=== PATIENT | female | born 1970 ===

== ENCOUNTER 2017-01-25 02:55 | Inpatient (IN) | payer MEDICARE ==
[2017-01-25 02:56] VITALS: BMI 24.2
[2017-01-25 05:19] LABS: BASO # 0.1 K/uL (0.0-0.2); BASO % 0.8 % (0.0-2.0); EOS # 0.2 K/uL (0.0-0.7); EOS % 1.4 % (0.0-4.0); HEMATOCRIT 42.8 % (34.0-47.0); LYMPH # 2.7 K/uL (1.0-4.3); LYMPH % 18.6 % (20.0-40.0); MEAN CELL VOLUME 99.9 fl (81.0-99.0); MEAN CORPUSCULAR HEMOGLOBIN 33.5 pg (27.0-31.0); MEAN CORPUSCULAR HGB CONC 33.5 g/dL (33.0-37.0); MEAN PLATELET VOLUME 7.9 fl (7.2-11.7); MONO # 0.7 K/uL (0.0-0.8); MONO % 4.7 % (0.0-10.0); NEUT # 10.6 K/uL (1.8-7.0); NEUT % 74.5 % (50.0-75.0); RED CELL DISTRIBUTION WIDTH 15.1 % (11.5-14.5); WHITE BLOOD COUNT 14.3 K/uL (4.8-10.8)
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
[2017-01-25 05:35] LABS: ALCOHOL SERUM 134 mg/dl (0-10); BLOOD UREA NITROGEN 10 mg/dl (7-17); CALCIUM 9.4 mg/dL (8.4-10.2); CARBON DIOXIDE 23 mmol/L (22-30); CHLORIDE 108 mmol/L (98-107); GFR AFRICAN-AMERICAN > 60; GLUCOSE,RANDOM 119 mg/dL (65-105); POTASSIUM 4.2 MMOL/L (3.6-5.0); SODIUM 146 mmol/l (132-148)
--- NOTE | 2017-01-25 09:45 | RAD ---
PROCEDURE: Radiographs of the right elbow. HISTORY: right elbow pain COMPARISON: No prior. FINDINGS: BONES: There is a right elbow joint dislocation identified with the humerus noted anterior to the elbow joint region. No displaced fractures are clearly seen. There is a suggestion of a tiny vira of bone along the lateral aspect of the distal supracondylar region. Tiny avulsion in this area is not excluded. Radial head is grossly intact. Olecranon shows no appreciable fracture. JOINTS: See above SOFT TISSUES: Soft tissue swelling and probable elbow joint effusion. JOINT EFFUSION: Probable joint effusion. OTHER FINDINGS: None. IMPRESSION: Elbow joint dislocation.
--- NOTE | 2017-01-25 09:46 | RAD ---
PROCEDURE: Radiographs of the right elbow. HISTORY: elbow pain COMPARISON: Earlier same day FINDINGS: BONES: Previously noted elbow joint dislocation is completely reduced. Small elbow joint effusion is noted. No displaced fractures are identified. Previously identified possible tiny vira of bony density along the distal right lateral humerus is not as well appreciated. Radial head and olecranon appear grossly intact. Soft tissue swelling is seen. JOINTS: See above SOFT TISSUES: See above JOINT EFFUSION: See above OTHER FINDINGS: None. IMPRESSION: Reduction of right elbow joint dislocation. Elbow joint effusion. No displaced fractures.
[2017-01-25] MEDS ORDERED: Oxycodone/Acetaminophen 5/325 mg Tab PO PRN (10:29)
[2017-01-25] MEDS ORDERED: Oxycodone/Acetaminophen 5/325 mg Tab ONE (10:29)
[2017-01-25] MEDS ORDERED: Pneumococcal 23-Valent Vaccine IM ONE (15:31)
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
[2017-01-26 07:29] VITALS: BP 101/65; PULSE 74; RESP 20; TEMP 98.1; O2SAT 96
--- NOTE | 2017-01-26 10:15 | CP.PCM.PN ---
Subjective - Date & Time of Evaluation Date of Evaluation: 01/26/17 Time of Evaluation: 10:14 - Subjective Subjective: patient still with a lot of pain. Objective - Vital Signs/Intake and Output Vital Signs (last 24 hours): Temp Pulse Resp BP Pulse Ox 98.1 F 74 20 101/65 96 01/26/17 07:28 01/26/17 07:28 01/26/17 07:28 01/26/17 07:28 01/26/17 07:28 - Medications Medications: Current Medications Ibuprofen (Motrin Tab) 600 mg PO TID [facility] Last Admin: 01/26/17 08:31 Dose: 600 mg Oxycodone/Acetaminophen (Percocet 5/325 Mg Tab) 1 tab PO Q4 PRN PRN Reason: Pain, severe (8-10) Stop: 01/28/17 10:30 Last Admin: 01/25/17 10:39 Dose: 1 tab Phenytoin Sodium (Dilantin) 100 mg PO Q12 [facility] Last Admin: 01/26/17 08:32 Dose: 100 mg Assessment and Plan (1) Elbow dislocation Status: Acute (2) Alcohol intoxication Status: Acute (3) Seizure disorder Status: Acute
[2017-01-26 10:16] LABS: MEAN CORPUSCULAR HGB CONC 33.9 g/dL (33.0-37.0); RED CELL DISTRIBUTION WIDTH 14.9 % (11.5-14.5)
[2017-01-26 10:21] LABS: MEAN CELL VOLUME 97.3 fl (81.0-99.0)
[2017-01-26 10:26] LABS: BLOOD UREA NITROGEN 15 mg/dl (7-17); CALCIUM 9.1 mg/dL (8.4-10.2); CARBON DIOXIDE 24 mmol/L (22-30); CHLORIDE 104 mmol/L (98-107); GFR AFRICAN-AMERICAN > 60; GLUCOSE,RANDOM 182 mg/dL (65-105); POTASSIUM 3.9 MMOL/L (3.6-5.0); SODIUM 137 mmol/l (132-148)
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
== END 2017-01-26 16:45 | disposition home or self-care (01) | DRG 563 ==
LOC: H.ER 02:55 → H.ERHOLD 06:22 → H.MEDSURG1 09:54
PROVIDERS: ADMIT Family Medicine; ATTEND Family Medicine
PROC: 3E0234Z Introduction of Serum, Toxoid and Vaccine into Muscle, Percutaneous Approach (ICD-10-PCS; principal; 2017-01-25)
PROC: 0RSLXZZ Reposition Right Elbow Joint, External Approach (ICD-10-PCS; 2017-01-25)
DX: S53.104A Unspecified dislocation of right ulnohumeral joint, initial encounter (principal); F10.129 Alcohol abuse with intoxication, unspecified; G40.909 Epilepsy, unspecified, not intractable, without status epilepticus; Z23 Encounter for immunization; Y04.8XXA Assault by other bodily force, initial encounter; Y93.9 Activity, unspecified; Y92.9 Unspecified place or not applicable; Y90.6 Blood alcohol level of 120-199 mg/100 ml; F17.210 Nicotine dependence, cigarettes, uncomplicated; Y07.03 Male partner, perpetrator of maltreatment and neglect

== ENCOUNTER 2017-04-18 20:47 | Emergency (ER) | payer MEDICARE ==
[2017-04-18 20:48] VITALS: BMI 24.2
[2017-04-18 20:58] VITALS: BP 146/76; PULSE 88; RESP 16; TEMP 98.2; O2SAT 98
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
== END 2017-04-18 22:50 | disposition home or self-care (01) ==
LOC: H.ER 20:47
DX: L30.9 Dermatitis, unspecified (principal); K62.89 Other specified diseases of anus and rectum

== ENCOUNTER 2017-05-12 22:20 | Observation (INO) | payer MEDICARE ==
[2017-05-12 22:20] VITALS: BMI 24.2
[2017-05-12 22:25] VITALS: O2SAT 100
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
[2017-05-13 04:41] VITALS: BP 116/63; PULSE 86; RESP 16; TEMP 98
== END 2017-05-13 05:41 | disposition home or self-care (01) ==
LOC: H.ER 22:20 → H.EROBSV 22:35
PROVIDERS: ADMIT Emergency Medicine; ATTEND Emergency Medicine
DX: F10.129 Alcohol abuse with intoxication, unspecified (principal); R56.9 Unspecified convulsions
CPT/HCPCS: 81025; 82948; 99283; G0378; G0480

== ENCOUNTER 2017-05-13 06:47 | Emergency (ER) | payer MEDICARE ==
[2017-05-12 22:20] VITALS: BMI 24.2
[2017-05-13 07:17] VITALS: BP 170/70; PULSE 98; RESP 20; TEMP 98.4; O2SAT 98
[2017-05-13] MEDS ORDERED: Multivitamin (MVI) 10 ML, Folic Acid 1 MG, Thiamine 100 MG in Dextrose 5%/0.45% NS 1,00... IV ONE (07:33)
== END 2017-05-13 07:56 | disposition home or self-care (01) ==
LOC: H.ER 06:47
DX: Z02.89 Encounter for other administrative examinations (principal)

== ENCOUNTER 2018-01-10 15:01 | Emergency (ER) | payer MEDICARE, OTHER ==
[2018-01-10 15:01] VITALS: BMI 24.2
[2018-01-10 15:05] VITALS: BP 114/74; PULSE 64; RESP 20; TEMP 97; O2SAT 100
--- NOTE | 2018-01-10 16:10 | RAD ---
HISTORY: clearance COMPARISON: Chest radiograph dated 10/20/2016 FINDINGS: LUNGS: No active pulmonary disease. PLEURA: No significant pleural effusion identified, no pneumothorax apparent. CARDIOVASCULAR: Normal. OSSEOUS STRUCTURES: No significant abnormalities. VISUALIZED UPPER ABDOMEN: Normal. OTHER FINDINGS: None. IMPRESSION: No active disease.
--- NOTE | 2018-01-10 16:20 | ED PDOC ---
HPI: General Adult Time Seen by Provider: 01/10/18 15:08 Chief Complaint (Nursing): Medical Clearance Chief Complaint (Provider): Medical Clearance History Per: Patient History/Exam Limitations: no limitations Onset/Duration Of Symptoms: Hrs Current Symptoms Are (Timing): Still Present Additional History Per: EMS (Police) Additional Complaint(s): 47 y/o female brought in by [facility] for medical/psychiatric clearance. As per police, while patient was incarcerated she attempted to sit on a toilet and then fell to her left side. LOC is ??? Patient denies this. She does admit to taking her Keppra today and drinking 3 beers. Patient offers no complaints at this time. Denies suicidal ideation, homicidal ideation, hallucinations, headache. PMD: none Past Medical History Reviewed: Historical Data, Nursing Documentation, Vital Signs Vital Signs: Last Vital Signs Temp 97.0 F L 01/10/18 15:03 Pulse 64 01/10/18 15:03 Resp 20 01/10/18 15:03 BP 114/74 01/10/18 15:03 Pulse Ox 100 01/10/18 18:01 - Medical History PMH: Seizures Denies: Chronic Kidney Disease - Family History Family History: States: Unknown Family Hx - Social History Alcohol: Other (drank 3 beers today) - Immunization History Hx Tetanus Toxoid Vaccination: No Hx Influenza Vaccination: No Hx Pneumococcal Vaccination: No - Home Medications Home Medications: Ambulatory Orders Medication Instructions Recorded Ibuprofen [Motrin Tab] 600 mg PO Q6 #30 tab 01/26/17 Phenytoin, Extended [Dilantin] 100 mg PO BID #30 01/26/17 Cephalexin [Keflex] 500 mg PO BID #14 capsule 04/18/17 Nystatin [Mycostatin Cream] 1 appl TP BID #1 tube 04/18/17 Nitrofurantoin Macrocrystals 100 mg PO BID #13 cap 01/10/18 [Macrobid] - Allergies Allergies/Adverse Reactions: Allergies Allergy/AdvReac Type Severity Reaction Status Date / Time No Known Allergies Allergy Verified 04/18/17 20:58 Review of Systems ROS Statement: Except As Marked, All Systems Reviewed And Found Negative Musculoskeletal: Positive for: Other (head injury with questionable LOC) Neurological: Negative for: Headache Psych: Negative for: Suicidal ideation (or homicidal), Other (hallucinations) Physical Exam - Reviewed Nursing Documentation Reviewed: Yes Vital Signs Reviewed: Yes - Physical Exam Appears: Positive for: Well, Non-toxic Head Exam: Positive for: NORMOCEPHALIC (with mild swelling, no ecchymosis or tenderness to the right side of forehead, minimal swelling to the left cheek) Skin: Positive for: Normal Color, Warm, Dry Eye Exam: Positive for: Normal appearance ENT: Positive for: Other (superficial abrasion to left nasal bridge, no tenderness or swelling) Neck: Positive for: Normal, Painless ROM (with no midline tenderness) Cardiovascular/Chest: Positive for: Regular Rate, Rhythm, Chest Non Tender. Negative for: Murmur Respiratory: Positive for: Normal Breath Sounds. Negative for: Accessory Muscle Use, Respiratory Distress Gastrointestinal/Abdominal: Positive for: Soft, Other (no ecchymosis). Negative for: Tenderness Extremity: Positive for: Normal ROM (actively x 4 extremities). Negative for: Deformity, Swelling Neurologic/Psych: Positive for: Alert, Other (alcohol on breath, slurred speech) - Laboratory Results Result Diagrams: 01/10/18 16:15 01/10/18 16:15 Urine POC: Negative Urine dip results: Positive for: Leukocyte Esterase (small). Negative for: Blood, Nitrate, Ketones, Glucose, Bilirubin, Protein - ECG O2 Sat by Pulse Oximetry: 100 (RA) Pulse Ox Interpretation: Normal - Radiology X-Ray: Interpreted by Me, Viewed By [place] X-Ray Interpretation: No Acute Disease Medical Decision Making Medical Decision Making: Initial Impression: ETOH intoxication, Head injury with questionable LOC Time: 15:22 Initial Plan: --EKG --CMP --Urine drug screen --Alcohol serum --Levetiracetam level --CBC --Chest X-Ray --Urinalysis --Urine culture --Head, Maxillofacial, and C-spine CT scans Time: 16:38 CT Head: FINDINGS: HEMORRHAGE: No intracranial hemorrhage. BRAIN: No mass effect or edema. No cerebral atrophy or chronic microvascular ischemic changes. Advanced cerebellar atrophy for age. VENTRICLES: Unremarkable. No hydrocephalus. CALVARIUM: Unremarkable. PARANASAL SINUSES: Unremarkable as visualized. No significant inflammatory changes. MASTOID AIR CELLS: Unremarkable as visualized. No inflammatory changes. OTHER FINDINGS: None. IMPRESSION: No acute intracranial pathology. Time: 16:42 CT Maxillofacial: FINDINGS: NASAL BONES: No acute fracture. ORBITS: Unremarkable. PARANASAL SINUSES/ MASTOIDS: Clear. MAXILLA: Unremarkable. MANDIBLE/ TEMPOROMANDIBULAR JOINTS: Unremarkable. SKULL BASE: Unremarkable. TEMPORAL BONES: Middle ears and mastoid grossly unremarkable. OTHER FINDINGS: None. IMPRESSION: No acute traumatic injury. Time: 16:45 CT Cervical Spine FINDINGS: VERTEBRAE: No fracture. Reversal of normal lordosis centered at C5-6. No destructive bony lesion. DISCS/SPINAL CANAL/NEURAL FORAMINA: C5-6 and C6-7 narrowing. PARASPINAL SOFT TISSUES: Unremarkable. OTHER FINDINGS: Biapical emphysematous change. IMPRESSION: No acute traumatic injury. Focal lower cervical spine degenerative changes. 17:50 warm in worker Vandana evaluated patient and spoke with Dr. Mandujano, patient is psychiatrically cleared for incarceration. Labs reviewed. Patient is medically and psychiatrically cleared for incarceration. Macrobid PO, keppra 750mg PO ordered. Scribe Attestation: Documented by Shaylee Norwood, acting as a scribe for Romie Camargo PA-C. Provider Scribe Attestation: All medical record entries made by the Scribe were at my direction and personally dictated by me. I have reviewed the chart and agree that the record accurately reflects my personal performance of the history, physical exam, medical decision making, and the department course for this patient. I have also personally directed, reviewed, and agree with the discharge instructions and disposition. Disposition - Clinical Impression Clinical Impression: Alcohol use disorder, Head injury - Patient ED Disposition Is Patient to be Admitted: No Counseled Patient/Family Regarding: Studies Performed, Diagnosis - Disposition Disposition: Discharged/Transfer to Law Enforcement Disposition Time: 17:55 Condition: IMPROVED Additional Instructions: Patient is medically and psychiatrically cleared for incarceration. Prescriptions: Nitrofurantoin Macrocrystals [Macrobid] 100 mg PO BID #13 cap Instructions: Minor Head Injury (DC) Forms: [employer] [facility] ([place])
[2018-01-10 16:25] LABS: BASO # 0.1 K/uL (0.0-0.2); BASO % 0.8 % (0.0-2.0); EOS # 0.2 K/uL (0.0-0.7); EOS % 1.7 % (0.0-4.0); HEMOGLOBIN 14.4 g/dL (12.0-16.0); LYMPH # 2.4 K/uL (1.0-4.3); MEAN CELL VOLUME 97.9 fl (81.0-99.0); MEAN CORPUSCULAR HEMOGLOBIN 33.5 pg (27.0-31.0); MEAN CORPUSCULAR HGB CONC 34.3 g/dL (33.0-37.0); MEAN PLATELET VOLUME 8.3 fl (7.2-11.7); MONO # 0.5 K/uL (0.0-0.8); MONO % 5.6 % (0.0-10.0); NEUT # 6.5 K/uL (1.8-7.0); NEUT % 66.9 % (50.0-75.0); RBC 4.29 Mil/uL (3.80-5.20); RED CELL DISTRIBUTION WIDTH 14.9 % (11.5-14.5); WHITE BLOOD COUNT 9.6 K/uL (4.8-10.8)
[2018-01-10 16:37] LABS: ALB/GLOB RATIO 1.3 (1.0-2.1); ALBUMIN 4.4 g/dL (3.5-5.0); ALT/SGPT 51 U/L (9-52); AST/SGOT 32 U/L (14-36); BLOOD UREA NITROGEN 13 mg/dl (7-17); CALCIUM 9.8 mg/dL (8.4-10.2); GFR AFRICAN-AMERICAN > 60; GFR NON-AFRICAN AMERICAN > 60
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
[2018-01-10 16:58] LABS: BARBITURATES, UR NEGATIVE (NEGATIVE); BENZODIAZEPINES, UR NEGATIVE (NEGATIVE); OPIATES, UR NEGATIVE (NEGATIVE); PHENCYCLIDINE, UR NEGATIVE (NEGATIVE)
--- NOTE | 2018-01-11 09:21 | CARD ---
APPROVED REPORT EKG Measurement Heart [id number] <Conclusion> Normal sinus rhythm Normal ECG
== END 2018-01-10 18:51 | disposition home or self-care (01) ==
LOC: H.ER 15:01
DX: S09.90XA Unspecified injury of head, initial encounter (principal); W19.XXXA Unspecified fall, initial encounter; Y92.89 Other specified places as the place of occurrence of the external cause; F10.129 Alcohol abuse with intoxication, unspecified
CPT/HCPCS: 70450; 70486; 71045; 72125; 80053; 80299; 81025; 82948; 85025; 93005; 99285; G0480

== ENCOUNTER 2018-09-10 22:04 | Emergency (ER) | payer MEDICARE, OTHER ==
[2018-09-10 22:04] VITALS: BMI 24.2
[2018-09-10] MEDS ORDERED: Tdap Vaccine 0.5 ml Vial (10-64 yrs) IM ONE (22:23)
[2018-09-10] MEDS ORDERED: Lidocaine 2% w Epi 1:100,000 Inj IJ ONE ×2 (22:23→22:28)
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
--- NOTE | 2018-09-11 05:12 | ED PDOC ---
- ECG O2 Sat by Pulse Oximetry: 100 Pulse Ox Interpretation: Normal Medical Decision Making Medical Decision Making: Zygomatic fx on CT of face. Pt slept comfortable in ER. Disposition - Clinical Impression Clinical Impression: Facial laceration, Head injury, Alcohol intoxication - POA Present On Arrival: None - Disposition Referrals: [facility] [Outside] Disposition: Routine/Home Disposition Time: 05:11 Condition: FAIR Additional Instructions: Please follow-up with with facial surgeon. Instructions: Laceration Repair, Closed Head Injury (DC), Alcohol Abuse and Alcoholism (DC)
[2018-09-11 08:02] VITALS: BP 118/70; PULSE 72; RESP 22; TEMP 97.7; O2SAT 99
--- NOTE | 2018-09-11 13:38 | CT ---
Date of service: 09/10/2018 PROCEDURE: CT HEAD WITHOUT CONTRAST. HISTORY: Head injury COMPARISON: Comparison made with CT scan brain 01/10/2018. Correlation also made with concurrent CT scan maxillofacial skeleton TECHNIQUE: Axial computed tomography images were obtained through the head/brain without intravenous contrast. Radiation dose: Total exam DLP = 1517.88 mGy-cm. This CT exam was performed using one or more of the following dose reduction techniques: Automated exposure control, adjustment of the mA and/or kV according to patient size, and/or use of iterative reconstruction technique. FINDINGS: HEMORRHAGE: No acute parenchymal, subarachnoid or extra-axial the hemorrhage. BRAIN: Redemonstrated is marked atrophy of the posterior fossa structures with ex vacuo dilatation of the 4th ventricle. Marked dilatation of the cerebellar subarachnoid spaces as well. Findings are of uncertain etiology though rule out sequela significant ETOH abuse, Dilantin and other degenerative neurologic etiologies. VENTRICLES: Unremarkable. No hydrocephalus. CALVARIUM: Unremarkable. PARANASAL SINUSES: Unremarkable as visualized. No significant inflammatory changes. MASTOID AIR CELLS: Unremarkable as visualized. No inflammatory changes. OTHER FINDINGS: None. IMPRESSION: No acute intracranial hemorrhage. Redemonstrated is marked atrophy of the posterior fossa structures with ex vacuo dilatation of the 4th ventricle. Marked dilatation of the cerebellar subarachnoid spaces as well. Findings are of uncertain etiology though rule out sequela significant ETOH abuse, Dilantin and other degenerative neurologic etiologies.
--- NOTE | 2018-09-11 13:50 | CT ---
Date of service: 09/10/2018 PROCEDURE: CT Cervical Spine without contrast HISTORY: Neck injury COMPARISON: Correlation made with concurrent CT scans of the brain and orbits. TECHNIQUE: Axial computed tomography images were obtained of the cervical spine without the use of intravenous contrast. Coronal and sagittal reformatted images were created and reviewed. Radiation dose: Total exam DLP = 286.95 mGy-cm. This CT exam was performed using one or more of the following dose reduction techniques: Automated exposure control, adjustment of the mA and/or kV according to patient size, and/or use of iterative reconstruction technique. FINDINGS: VERTEBRAE: There are no acute acute displaced-compression fractures nor retropulsed fragments. Vertebral bodies exhibit relatively normal stature. There is straightening of the normal cervical lordosis which could be secondary to patient positioning gantry however an element of muscle spasm may contribute. DISCS/SPINAL CANAL/NEURAL FORAMINA: Multilevel degenerative spondylosis present. At the C2-C3 level, there is minimal degenerative squaring of the uncovertebral joints. Facets also hypertrophic. Central canal and exit foramina adequate. At the C3-C4 level, there also minimal degenerative squaring of the uncovertebral joints and facet arthropathy left greater than right. Left exit foramen is narrowed. Right exit foramen adequate. At the C4-C5 level, there is adequate disc height. No disc herniation or significant disc bulge. The overall central bony canal appears adequate. Facet joints are slightly overgrown. Exit foramina also adequate At the C5-C6 level, there is disc space narrowing with small broad-based osteophytic ridge disc complex also contiguous with hypertrophic uncovertebral joints. Changes result in mild canal narrowing and cord compression. Exit foramina stenotic bilaterally left greater than right. At the C6-C7 level, there is disc desiccation, disc space narrowing with cortical endplate irregularity/sclerosis and subchondral cystic changes. Small broad-based disc ridge complex contiguous with hypertrophic uncovertebral joints. Changes result in moderate central canal stenosis and cord compression. The exit foramina stenotic bilaterally. PARASPINAL SOFT TISSUES: Unremarkable. OTHER FINDINGS: Significant cerebellar atrophy changes again noted Emphysematous changes seen in the lung apices and upper lobes. IMPRESSION: No evidence of acute fracture. Multilevel degenerative spondylosis most notably affecting the C6-C7, C5-C6 and to a lesser degree C4-C5 levels as detailed above
--- NOTE | 2018-09-11 15:46 | CT ---
Date of service: 09/10/2018 PROCEDURE: CT ORBITS WITHOUT CONTRAST. HISTORY: Facial injury COMPARISON: Comparison made with concurrent CT scan brain TECHNIQUE: Axial CT images of the orbits were obtained. Coronal and sagittal reformats were generated. Radiation dose: Total exam DLP = 1517.89 mGy-cm. This CT exam was performed using one or more of the following dose reduction techniques: Automated exposure control, adjustment of the mA and/or kV according to patient size, and/or use of iterative reconstruction technique. FINDINGS: Right-sided nasal bone fractures with suspected left-sided nasal bone fractures as well. There is minor overlying soft tissue swelling right greater than left... The remaining maxillofacial skeletal structures intact. Orbits and contents unremarkable however there is mild periorbital and right lateral periorbital soft tissue swelling.. Few small bubbles of air present within the subcutaneous tissues lateral aspect of the right orbit possibly secondary to a laceration. Note that this report was placed in PA review folder for follow up. OTHER: None. IMPRESSION: Fractures of the right and possibly left nasal bones. There also appears to be a nondisplaced fracture of the right zygomatic arch. Mild right-sided facial soft tissue swelling. Few small bubbles of air present within the subcutaneous tissues lateral aspect of the right orbit possibly secondary to a laceration. Note that this report was placed in PA review folder for follow up. Note that this report was placed in PA review folder for follow up.
== END 2018-09-11 06:01 | disposition home or self-care (01) ==
LOC: H.ER 22:04
DX: S01.111A Laceration without foreign body of right eyelid and periocular area, initial encounter (principal); S09.90XA Unspecified injury of head, initial encounter; F10.129 Alcohol abuse with intoxication, unspecified; Y04.2XXA Assault by strike against or bumped into by another person, initial encounter
CPT/HCPCS: 12011; 72HRC

== ENCOUNTER 2018-09-12 23:11 | Inpatient (IN) | payer OTHER, MEDICAID ==
[2018-09-12 23:11] VITALS: BMI 24.2
[2018-09-12] MEDS ORDERED: Multivitamin (MVI) 10 ML, Thiamine 100 MG, Folic Acid 1 MG in Sodium Chloride 0.9% 1,00... IV ONE (23:29)
[2018-09-13 00:27] LABS: ALB/GLOB RATIO 1.3 (1.0-2.1); ALBUMIN 4.3 g/dL (3.5-5.0); BLOOD UREA NITROGEN 13 mg/dl (7-17); CALCIUM 9.2 mg/dL (8.4-10.2); GFR NON-AFRICAN AMERICAN > 60
[2018-09-13 00:41] LABS: ALT/SGPT 18 U/L (9-52); AST/SGOT 40 U/L (14-36)
[2018-09-13 00:47] LABS: BASO % 0.3 % (0.0-2.0); EOS # 0.1 K/uL (0.0-0.7); EOS % 0.8 % (0.0-4.0); LYMPH # 0.3 K/uL (1.0-4.3); MEAN CELL VOLUME 97.6 fl (81.0-99.0); MEAN CORPUSCULAR HEMOGLOBIN 31.8 pg (27.0-31.0); MEAN CORPUSCULAR HGB CONC 32.6 g/dL (33.0-37.0); MEAN PLATELET VOLUME 8.3 fl (7.2-11.7); MONO # 0.5 K/uL (0.0-0.8); MONO % 4.5 % (0.0-10.0); NEUT # 10.1 K/uL (1.8-7.0); NEUT % 91.4 % (50.0-75.0); NRBC % 0.1 % (0.0-0.0); PLATELET COUNT 360 K/uL (130-400); RBC 3.77 Mil/uL (3.80-5.20); RED CELL DISTRIBUTION WIDTH 14.8 % (11.5-14.5)
--- NOTE | 2018-09-13 00:59 | ED PDOC ---
HPI: Seizure Time Seen by Provider: 09/12/18 23:24 Chief Complaint (Nursing): Seizure Chief Complaint (Provider): Seizure History Per: Patient, EMS History/Exam Limitations: no limitations Recent Seizure Activity Began: Unknown Additional Complaint(s): 48 y/o female with history of siezures brought in from [facility] for seizure. Patient is known to ED staff for alcoholism and seizures. Questionable compliance with Dilantin. On arrival patient noted to have defecated. PMD: non provided Past Medical History Reviewed: Historical Data, Nursing Documentation, Vital Signs Vital Signs: Last Vital Signs Temp 97.8 F 09/12/18 23:13 Pulse 117 H 09/12/18 23:13 Resp 16 09/12/18 23:13 BP 118/68 09/12/18 23:13 Pulse Ox 95 09/12/18 23:13 - Medical History PMH: Pneumonia, Seizures Denies: Diabetes, Hepatitis, HIV, HTN, Chronic Kidney Disease, Sexually Transmitted Disease - Surgical History Surgical History: No Surg Hx - Family History Family History: States: Unknown Family Hx - Social History Current smoker - smoking cessation education provided: No Alcohol: Other (Daily) Drugs: Denies - Immunization History Hx Tetanus Toxoid Vaccination: No Hx Influenza Vaccination: No Hx Pneumococcal Vaccination: No - Home Medications Home Medications: Ambulatory Orders Medication Instructions Recorded RX: Ibuprofen [Motrin Tab] 600 mg PO Q6 #30 tab 01/26/17 RX: Phenytoin, Extended [Dilantin] 100 mg PO BID #30 01/26/17 Cephalexin [Keflex] 500 mg PO BID #14 capsule 04/18/17 RX: Nystatin [Mycostatin Cream] 1 appl TP BID #1 tube 04/18/17 Nitrofurantoin Macrocrystals 100 mg PO BID #13 cap 01/10/18 [Macrobid] - Allergies Allergies/Adverse Reactions: Allergies Allergy/AdvReac Type Severity Reaction Status Date / Time No Known Allergies Allergy Verified 09/10/18 22:15 Review of Systems ROS Statement: Except As Marked, All Systems Reviewed And Found Negative Neurological: Positive for: Seizures Physical Exam - Reviewed Nursing Documentation Reviewed: Yes Vital Signs Reviewed: Yes - Physical Exam Appears: Positive for: Non-toxic, No Acute Distress Head Exam: Positive for: ATRAUMATIC, NORMOCEPHALIC Skin: Positive for: Normal Color, Warm, Dry Eye Exam: Positive for: Normal appearance, EOMI, PERRL Neck: Positive for: Normal, Painless ROM, Supple Cardiovascular/Chest: Positive for: Regular Rate, Rhythm. Negative for: Murmur Respiratory: Positive for: Normal Breath Sounds. Negative for: Wheezing Gastrointestinal/Abdominal: Positive for: Normal Exam, Soft. Negative for: Tenderness Back: Positive for: Normal Inspection. Negative for: L CVA Tenderness, R CVA Tenderness Extremity: Positive for: Normal ROM. Negative for: Pedal Edema, Deformity Neurologic/Psych: Positive for: Alert, Oriented (x3) - Laboratory Results Result Diagrams: 09/17/18 04:31 09/17/18 04:31 - ECG O2 Sat by Pulse Oximetry: 95 (RA) Pulse Ox Interpretation: Normal Medical Decision Making Medical Decision Making: Time: 2327 Initial Impression: 48 y/o female brought in for seizure of unknown onset Initial Plan: --Labs [address] Arce, pending reevaluation. Scribe Attestation: Documented by Fouzia Garrido, acting as a scribe for Melvin Caruso MD. Provider Scribe Attestation: All medical record entries made by the Scribe were at my direction and personally dictated by me. I have reviewed the chart and agree that the record accurately reflects my personal performance of the history, physical exam, medical decision making, and the department course for this patient. I have also personally directed, reviewed, and agree with the discharge instructions and disposition. Disposition - Clinical Impression Clinical Impression: Witnessed seizure, Fever, Altered mental state - Patient ED Disposition Is Patient to be Admitted: Transfer of Care (to Dr. Arce) - Disposition Disposition: Transfer of Care Disposition Time: 07:00 Condition: GUARDED
[2018-09-13 03:22] LABS: EOSINOPHIL 1 % (0-7); LYMPHOCYTE 6 % (20-50); MONOCYTE 4 % (0-10); NEUTROPHIL 89 % (42-75); PLATELET ESTIMATE NORMAL (NORMAL); TOTAL CELLS COUNTED 100
[2018-09-13 03:23] LABS: ANISOCYTOSIS SLIGHT
--- NOTE | 2018-09-13 07:21 | ED PDOC ---
- Laboratory Results Result Diagrams: 09/13/18 09:30 09/13/18 09:30 - ECG O2 Sat by Pulse Oximetry: 95 (RA) Pulse Ox Interpretation: Normal - Critical Care Total Time (In Min): 60 Documented Critical Care: Time excludes all time spent performint seperately billable procedures Medical Decision Making Medical Decision Making: Time: 07:00 --Patient transferred to this provider by Dr. Caruso pending reevaluation. 07:15 --On evaluation, patient is sleeping but arousable. Notified that patient may have fallen in her room. On exam, there is a swelling on her left parietal s calp. --Head CT ordered. 07:40 --Influenza was negative. --CXR 08:[address] FINDINGS: HEMORRHAGE: No intracranial hemorrhage. BRAIN: Johnson-white matter differentiation is preserved. There is no mass, mass effect or abnormal extra-axial fluid collection. There is no territorial infarction. The midline sagittal structures are normal. VENTRICLES: There is moderate age advanced cerebellar volume loss and proportionate enlargement of the folia. CALVARIUM: There is no calvarial fracture. There is a small parietal soft tissue swelling. PARANASAL SINUSES: Predominantly clear. MASTOID AIR CELLS: Predominantly clear. OTHER FINDINGS: None. IMPRESSION: No acute intracranial abnormality. 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 08:49 --Tylenol 650 mg PO --NS IV 1,000 mls 09:15 --CMP --CBC --UDS --Urine dip --VBG --Urine straight catheterization -Vanc IV Rocephine IV IVF reassess 11:45 --Ativan 2 mg IV 1150 Attempted to perform LP-unsuccessful attempt 12:35 --MRI of the brain ordered due to AMS and fever. 13:09 --Critical care consult placed. --Patient will be admitted to the ICU to the service of Dr. Noble. Admitting di agnoses are AMS, fever and seizures. Scribe Attestation: Documented by Elisabet Coelho acting as a scribe for Sujit Arce MD Provider Scribe Attestation: All medical record entries made by the Scribe were at my direction and personally dictated by me. I have reviewed the chart and agree that the record accurately reflects my personal performance of the history, physical exam, medical decision making, and the department course for this patient. I have also personally directed, reviewed, and agree with the discharge instructions and disposition. Disposition Discussed With : Carolin Noble Doctor Will See Patient In The: Hospital Counseled Patient/Family Regarding: Studies Performed, Diagnosis - Clinical Impression Clinical Impression: Witnessed seizure, Fever, Altered mental state - POA Present On Arrival: None - Disposition Disposition: Admitted as In-Patient Disposition Time: 13:09 Condition: GUARDED - Lumbar Puncture Procedure LP Procedure: Head CT Completed (Emergent consent) Position for Procedure: Left Lateral Injection Location: L 3-4 (unable to obtain CSF) Time Out Process - Time Out Process Patient identification (MR# and name from ID Band): Yes Procedure verified: Yes Correct Site/Side marked and visibe to team after prepping: Yes Correct position: Yes
--- NOTE | 2018-09-13 08:45 | CT ---
Date of service: 09/13/2018 PROCEDURE: CT HEAD WITHOUT CONTRAST. HISTORY: Fall, head injury COMPARISON: 09/10/2018. TECHNIQUE: Axial computed tomography images were obtained through the head/brain without intravenous contrast. Radiation dose: Total exam DLP = 1973.37 mGy-cm. This CT exam was performed using one or more of the following dose reduction techniques: Automated exposure control, adjustment of the mA and/or kV according to patient size, and/or use of iterative reconstruction technique. FINDINGS: HEMORRHAGE: No intracranial hemorrhage. BRAIN: Johnson-white matter differentiation is preserved. There is no mass, mass effect or abnormal extra-axial fluid collection. There is no territorial infarction. The midline sagittal structures are normal. VENTRICLES: There is moderate age advanced cerebellar volume loss and proportionate enlargement of the folia. CALVARIUM: There is no calvarial fracture. There is a small parietal soft tissue swelling. PARANASAL SINUSES: Predominantly clear. MASTOID AIR CELLS: Predominantly clear. OTHER FINDINGS: None. IMPRESSION: No acute intracranial abnormality. 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
[2018-09-13] MEDS ORDERED: Sodium Chloride 0.9% 1,000 ML IV STA ×3 (08:49→13:06)
[2018-09-13 09:36] LABS: VENOUS BLOOD GAS BASE EXCESS 2.7 mmol/L (0.0-2.0); VENOUS BLOOD GAS PCO2 44 mmHg (40-60); VENOUS BLOOD GAS PO2 40 mm/Hg (30-55); VENOUS BLOOD PH 7.41 (7.32-7.43)
--- NOTE | 2018-09-13 09:47 | RAD ---
Date of service: 09/13/2018 HISTORY: fever COMPARISON: 01/10/2018. FINDINGS: LUNGS: The lungs are well inflated and clear. PLEURA: No pleural effusions or pneumothorax. CARDIOVASCULAR: The heart is normal in size. No aortic atherosclerotic calcification present. OSSEOUS STRUCTURES: Within normal limits for the patient's age. VISUALIZED UPPER ABDOMEN: Normal. OTHER FINDINGS: None. IMPRESSION: No active pulmonary disease.
[2018-09-13 09:49] LABS: BASO % 0.6 % (0.0-2.0); EOS # 0.1 K/uL (0.0-0.7); EOS % 1.6 % (0.0-4.0); HEMOGLOBIN 11.1 g/dL (12.0-16.0); LYMPH # 0.5 K/uL (1.0-4.3); LYMPH % 8.2 % (20.0-40.0); MEAN CELL VOLUME 97.9 fl (81.0-99.0); MEAN CORPUSCULAR HEMOGLOBIN 31.8 pg (27.0-31.0); MEAN CORPUSCULAR HGB CONC 32.5 g/dL (33.0-37.0); MEAN PLATELET VOLUME 7.9 fl (7.2-11.7); MONO # 0.5 K/uL (0.0-0.8); MONO % 7.7 % (0.0-10.0); NEUT # 4.9 K/uL (1.8-7.0); NEUT % 81.9 % (50.0-75.0); RBC 3.48 Mil/uL (3.80-5.20); RED CELL DISTRIBUTION WIDTH 14.8 % (11.5-14.5)
[2018-09-13 09:55] LABS: BLOOD UREA NITROGEN 10 mg/dl (7-17); GFR NON-AFRICAN AMERICAN > 60
[2018-09-13] MEDS ORDERED: Piperacillin/Tazobact 3.375 GM in Sodium Chloride 0.9% 100 ML IVPB STA (09:56)
[2018-09-13] MEDS ORDERED: Vancomycin 1 g Inj ONE (10:09)
[2018-09-13] MEDS ORDERED: Piperacillin/Tazobact 3.375 gm Inj IVPB ONE (10:09)
[2018-09-13 10:20] LABS: BARBITURATES, UR NEGATIVE (NEGATIVE)
[2018-09-13 10:22] LABS: BENZODIAZEPINES, UR NEGATIVE (NEGATIVE); OPIATES, UR NEGATIVE (NEGATIVE); PHENCYCLIDINE, UR NEGATIVE (NEGATIVE)
[2018-09-13] MEDS ORDERED: Lidocaine 1% Inj (20ml) ONE (11:28)
[2018-09-13] MEDS ORDERED: cefTRIAXone (Rocephin) 1 gm Inj ONE (13:00)
[2018-09-13] MEDS ORDERED: Multivitamin (MVI) 10 ML, Thiamine 100 MG, Folic Acid 1 MG in Dextrose 5%/0.45% NS 1,00... IV ONE (13:57)
--- NOTE | 2018-09-13 15:24 | CP.PCM.CON ---
History of Present Illness - History of Present Illness History of Present Illness: As per chart: 48 yr old woman who may have fallen in her mcc, with fever, and was unresponsive in the ER. SHE has a history of questionable epilepsy and is on dilantin and ct head shows some edema and profound cerebellar atrophy with no stroke, or hemorrhage. We are not able to obtain a history as the patient is unresponsive. EEG has not been done as of yet. On exam in the ICU, patient is responsive, and waking up, but is nonverbal. She does not follow commands but is moving all extremities. ROS: not obtainable PMh/PSH: not known. FH/SH:HOmeless and alcoholic. Drug use not known. All: nkda. ON exam: awake, not alert, not following commands. PERRL. EOMI. CN 2-12 normal. moving all extremities. sensory: not possible to test. Cerebellar: as above. +2 dtr ul and ll bl. Toes downgoing. NO clonus. Past Patient History - Past Medical History & Family History Past Medical History?: Yes - Past Social History Smoking Status: Current Some Days Smoker - CARDIAC Hx Cardiac Disorders: No Hx Hypertension: No - PULMONARY Hx Respiratory Disorders: Yes Hx Pneumonia: Yes - NEUROLOGICAL Hx Neurological Disorder: Yes Hx Seizures: Yes Hx Syncope: Yes - HEENT Hx HEENT Problems: No - RENAL Hx Chronic Kidney Disease: No - ENDOCRINE/METABOLIC Hx Endocrine Disorders: No - HEMATOLOGICAL/ONCOLOGICAL Hx Blood Disorders: No Hx Human Immunodeficiency Virus (HIV): No - INTEGUMENTARY Hx Dermatological Problems: No - MUSCULOSKELETAL/RHEUMATOLOGICAL Hx Musculoskeletal Disorders: No Hx Falls: Yes - GASTROINTESTINAL Hx Gastrointestinal Disorders: No - GENITOURINARY/GYNECOLOGICAL Hx Sexually Transmitted Disorders: No - PSYCHIATRIC Hx Psychophysiologic Disorder: No Hx Substance Use: Yes (unable to assess) - SURGICAL HISTORY Hx Surgeries: Yes - ANESTHESIA Hx Anesthesia: Yes (unable to assess) Hx Anesthesia Reactions: (unable to assess) Hx Malignant Hyperthermia: (unable to assess) Has any member of the family had a problem w/ anesthesia?: (unable to assess) Meds Allergies/Adverse Reactions: Allergies Allergy/AdvReac Type Severity Reaction Status Date / Time No Known Allergies Allergy Verified 09/10/18 22:15 - Medications Medications: Current Medications Acetaminophen (Tylenol 325mg Tab) 650 mg PO Q6 PRN PRN Reason: Temperature Enoxaparin Sodium (Lovenox) 40 mg SC DAILY COLETTE; Protocol Fosphenytoin Sodium (Cerebyx) 100 mg IV Q8 COLETTE Multivitamins/Vitamin C 10 ml/Thiamine HCl 100 mg/ Folic Acid 1 mg/ Dextro se/Sodium Chloride 1,011.2 mls @ 175 mls/hr IV .Q5H47M ONE Stop: 09/13/18 19:43 Ceftriaxone Sodium 1 gm/ (Sodium Chloride) 100 mls @ 100 mls/hr IVPB DAILY COLETTE; Protocol Vancomycin HCl 1 gm/ Sodium (Chloride) 250 mls @ 166.667 mls/hr IVPB DAILY COLETTE; Protocol Potassium Chloride/Dextrose/Sod Cl (Potassium Chl 20 Meq In D5-1/2ns) 1,000 mls @ 100 mls/hr IV .Q10H COLETTE Stop: 09/14/18 14:06 Results - Vital Signs Recent Vital Signs: Last Vital Signs Temp 98.5 F 09/13/18 14:44 Pulse 83 09/13/18 14:44 Resp 22 09/13/18 14:44 BP 101/64 09/13/18 14:44 Pulse Ox 95 09/13/18 14:47 - Labs Result Diagrams: 09/14/18 05:13 09/14/18 05:13 Labs: Laboratory Results - last 24 hr 09/13/18 09/13/18 09/13/18 00:04 00:04 00:04 WBC 11.0 H RBC 3.77 L Hgb 12.0 D Hct 36.8 MCV 97.6 MCH 31.8 H MCHC 32.6 L RDW 14.8 H Plt Count 360 MPV 8.3 Neut % (Auto) 91.4 H Lymph % (Auto) 3.0 L Mcminn % (Auto) 4.5 Eos % (Auto) 0.8 Baso % (Auto) 0.3 Neut # (Auto) 10.1 H Lymph # (Auto) 0.3 L Mcminn # (Auto) 0.5 Eos # (Auto) 0.1 Baso # (Auto) 0.0 Neutrophils % (Manual) 89 H Lymphocytes % (Manual) 6 L Monocytes % (Manual) 4 Eosinophils % (Manual) 1 Platelet Estimate Normal Anisocytosis (manual) Slight pO2 VBG pH VBG pCO2 VBG HCO3 VBG Total CO2 VBG O2 Sat (Calc) VBG Base Excess VBG Potassium Glucose Lactate FiO2 Sodium 132 Potassium 4.5 Chloride 97 L Carbon Dioxide 26 Anion Gap 14 BUN 13 Creatinine 0.8 Est GFR ( Amer) > 60 Est GFR (Non-Af Amer) > 60 Random Glucose 96 Calcium 9.2 Phosphorus 3.4 Magnesium 1.7 Total Bilirubin 0.7 AST 40 H D ALT 18 Alkaline Phosphatase 66 Total Protein 7.8 Albumin 4.3 Globulin 3.5 Albumin/Globulin Ratio 1.3 Venous Blood Potassium Urine Opiates Screen Urine Methadone Screen Ur Barbiturates Screen Phenytoin < 3.0 L Ur Phencyclidine Scrn Ur Amphetamines Screen U Benzodiazepines Scrn U Oth Cocaine Metabols U Cannabinoids Screen Alcohol, Quantitative < 10 Influenza Typ A,B (EIA) 09/13/18 09/13/18 09/13/18 07:59 09:30 09:30 WBC 6.0 RBC 3.48 L Hgb 11.1 L Hct 34.1 MCV 97.9 MCH 31.8 H MCHC 32.5 L RDW 14.8 H Plt Count 301 MPV 7.9 Neut % (Auto) 81.9 H Lymph % (Auto) 8.2 L Mcminn % (Auto) 7.7 Eos % (Auto) 1.6 Baso % (Auto) 0.6 Neut # (Auto) 4.9 Lymph # (Auto) 0.5 L Mcminn # (Auto) 0.5 Eos # (Auto) 0.1 Baso # (Auto) 0.0 Neutrophils % (Manual) Lymphocytes % (Manual) Monocytes % (Manual) Eosinophils % (Manual) Platelet Estimate Anisocytosis (manual) pO2 VBG pH VBG pCO2 VBG HCO3 VBG Total CO2 VBG O2 Sat (Calc) VBG Base Excess VBG Potassium Glucose Lactate FiO2 Sodium 135 Potassium 3.7 Chloride 105 Carbon Dioxide 25 Anion Gap 9 L BUN 10 Creatinine 0.7 Est GFR ( Amer) > 60 Est GFR (Non-Af Amer) > 60 Random Glucose 94 Calcium 8.0 L Phosphorus Magnesium Total Bilirubin AST ALT Alkaline Phosphatase Total Protein Albumin Globulin Albumin/Globulin Ratio Venous Blood Potassium Urine Opiates Screen Urine Methadone Screen Ur Barbiturates Screen Phenytoin Ur Phencyclidine Scrn Ur Amphetamines Screen U Benzodiazepines Scrn U Oth Cocaine Metabols U Cannabinoids Screen Alcohol, Quantitative Influenza Typ A,B (EIA) Negative for flu a/b 09/13/18 09/13/18 09:30 09:54 WBC RBC Hgb Hct MCV MCH MCHC RDW Plt Count MPV Neut % (Auto) Lymph % (Auto) Mcminn % (Auto) Eos % (Auto) Baso % (Auto) Neut # (Auto) Lymph # (Auto) Mcminn # (Auto) Eos # (Auto) Baso # (Auto) Neutrophils % (Manual) Lymphocytes % (Manual) Monocytes % (Manual) Eosinophils % (Manual) Platelet Estimate Anisocytosis (manual) pO2 40 VBG pH 7.41 VBG pCO2 44 VBG HCO3 26.4 VBG Total CO2 29.3 H VBG O2 Sat (Calc) 78.8 H VBG Base Excess 2.7 H VBG Potassium 3.7 Glucose 90 Lactate 0.8 FiO2 21.0 Sodium 135.0 Potassium Chloride 106.0 Carbon Dioxide Anion Gap BUN Creatinine Est GFR ( Amer) Est GFR (Non-Af Amer) Random Glucose Calcium Phosphorus Magnesium Total Bilirubin AST ALT Alkaline Phosphatase Total Protein Albumin Globulin Albumin/Globulin Ratio Venous Blood Potassium 3.7 Urine Opiates Screen Negative Urine Methadone Screen Negative Ur Barbiturates Screen Negative Phenytoin Ur Phencyclidine Scrn Negative Ur Amphetamines Screen Negative U Benzodiazepines Scrn Negative U Oth Cocaine Metabols Negative U Cannabinoids Screen Negative Alcohol, Quantitative Influenza Typ A,B (EIA) Assessment & Plan - Assessment and Plan (Free Text) Assessment: 48 yr old woman who has epilepsy and is on dilantin, subtherapeutic level. I suspect that this low level, in combination with alcohol withdrawal, led to seizure. PLan: 1. Continue dilantin at 300 mg qhs 2. Video EEg 3. MRI Brain needed. 4. ID consult. THank you Dr. figueroa
--- NOTE | 2018-09-13 15:30 | CP.CCUPN ---
CCU Subjective - Physician Review Subjective (Free Text): Events discussed with Dr. Santana: Alert when aroused, speech pattern improved, words now intelligible, no overall distressed but is tachypneic at rest with SPO2 93% on 4 LPM NC. He now admits that a seizure occurred earlier. Temp 99.0F now, SBP 110s, HR 97, RR 28 Other vitals and I/O's reviewed. ROS: No other pertinent negs or positives on 10+ system review. PMSFH: All other Nursing and physician documentation reviewed to date; no new pertinent info noted relevant to current medical problems. EXAM- HEENT: no icterus, no gaze preference, upper airway rhonchi NECK: no JVD visible, supple, carotids equal upstroke bilat/no bruit CHEST: prominent crackles R lung, decreased BS at the bases, no wheezes audible HEART: regular tachy, distant, S1S2, no rubs ABD: soft, no distension, no tympany, no guarding, no organomegaly, BS hypoactive. EXT: no mottling; no calf tenderness or palpable cords, distal pulses intact and symmetrical, no cyanosis. NEURO: no focal motor deficits SKIN: no rashes, warm and dry LABS: WBC= 7.0 HGB= 12.8 PLTs= 235K INR = 1.3 7.35/40/62 ABG Lactate= 3.0, repeated at 0624 = 2.8 Na= 140 K= 4.8 KG=130 HCO3= 23 BUN/Cr= 28/0.8 BS= 102 Trop = 1.49 BNP= 3270 UDS + opiates CXR: bilateral infiltrates: multilobar on R, retro -ardiac on left base (my interp). IMPRESSION / MAJOR PROBLEMS: 1. AMS 2. Uncontrolled / breakthrough Seizure Disorder 3. Acute resp insuff 2 Aspiration pneumonia 4. Azotemia / MI 2 Dehydration, r/o Rhabdomyolysis 5. HIV disease PLAN: 1. Check Keppra levels, resume Keppra, Trileptal. Consider LP if seizure activity recurs. 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 Trizivir can cause seizures, too. Await formal Neurology eval. 2. Empiric abx coverage for Aspiration PNA. 3. Monitor for need for assisted breathing, especially if he becomes more hypoxemic. HFNC/ BiPAP support for now if needed. Continue Duonebs, resume Singulair. Hold steroids for now unless severe bronchospasm present or as directed by Pulm. 4. Follow serial Lactates, fluid challenge, no suspicion for any severe sepsis physiology. Hypoxemia and seizure activity are etiologic factors. Follow serial CK levels, may see an increase with initial IVF hydration. EKGs non- diagnostic of any acute ischemic event. ECHO pending, trend Trop levels. Interim therapeutic LMWH started. 5. See orders.
[2018-09-13] MEDS: Enoxaparin 40 mg Syringe SC SCH (15:58)
[2018-09-13] MEDS: Fosphenytoin 100 mg/2 ml Inj IV SCH (17:25)
[2018-09-14] MEDS: Fosphenytoin 100 mg/2 ml Inj IV SCH ×3 (01:11→16:15)
[2018-09-14] MEDS: Potassium Ch 20mEq in D5-1/2NS 1,000 ML IV SCH ×2 (01:11→01:12)
[2018-09-14 05:33] LABS: BASO # 0.1 K/uL (0.0-0.2); BASO % 1.3 % (0.0-2.0); EOS # 0.1 K/uL (0.0-0.7); EOS % 3.1 % (0.0-4.0); HEMOGLOBIN 11.3 g/dL (12.0-16.0); LYMPH # 1.1 K/uL (1.0-4.3); LYMPH % 22.6 % (20.0-40.0); MEAN CELL VOLUME 97.1 fl (81.0-99.0); MEAN CORPUSCULAR HEMOGLOBIN 32.3 pg (27.0-31.0); MEAN CORPUSCULAR HGB CONC 33.2 g/dL (33.0-37.0); MEAN PLATELET VOLUME 8.1 fl (7.2-11.7); MONO # 0.4 K/uL (0.0-0.8); MONO % 7.8 % (0.0-10.0); NEUT # 3.1 K/uL (1.8-7.0); NEUT % 65.2 % (50.0-75.0); NRBC % 0.1 % (0.0-0.0); RBC 3.5 Mil/uL (3.80-5.20); RED CELL DISTRIBUTION WIDTH 15.2 % (11.5-14.5); WHITE BLOOD COUNT 4.8 K/uL (4.8-10.8)
[2018-09-14 06:13] LABS: ALT/SGPT 24 U/L (9-52); AST/SGOT 42 U/L (14-36); BLOOD UREA NITROGEN 6 mg/dl (7-17); CALCIUM 7.9 mg/dL (8.4-10.2); GFR NON-AFRICAN AMERICAN > 60
[2018-09-14] MEDS: Enoxaparin 40 mg Syringe SC SCH (09:04)
[2018-09-14] MEDS ORDERED: Multivitamin (MVI) 10 ML, Folic Acid 1 MG, Thiamine 100 MG in Dextrose 5%/0.45% NS 1,00... IV ONE (09:47)
--- NOTE | 2018-09-14 11:46 | CP.PCM.CON ---
History of Present Illness - History of Present Illness History of Present Illness: Infectious Disease Consultation Note- ASked to see this torey at the request of for fever HPI- History obtainbed from medical chart as torey does not answer most questions and seems to be lethargic and somewhat confused ( not sure if this is her baseline). per med records pt. is a 48 year old female with h/o seisure disorder and ETOH who was brought to ED from halfway for seisure Patient is known to ED staff for alcoholism and seizures. Questionable compliance with Dilantin. pt. was found to have fever on admission and hence i'm asked to evaluate. pt. is in ICU unit for seizure activity monitoring. She only had one fever on admission and has been afebrile since. Review of Systems - Review of Systems Review of Systems: ROS- unable to obtain as pt. is poor historian and lethargic and only says no to my questions Past Patient History - Past Medical History & Family History Past Medical History?: Yes - Past Social History Smoking Status: Current Some Days Smoker Home Situation {Lives}: Homeless - CARDIAC Hx Cardiac Disorders: No Hx Hypertension: No - PULMONARY Hx Respiratory Disorders: Yes Hx Pneumonia: Yes - NEUROLOGICAL Hx Neurological Disorder: Yes Hx Seizures: Yes Hx Syncope: Yes - HEENT Hx HEENT Problems: No - RENAL Hx Chronic Kidney Disease: No - ENDOCRINE/METABOLIC Hx Endocrine Disorders: No - HEMATOLOGICAL/ONCOLOGICAL Hx Blood Disorders: No - INTEGUMENTARY Hx Dermatological Problems: No - MUSCULOSKELETAL/RHEUMATOLOGICAL Hx Musculoskeletal Disorders: No Hx Falls: Yes - GASTROINTESTINAL Hx Gastrointestinal Disorders: No - GENITOURINARY/GYNECOLOGICAL Hx Sexually Transmitted Disorders: No - PSYCHIATRIC Hx Psychophysiologic Disorder: No Hx Substance Use: Yes (unable to assess) - SURGICAL HISTORY Hx Surgeries: Yes - ANESTHESIA Hx Anesthesia: Yes (unable to assess) Hx Anesthesia Reactions: (unable to assess) Hx Malignant Hyperthermia: (unable to assess) Has any member of the family had a problem w/ anesthesia?: (unable to assess) Meds Allergies/Adverse Reactions: Allergies Allergy/AdvReac Type Severity Reaction Status Date / Time No Known Allergies Allergy Verified 09/10/18 22:15 - Medications Medications: Current Medications Acetaminophen (Tylenol 325mg Tab) 650 mg PO Q6 PRN PRN Reason: Temperature Enoxaparin Sodium (Lovenox) 40 mg SC DAILY COLETTE; Protocol Last Admin: 09/14/18 09:04 Dose: 40 mg Fosphenytoin Sodium (Cerebyx) 100 mg IV Q8 COLETTE Last Admin: 09/14/18 10:01 Dose: 100 mg Multivitamins/Vitamin C 10 ml/Folic Acid 1 mg/ Thiamine HCl 100 mg/ Dextrose/Sodium Chloride 1,011.2 mls @ 75 mls/hr IV .[id number] ONE Stop: 09/14/18 23:15 Lorazepam (Ativan) 1 mg IVP Q4H PRN PRN Reason: Symptoms of alcohol withdrawl Physical Exam - Constitutional Appears: No Acute Distress, Unkempt, Agitated, Confused - Eye Exam Additional comments: right eye with swelling and some dry crusting on her right lids - Neck Exam Neck exam: Positive for: Full Rom - Respiratory Exam Respiratory Exam: NORMAL BREATHING PATTERN Additional comments: decreased breath sounds at right base - Cardiovascular Exam Cardiovascular Exam: RRR, +S1, +S2 - GI/Abdominal Exam GI & Abdominal Exam: Normal Bowel Sounds, Soft Additional comments: NT, ND - Extremities Exam Additional comments: no edema - Neurological Exam Neurological exam: Altered Results - Vital Signs Recent Vital Signs: Last Vital Signs Temp 98.7 F 09/14/18 08:00 Pulse 86 09/14/18 10:00 Resp 15 09/14/18 08:00 BP 108/67 09/14/18 10:00 Pulse Ox 98 09/14/18 10:00 - Labs Result Diagrams: 09/14/18 05:13 09/14/18 05:13 Labs: Laboratory Results - last 24 hr 09/14/18 09/14/18 09/14/18 00:46 05:13 05:13 WBC 4.8 RBC 3.50 L Hgb 11.3 L Hct 34.0 MCV 97.1 MCH 32.3 H MCHC 33.2 RDW 15.2 H Plt Count 264 MPV 8.1 Neut % (Auto) 65.2 Lymph % (Auto) 22.6 [place] % (Auto) 7.8 Eos % (Auto) 3.1 Baso % (Auto) 1.3 Neut # (Auto) 3.1 Lymph # (Auto) 1.1 [place] # (Auto) 0.4 Eos # (Auto) 0.1 Baso # (Auto) 0.1 Sodium 136 Potassium 4.8 Chloride 111 H Carbon Dioxide 19 L Anion Gap 11 BUN 6 L Creatinine 0.6 L Est GFR ( Amer) > 60 Est GFR (Non-Af Amer) > 60 POC Glucose (mg/dL) 107 Random Glucose 79 Lactic Acid Calcium 7.9 L Phosphorus 3.7 Magnesium 2.0 Total Bilirubin 0.6 AST 42 H ALT 24 Alkaline Phosphatase 37 L D Total Creatine Kinase 213 H Total Protein 6.1 L Albumin 3.0 L D Globulin 3.1 Albumin/Globulin Ratio 1.0 09/14/18 05:13 WBC RBC Hgb Hct MCV MCH MCHC RDW Plt Count MPV Neut % (Auto) Lymph % (Auto) [place] % (Auto) Eos % (Auto) Baso % (Auto) Neut # (Auto) Lymph # (Auto) [place] # (Auto) Eos # (Auto) Baso # (Auto) Sodium Potassium Chloride Carbon Dioxide Anion Gap BUN Creatinine Est GFR ( Amer) Est GFR (Non-Af Amer) POC Glucose (mg/dL) Random Glucose Lactic Acid 1.4 Calcium Phosphorus Magnesium Total Bilirubin AST ALT Alkaline Phosphatase Total Creatine Kinase Total Protein Albumin Globulin Albumin/Globulin Ratio Laboratory Results - last 72 hr 09/13/18 09/13/18 09/13/18 00:04 00:04 00:04 WBC 11.0 H RBC 3.77 L Hgb 12.0 D Hct 36.8 MCV 97.6 MCH 31.8 H MCHC 32.6 L RDW 14.8 H Plt Count 360 MPV 8.3 Neut % (Auto) 91.4 H Lymph % (Auto) 3.0 L [place] % (Auto) 4.5 Eos % (Auto) 0.8 Baso % (Auto) 0.3 Neut # (Auto) 10.1 H Lymph # (Auto) 0.3 L [place] # (Auto) 0.5 Eos # (Auto) 0.1 Baso # (Auto) 0.0 Neutrophils % (Manual) 89 H Lymphocytes % (Manual) 6 L Monocytes % (Manual) 4 Eosinophils % (Manual) 1 Platelet Estimate Normal Anisocytosis (manual) Slight pO2 VBG pH VBG pCO2 VBG HCO3 VBG Total CO2 VBG O2 Sat (Calc) VBG Base Excess VBG Potassium Glucose Lactate FiO2 Sodium 132 Potassium 4.5 Chloride 97 L Carbon Dioxide 26 Anion Gap 14 BUN 13 Creatinine 0.8 Est GFR ( Amer) > 60 Est GFR (Non-Af Amer) > 60 POC Glucose (mg/dL) Random Glucose 96 Lactic Acid Calcium 9.2 Phosphorus 3.4 Magnesium 1.7 Total Bilirubin 0.7 AST 40 H D ALT 18 Alkaline Phosphatase 66 Total Creatine Kinase Total Protein 7.8 Albumin 4.3 Globulin 3.5 Albumin/Globulin Ratio 1.3 Venous Blood Potassium Urine Opiates Screen Urine Methadone Screen Ur Barbiturates Screen Phenytoin < 3.0 L Ur Phencyclidine Scrn Ur Amphetamines Screen U Benzodiazepines Scrn U Oth Cocaine Metabols U Cannabinoids Screen Alcohol, Quantitative < 10 Influenza Typ A,B (EIA) 09/13/18 09/13/18 09/13/18 07:59 09:30 09:30 WBC 6.0 RBC 3.48 L Hgb 11.1 L Hct 34.1 MCV 97.9 MCH 31.8 H MCHC 32.5 L RDW 14.8 H Plt Count 301 MPV 7.9 Neut % (Auto) 81.9 H Lymph % (Auto) 8.2 L [place] % (Auto) 7.7 Eos % (Auto) 1.6 Baso % (Auto) 0.6 Neut # (Auto) 4.9 Lymph # (Auto) 0.5 L [place] # (Auto) 0.5 Eos # (Auto) 0.1 Baso # (Auto) 0.0 Neutrophils % (Manual) Lymphocytes % (Manual) Monocytes % (Manual) Eosinophils % (Manual) Platelet Estimate Anisocytosis (manual) pO2 VBG pH VBG pCO2 VBG HCO3 VBG Total CO2 VBG O2 Sat (Calc) VBG Base Excess VBG Potassium Glucose Lactate FiO2 Sodium 135 Potassium 3.7 Chloride 105 Carbon Dioxide 25 Anion Gap 9 L BUN 10 Creatinine 0.7 Est GFR ( Amer) > 60 Est GFR (Non-Af Amer) > 60 POC Glucose (mg/dL) Random Glucose 94 Lactic Acid Calcium 8.0 L Phosphorus Magnesium Total Bilirubin AST ALT Alkaline Phosphatase Total Creatine Kinase Total Protein Albumin Globulin Albumin/Globulin Ratio Venous Blood Potassium Urine Opiates Screen Urine Methadone Screen Ur Barbiturates Screen Phenytoin Ur Phencyclidine Scrn Ur Amphetamines Screen U Benzodiazepines Scrn U Oth Cocaine Metabols U Cannabinoids Screen Alcohol, Quantitative Influenza Typ A,B (EIA) Negative for flu a/b 09/13/18 09/13/18 09/14/18 09:30 09:54 00:46 WBC RBC Hgb Hct MCV MCH MCHC RDW Plt Count MPV Neut % (Auto) Lymph % (Auto) [place] % (Auto) Eos % (Auto) Baso % (Auto) Neut # (Auto) Lymph # (Auto) [place] # (Auto) Eos # (Auto) Baso # (Auto) Neutrophils % (Manual) Lymphocytes % (Manual) Monocytes % (Manual) Eosinophils % (Manual) Platelet Estimate Anisocytosis (manual) pO2 40 VBG pH 7.41 VBG pCO2 44 VBG HCO3 26.4 VBG Total CO2 29.3 H VBG O2 Sat (Calc) 78.8 H VBG Base Excess 2.7 H VBG Potassium 3.7 Glucose 90 Lactate 0.8 FiO2 21.0 Sodium 135.0 Potassium Chloride 106.0 Carbon Dioxide Anion Gap BUN Creatinine Est GFR ( Amer) Est GFR (Non-Af Amer) POC Glucose (mg/dL) 107 Random Glucose Lactic Acid Calcium Phosphorus Magnesium Total Bilirubin AST ALT Alkaline Phosphatase Total Creatine Kinase Total Protein Albumin Globulin Albumin/Globulin Ratio Venous Blood Potassium 3.7 Urine Opiates Screen Negative Urine Methadone Screen Negative Ur Barbiturates Screen Negative Phenytoin Ur Phencyclidine Scrn Negative Ur Amphetamines Screen Negative U Benzodiazepines Scrn Negative U Oth Cocaine Metabols Negative U Cannabinoids Screen Negative Alcohol, Quantitative Influenza Typ A,B (EIA) 09/14/18 09/14/18 09/14/18 05:13 05:13 05:13 WBC 4.8 RBC 3.50 L Hgb 11.3 L Hct 34.0 MCV 97.1 MCH 32.3 H MCHC 33.2 RDW 15.2 H Plt Count 264 MPV 8.1 Neut % (Auto) 65.2 Lymph % (Auto) 22.6 [place] % (Auto) 7.8 Eos % (Auto) 3.1 Baso % (Auto) 1.3 Neut # (Auto) 3.1 Lymph # (Auto) 1.1 [place] # (Auto) 0.4 Eos # (Auto) 0.1 Baso # (Auto) 0.1 Neutrophils % (Manual) Lymphocytes % (Manual) Monocytes % (Manual) Eosinophils % (Manual) Platelet Estimate Anisocytosis (manual) pO2 VBG pH VBG pCO2 VBG HCO3 VBG Total CO2 VBG O2 Sat (Calc) VBG Base Excess VBG Potassium Glucose Lactate FiO2 Sodium 136 Potassium 4.8 Chloride 111 H Carbon Dioxide 19 L Anion Gap 11 BUN 6 L Creatinine 0.6 L Est GFR ( Amer) > 60 Est GFR (Non-Af Amer) > 60 POC Glucose (mg/dL) Random Glucose 79 Lactic Acid 1.4 Calcium 7.9 L Phosphorus 3.7 Magnesium 2.0 Total Bilirubin 0.6 AST 42 H ALT 24 Alkaline Phosphatase 37 L D Total Creatine Kinase 213 H Total Protein 6.1 L Albumin 3.0 L D Globulin 3.1 Albumin/Globulin Ratio 1.0 Venous Blood Potassium Urine Opiates Screen Urine Methadone Screen Ur Barbiturates Screen Phenytoin Ur Phencyclidine Scrn Ur Amphetamines Screen U Benzodiazepines Scrn U Oth Cocaine Metabols U Cannabinoids Screen Alcohol, Quantitative Influenza Typ A,B (EIA) Microbiology 09/13/18 09:20 Blood-Venous Blood Culture - Preliminary NO GROWTH AFTER 24 HOURS 09/13/18 09:30 Blood-Venous Blood Culture - Preliminary NO GROWTH AFTER 24 HOURS Accession No. : [id number] Patient Name / ID : MARK GARCIA / [id number] Exam Date : 09/13/2018 09:21:51 ( Approved ) Study Comment : Sex / Age : F / 48Y Creator : Katy Parra MD Dictator : Katy Parra MD Hammer Fitter : Plant Assigner : Katy Parra MD Approver2 : Report Date : 09/13/2018 09:44:10 My Comment : Date of service: 09/13/2018 HISTORY: fever COMPARISON: 01/10/2018. FINDINGS: LUNGS: The lungs are well inflated and clear. PLEURA: No pleural effusions or pneumothorax. CARDIOVASCULAR: The heart is normal in size. No aortic atherosclerotic calcification present. OSSEOUS STRUCTURES: Within normal limits for the patient's age. VISUALIZED UPPER ABDOMEN: Normal. OTHER FINDINGS: None. IMPRESSION: No active pulmonary disease. Accession No. : [id number] Patient Name / ID : MARK GARCIA / [id number] Exam Date : 09/13/2018 08:03:55 ( Approved ) Study Comment : Sex / Age : F / 48Y Creator : Katy Parra MD Dictator : Katy Parra MD Hammer Fitter : Plant Assigner : Katy Parra MD Approver2 : Report Date : 09/13/2018 08:41:35 My Comment : Date of service: 09/13/2018 PROCEDURE: CT HEAD WITHOUT CONTRAST. HISTORY: Fall, head injury COMPARISON: 09/10/2018. TECHNIQUE: Axial computed tomography images were obtained through the head/brain without intravenous contrast. Radiation dose: Total exam DLP = 1973.37 mGy-cm. This CT exam was performed using one or more of the following dose reduction techniques: Automated exposure control, adjustment of the mA and/or kV according to patient size, and/or use of iterative reconstruction technique. FINDINGS: HEMORRHAGE: No intracranial hemorrhage. BRAIN: Johnson-white matter differentiation is preserved. There is no mass, mass effect o r abnormal extra-axial fluid collection. There is no territorial infarction. The midline sagittal structures are normal. VENTRICLES: There is moderate age advanced cerebellar volume loss and proportionate enlargement of the folia. CALVARIUM: There is no calvarial fracture. There is a small parietal soft tissue swelling. PARANASAL SINUSES: Predominantly clear. MASTOID AIR CELLS: Predominantly clear. OTHER FINDINGS: None. IMPRESSION: No acute intracranial abnormality. 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 Accession No. : [id number] Patient Name / ID : MARK GARCIA / [id number] Exam Date : 09/10/2018 23:24:21 ( Approved ) Study Comment : Sex / Age : F / 48Y Creator : Wiliam Smith MD Dictator : Wiliam Smith MD Hammer Fitter : Plant Assigner : Wiliam Smith MD Approver2 : Report Date : 09/11/2018 15:42:23 My Comment : Date of service: 09/10/2018 PROCEDURE: CT ORBITS WITHOUT CONTRAST. HISTORY: Facial injury COMPARISON: Comparison made with concurrent CT scan brain TECHNIQUE: Axial CT images of the orbits were obtained. Coronal and sagittal reformats were generated. Radiation dose: Total exam DLP = 1517.89 mGy-cm. This CT exam was performed using one or more of the following dose reduction techniques: Automated exposure control, adjustment of the mA and/or kV according to patient size, and/or use of iterative reconstruction technique. FINDINGS: Right-sided nasal bone fractures with suspected left-sided nasal bone fractures as well. There is minor overlying soft tissue swelling right greater than left... The remaining maxillofacial skeletal structures intact. Orbits and contents unremarkable however there is mild periorbital and right lateral periorbital soft tissue swelling.. Few small bubbles of air present within the subcutaneous tissues lateral aspect of the right orbit possibly secondary to a laceration. Note that this report was placed in PA review folder for follow up. OTHER: None. IMPRESSION: Fractures of the right and possibly left nasal bones. There also appears to be a nondisplaced fracture of the right zygomatic arch. Mild right-sided facial soft tissue swelling. Few small bubbles of air present within the subcutaneous tissues lateral aspect of the right orbit possibly secondary to a laceration. Note that this report was placed in PA review folder for follow up. Note that this report was placed in PA review folder for follow up. Assessment & Plan - Assessment and Plan (Free Text) Assessment: A/P- 48 ovi old female with h/o epilepsuy and alcoholism and frequent ED visit with etoh intoxication who was sent from halfway for seizure. one episode on admission was most likely secondary to seizure itself however, asp pneumonitis is a possibility as well. pt. also seesm to have right eye conjunctivitis and apparenly had recent fall and on 09/10/[address] which showed Fractures of the right and possibly left nasal bones. There also appears to be a nondisplaced fracture of the right zygomatic arch. Mild right-sided facial soft tissue swelling. plan- check blood cx. advise to place on empiric levaquin for ? asp pneumonitis. monitor aspiration precautions. ALso advise to start vanco for Right facial preorbital ?cellulits. keep vanco trough <15. advise to start antibacterial eye drops for right eye conjunctivitis. Neuro f/u for seizure management. all labs and imaging and chart notes reviewed. Thank you for allowing me to take part in the care of this patient. Critical care time spent 60 minutes.
--- NOTE | 2018-09-14 15:38 | CP.CCUPN ---
CCU Subjective - Physician Review Events Since Last Encounter (Free Text): 09/14/18 15:33 agitated with delirium when she wakes up. CCU Objective - Vital Signs / Intake & Output Vital Signs (Last 4 hours): Vital Signs Temp Pulse Resp BP Pulse Ox 09/14/18 14:00 83 20 114/70 100 09/14/18 12:00 99.8 F H 88 21 112/70 93 L Intake and Output (Last 8hrs): Intake & Output 09/14/18 09/14/18 09/14/18 06:59 14:59 22:59 Output Total 500 Balance -500 Weight 142 lb Output: Urine 500 Urine, Voided 500 - Physical Exam Physical Exam Limitations: Positive for: Altered Mental Status Head: Positive for: Atraumatic, Normocephalic Pupils: Positive for: PERRL Conjunctiva: Positive for: Injected Ears: Positive for: Normal Mouth: Positive for: Moist Mucous Membranes Pharnyx: Positive for: Normal Nose (External): Positive for: Atraumatic Respiratory/Chest: Positive for: Clear to Auscultation Cardiovascular: Positive for: Regular Rate and Rhythm Abdomen: Negative for: Tenderness, Distention Upper Extremity: Positive for: Normal Inspection Lower Extremity: Positive for: Normal Inspection Psychiatric: Positive for: Alert - Medications Active Medications: Active Medications Generic Name Dose Route Start Last Admin Trade Name Freq PRN Reason Stop Dose Admin Acetaminophen 650 mg 09/13/18 14:04 Tylenol 325mg Tab PO Q6 PRN Temperature Enoxaparin Sodium 40 mg 09/13/18 14:00 09/14/18 09:04 Lovenox SC 40 mg DAILY COLETTE Administration Protocol Fosphenytoin Sodium 100 mg 09/13/18 17:00 09/14/18 10:01 Cerebyx IV 100 mg Q8 COLETTE Administration Multivitamins/Vitamin C 10 ml/ 1,011.2 mls @ 75 mls/hr 09/14/18 09:47 09/14/18 12:23 Folic Acid 1 mg/ Thiamine HCl IV 09/14/18 23:15 75 mls/hr 100 mg/ Dextrose/Sodium .[id number] ONE Administration Chloride Lorazepam 1 mg 09/14/18 09:47 Ativan IVP Q4H PRN Symptoms of alcohol withdrawl - Patient Studies Lab Studies: Microbiology Studies 09/13/18 09:20 Blood Culture - Preliminary Blood-Venous NO GROWTH AFTER 24 HOURS 09/13/18 09:30 Blood Culture - Preliminary Blood-Venous NO GROWTH AFTER 24 HOURS Lab Studies 09/14/18 09/14/18 09/14/18 Range/Units 05:13 05:13 05:13 WBC 4.8 (4.8-10.8) K/uL RBC 3.50 L (3.80-5.20) Mil/uL Hgb 11.3 L (12.0-16.0) g/dL Hct 34.0 (34.0-47.0) % MCV 97.1 (81.0-99.0) fl MCH 32.3 H (27.0-31.0) pg MCHC 33.2 (33.0-37.0) g/dL RDW 15.2 H (11.5-14.5) % Plt Count 264 (130-400) K/uL MPV 8.1 (7.2-11.7) fl Neut % (Auto) 65.2 (50.0-75.0) % Lymph % (Auto) 22.6 (20.0-40.0) % [place] % (Auto) 7.8 (0.0-10.0) % Eos % (Auto) 3.1 (0.0-4.0) % Baso % (Auto) 1.3 (0.0-2.0) % Neut # (Auto) 3.1 (1.8-7.0) K/uL Lymph # (Auto) 1.1 (1.0-4.3) K/uL [place] # (Auto) 0.4 (0.0-0.8) K/uL Eos # (Auto) 0.1 (0.0-0.7) K/uL Baso # (Auto) 0.1 (0.0-0.2) K/uL Sodium 136 (132-148) mmol/l Potassium 4.8 (3.6-5.0) MMOL/L Chloride 111 H (98-107) mmol/L Carbon Dioxide 19 L (22-30) mmol/L Anion Gap 11 (10-20) BUN 6 L (7-17) mg/dl Creatinine 0.6 L (0.7-1.2) mg/dl Est GFR ( Amer) > 60 Est GFR (Non-Af Amer) > 60 POC Glucose (mg/dL) (65-110) mg/dL Random Glucose 79 (65-105) mg/dL Lactic Acid 1.4 (0.7-2.1) MMOL/L Calcium 7.9 L (8.4-10.2) mg/dL Phosphorus 3.7 (2.5-4.5) mg/dl Magnesium 2.0 (1.6-2.3) MG/DL Total Bilirubin 0.6 (0.2-1.3) mg/dl AST 42 H (14-36) U/L ALT 24 (9-52) U/L Alkaline Phosphatase 37 L D (38-126) U/L Total Creatine Kinase 213 H (30-135) U/L Total Protein 6.1 L (6.3-8.2) G/DL Albumin 3.0 L D (3.5-5.0) g/dL Globulin 3.1 (2.2-3.9) gm/dL Albumin/Globulin Ratio 1.0 (1.0-2.1) 09/14/18 Range/Units 00:46 WBC (4.8-10.8) K/uL RBC (3.80-5.20) Mil/uL Hgb (12.0-16.0) g/dL Hct (34.0-47.0) % MCV (81.0-99.0) fl MCH (27.0-31.0) pg MCHC (33.0-37.0) g/dL RDW (11.5-14.5) % Plt Count (130-400) K/uL MPV (7.2-11.7) fl Neut % (Auto) (50.0-75.0) % Lymph % (Auto) (20.0-40.0) % [place] % (Auto) (0.0-10.0) % Eos % (Auto) (0.0-4.0) % Baso % (Auto) (0.0-2.0) % Neut # (Auto) (1.8-7.0) K/uL Lymph # (Auto) (1.0-4.3) K/uL [place] # (Auto) (0.0-0.8) K/uL Eos # (Auto) (0.0-0.7) K/uL Baso # (Auto) (0.0-0.2) K/uL Sodium (132-148) mmol/l Potassium (3.6-5.0) MMOL/L Chloride (98-107) mmol/L Carbon Dioxide (22-30) mmol/L Anion Gap (10-20) BUN (7-17) mg/dl Creatinine (0.7-1.2) mg/dl Est GFR ( Amer) Est GFR (Non-Af Amer) POC Glucose (mg/dL) 107 (65-110) mg/dL Random Glucose (65-105) mg/dL Lactic Acid (0.7-2.1) MMOL/L Calcium (8.4-10.2) mg/dL Phosphorus (2.5-4.5) mg/dl Magnesium (1.6-2.3) MG/DL Total Bilirubin (0.2-1.3) mg/dl AST (14-36) U/L ALT (9-52) U/L Alkaline Phosphatase (38-126) U/L Total Creatine Kinase (30-135) U/L Total Protein (6.3-8.2) G/DL Albumin (3.5-5.0) g/dL Globulin (2.2-3.9) gm/dL Albumin/Globulin Ratio (1.0-2.1) Laboratory Results - last 24 hr 09/14/18 09/14/18 09/14/18 00:46 05:13 05:13 WBC 4.8 RBC 3.50 L Hgb 11.3 L Hct 34.0 MCV 97.1 MCH 32.3 H MCHC 33.2 RDW 15.2 H Plt Count 264 MPV 8.1 Neut % (Auto) 65.2 Lymph % (Auto) 22.6 [place] % (Auto) 7.8 Eos % (Auto) 3.1 Baso % (Auto) 1.3 Neut # (Auto) 3.1 Lymph # (Auto) 1.1 Mayes # (Auto) 0.4 Eos # (Auto) 0.1 Baso # (Auto) 0.1 Sodium 136 Potassium 4.8 Chloride 111 H Carbon Dioxide 19 L Anion Gap 11 BUN 6 L Creatinine 0.6 L Est GFR ( Amer) > 60 Est GFR (Non-Af Amer) > 60 POC Glucose (mg/dL) 107 Random Glucose 79 Lactic Acid Calcium 7.9 L Phosphorus 3.7 Magnesium 2.0 Total Bilirubin 0.6 AST 42 H ALT 24 Alkaline Phosphatase 37 L D Total Creatine Kinase 213 H Total Protein 6.1 L Albumin 3.0 L D Globulin 3.1 Albumin/Globulin Ratio 1.0 09/14/18 05:13 WBC RBC Hgb Hct MCV MCH MCHC RDW Plt Count MPV Neut % (Auto) Lymph % (Auto) Mayes % (Auto) Eos % (Auto) Baso % (Auto) Neut # (Auto) Lymph # (Auto) Mayes # (Auto) Eos # (Auto) Baso # (Auto) Sodium Potassium Chloride Carbon Dioxide Anion Gap BUN Creatinine Est GFR ( Amer) Est GFR (Non-Af Amer) POC Glucose (mg/dL) Random Glucose Lactic Acid 1.4 Calcium Phosphorus Magnesium Total Bilirubin AST ALT Alkaline Phosphatase Total Creatine Kinase Total Protein Albumin Globulin Albumin/Globulin Ratio Fingerstick Blood Sugar Results: 107 Review of Systems - Review of Systems Systems not reviewed;Unavailable: Altered Mental Status Assessment/Plan (1) Altered mental state Assessment and plan: 48yo F. PMHx alcohol abuse, seizures. Brought in from [facility] for seizure. Neuro: Patient is on a banana bag and CIWA protocol with prn IV ativan for seizure control. She is still combative and delirious when she wakes up. Fosphenytoin 100mg IV q8h for seizure prophylaxis. MRI Brain pending. Pulm: no acute issues, breathing spontaneously on room air CV: hemodynamically stable Hem: anemia of chronic disease Renal: no acute issues, monitoring urine output Endo: no acute issues GI: NPO ID: no acute issues DVT proph - lovenox GI proph - not currently indicated Code status - full code Critical Care Time spent 35 minutes Multi-disciplinary rounds were performed with house staff, nursing, speech therapy, respiratory therapy, pharmacy and nutrition with integrated input from the primary team/attending and other consulting services. The documented time is cumulative and includes review of patient data/exams/labs/chart review and examination of the patient on rounds and throughout the day; time is exclusive of any procedures or teaching time. Current Visit: Yes Status: Acute
--- NOTE | 2018-09-14 17:39 | CP.PCM.PN ---
Subjective - Date & Time of Evaluation Date of Evaluation: 09/14/18 Time of Evaluation: 14:30 - Subjective Subjective: Miss bobby is arouseable and a little less lethargic than yesterday. NO seizures noted. ROS; not obtainable. neuro exam: unchanged. Objective - Vital Signs/Intake and Output Vital Signs (last 24 hours): Temp Pulse Resp BP Pulse Ox 99.1 F 87 25 H 109/69 95 09/14/18 16:00 09/14/18 16:00 09/14/18 16:00 09/14/18 16:00 09/14/18 16:00 Intake and Output: 09/14/18 09/14/18 06:59 18:59 Intake Total 175 Output Total 500 Balance 175 -500 - Medications Medications: Current Medications Acetaminophen (Tylenol 325mg Tab) 650 mg PO Q6 PRN PRN Reason: Temperature Enoxaparin Sodium (Lovenox) 40 mg SC DAILY COLETTE; Protocol Last Admin: 09/14/18 09:04 Dose: 40 mg Fosphenytoin Sodium (Cerebyx) 100 mg IV Q8 COLETTE Last Admin: 09/14/18 16:15 Dose: 100 mg Multivitamins/Vitamin C 10 ml/Folic Acid 1 mg/ Thiamine HCl 100 mg/ Dextrose/Sodium Chloride 1,011.2 mls @ 75 mls/hr IV .[id number] ONE Stop: 09/14/18 23:15 Last Admin: 09/14/18 12:23 Dose: 75 mls/hr Lorazepam (Ativan) 1 mg IVP Q4H PRN PRN Reason: Symptoms of alcohol withdrawl - Labs Labs: 09/14/18 05:13 09/14/18 05:13 Assessment and Plan - Assessment and Plan (Free Text) Assessment: 48 yr old woman with seizure secondary to low dilantin level and alcohol withdrawal, now improving. PLan; 1. load with dilantin 600 mg now and continue on 300 mg qhs 2. recheck dilantin level in am. our team will follow thank you DR. [email or web address]
--- NOTE | 2018-09-14 19:07 | CP.PCM.PN ---
Subjective - Date & Time of Evaluation Date of Evaluation: 09/14/18 Time of Evaluation: 17:00 - Subjective Subjective: Seen and examined at the bed side. Continued AMS, and opens eyes with verbal stimuli. No seizure episodes. Objective - Vital Signs/Intake and Output Vital Signs (last 24 hours): Temp Pulse Resp BP Pulse Ox 99.1 F 92 H 27 H 102/63 92 L 09/14/18 16:00 09/14/18 18:00 09/14/18 18:00 09/14/18 18:00 09/14/18 18:00 Intake and Output: 09/14/18 09/15/18 18:59 06:59 Intake Total 900 Output Total 2500 Balance -1600 - Medications Medications: Current Medications Acetaminophen (Tylenol 325mg Tab) 650 mg PO Q6 PRN PRN Reason: Temperature Enoxaparin Sodium (Lovenox) 40 mg SC DAILY [facility]; Protocol Last Admin: 09/14/18 09:04 Dose: 40 mg Fosphenytoin Sodium (Cerebyx) 100 mg IV Q8 [facility] Last Admin: 09/14/18 16:15 Dose: 100 mg Multivitamins/Vitamin C 10 ml/Folic Acid 1 mg/ Thiamine HCl 100 mg/ Dextrose/Sodium Chloride 1,011.2 mls @ 75 mls/hr IV .[id number] ONE Stop: 09/14/18 23:15 Last Admin: 09/14/18 12:23 Dose: 75 mls/hr Levofloxacin/Dextrose (Levaquin 500mg) 500 mg in 100 mls @ 100 mls/hr IVPB DAILY [facility]; Protocol Vancomycin HCl 1 gm/ Sodium (Chloride) 250 mls @ 166.667 mls/hr IVPB DAILY [facility]; Protocol Lorazepam (Ativan) 1 mg IVP Q4H PRN PRN Reason: Symptoms of alcohol withdrawl Neomycin/Polymyxin/Gramicidin (Neosporin Opht Susan) 1 drop OD Q6 [facility] - Labs Labs: 09/14/18 05:13 09/14/18 05:13 Assessment and Plan (1) Altered mental state Status: Acute (2) Fever Status: Acute (3) Witnessed seizure Status: Acute - Assessment and Plan (Free Text) Plan: Continue to Work IVF Phenytoin IV Continue to Monitor
--- NOTE | 2018-09-14 19:07 | CP.PCM.HP ---
History of Present Illness - History of Present Illness History of Present Illness: CC: AMS History of Present Illness: Unable to get History from patient, and History from Medical Record: A 48 F with H/O chronic alcoholic, Seizure, pneumonia, & Homeless arrived in disheveled and unkempt appearance with dried urine and feces on clothes. Admitted for recurrent witnessed seizure activity, associated with Hypotension, low grade fever to 100.7F and AMS. She did receive multiple doses of Ativan for sedation LP attempted but unable despite ativan use. Fluid challenge administered up to 3 liter volume for Hypotension. Currently poorly arousable and nonverbal, becoming agitated and uncooperative when stimulated and repositioned in bed. CT Head w/O Contrast showed no acute finding. Present on Admission - Present on Admission Any Indicators Present on Admission: No Past Patient History - Past Medical History & Family History Past Medical History?: Yes - Past Social History Smoking Status: Current Some Days Smoker Alcohol: > 2 Drinks/Day Home Situation {Lives}: Homeless - CARDIAC Hx Cardiac Disorders: No Hx Hypertension: No - PULMONARY Hx Respiratory Disorders: Yes Hx Pneumonia: Yes - NEUROLOGICAL Hx Neurological Disorder: Yes Hx Seizures: Yes Hx Syncope: Yes - HEENT Hx HEENT Problems: No - RENAL Hx Chronic Kidney Disease: No - ENDOCRINE/METABOLIC Hx Endocrine Disorders: No - HEMATOLOGICAL/ONCOLOGICAL Hx Blood Disorders: No - INTEGUMENTARY Hx Dermatological Problems: No - MUSCULOSKELETAL/RHEUMATOLOGICAL Hx Musculoskeletal Disorders: No Hx Falls: Yes - GASTROINTESTINAL Hx Gastrointestinal Disorders: No - GENITOURINARY/GYNECOLOGICAL Hx Sexually Transmitted Disorders: No - PSYCHIATRIC Hx Psychophysiologic Disorder: No Hx Substance Use: Yes (unable to assess) - SURGICAL HISTORY Hx Surgeries: Yes - ANESTHESIA Hx Anesthesia: Yes (unable to assess) Hx Anesthesia Reactions: (unable to assess) Hx Malignant Hyperthermia: (unable to assess) Has any member of the family had a problem w/ anesthesia?: (unable to assess) Meds Allergies/Adverse Reactions: Allergies Allergy/AdvReac Type Severity Reaction Status Date / Time No Known Allergies Allergy Verified 09/10/18 22:15 Physical Exam - Constitutional Appears: No Acute Distress, Chronically Ill - Head Exam Head Exam: ATRAUMATIC, NORMAL INSPECTION, NORMOCEPHALIC - Eye Exam Eye Exam: EOMI, Normal appearance, PERRL Pupil Exam: NORMAL ACCOMODATION, PERRL - ENT Exam ENT Exam: Mucous Membranes Moist, Normal Exam - Neck Exam Neck exam: Positive for: Normal Inspection - Respiratory Exam Respiratory Exam: Clear to Auscultation Bilateral, NORMAL BREATHING PATTERN - Cardiovascular Exam Cardiovascular Exam: REGULAR RHYTHM, +S1, +S2 - GI/Abdominal Exam GI & Abdominal Exam: Normal Bowel Sounds, Soft. absent: Tenderness - Exam Bimanual exam: NORMAL BIMANUAL EXAM - Extremities Exam Extremities exam: Positive for: normal inspection - Back Exam Back exam: NORMAL INSPECTION - Neurological Exam Neurological exam: Altered Additional comments: Arousable - Psychiatric Exam Psychiatric exam: Normal Affect, Normal Mood - Skin Skin Exam: Dry, Intact, Normal Color, Warm Results - Vital Signs Recent Vital Signs: Last Vital Signs Temp 99.1 F 09/14/18 16:00 Pulse 92 H 09/14/18 18:00 Resp 27 H 09/14/18 18:00 BP 102/63 09/14/18 18:00 Pulse Ox 92 L 09/14/18 18:00 - Labs Result Diagrams: 09/15/18 06:28 09/15/18 06:28 Labs: Laboratory Results - last 24 hr 09/14/18 09/14/18 09/14/18 00:46 05:13 05:13 WBC 4.8 RBC 3.50 L Hgb 11.3 L Hct 34.0 MCV 97.1 MCH 32.3 H MCHC 33.2 RDW 15.2 H Plt Count 264 MPV 8.1 Neut % (Auto) 65.2 Lymph % (Auto) 22.6 Cherry % (Auto) 7.8 Eos % (Auto) 3.1 Baso % (Auto) 1.3 Neut # (Auto) 3.1 Lymph # (Auto) 1.1 Cherry # (Auto) 0.4 Eos # (Auto) 0.1 Baso # (Auto) 0.1 Sodium 136 Potassium 4.8 Chloride 111 H Carbon Dioxide 19 L Anion Gap 11 BUN 6 L Creatinine 0.6 L Est GFR ( Amer) > 60 Est GFR (Non-Af Amer) > 60 POC Glucose (mg/dL) 107 Random Glucose 79 Lactic Acid Calcium 7.9 L Phosphorus 3.7 Magnesium 2.0 Total Bilirubin 0.6 AST 42 H ALT 24 Alkaline Phosphatase 37 L D Total Creatine Kinase 213 H Total Protein 6.1 L Albumin 3.0 L D Globulin 3.1 Albumin/Globulin Ratio 1.0 09/14/18 05:13 WBC RBC Hgb Hct MCV MCH MCHC RDW Plt Count MPV Neut % (Auto) Lymph % (Auto) Cherry % (Auto) Eos % (Auto) Baso % (Auto) Neut # (Auto) Lymph # (Auto) Cherry # (Auto) Eos # (Auto) Baso # (Auto) Sodium Potassium Chloride Carbon Dioxide Anion Gap BUN Creatinine Est GFR ( Amer) Est GFR (Non-Af Amer) POC Glucose (mg/dL) Random Glucose Lactic Acid 1.4 Calcium Phosphorus Magnesium Total Bilirubin AST ALT Alkaline Phosphatase Total Creatine Kinase Total Protein Albumin Globulin Albumin/Globulin Ratio - Imaging and Cardiology CT scan - head Status: Report reviewed by me Additional comment: Date of service: 09/13/2018 PROCEDURE: CT HEAD WITHOUT CONTRAST. HISTORY: Fall, head injury COMPARISON: 09/10/2018. TECHNIQUE: Axial computed tomography images were obtained through the head/brain without intravenous contrast. Radiation dose: Total exam DLP = 1973.37 mGy-cm. This CT exam was performed using one or more of the following dose reduction techniques: Automated exposure control, adjustment of the mA and/or kV according to patient size, and/or use of iterative reconstruction technique. FINDINGS: HEMORRHAGE: No intracranial hemorrhage. BRAIN: Johnson-white matter differentiation is preserved. There is no mass, mass effect or abnormal extra-axial fluid collection. There is no territorial infarction. The midline sagittal structures are normal. VENTRICLES: There is moderate age advanced cerebellar volume loss and proportionate enlargement of the folia. CALVARIUM: There is no calvarial fracture. There is a small parietal soft tissue swelling. PARANASAL SINUSES: Predominantly clear. MASTOID AIR CELLS: Predominantly clear. OTHER FINDINGS: None. IMPRESSION: No acute intracranial abnormality. 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 Assessment & Plan (1) Altered mental state Status: Acute Priority: High (2) Witnessed seizure Assessment and Plan: R/o Meningitis VS CVA Status: Acute Priority: High (3) Fever Status: Acute Priority: High - Assessment and Plan (Free Text) Plan: IVF IV Phosphenytoin IV Levaquin and Vancomycin Monitor Electrolytes Blood Culture MRI Brain or Repeat CT Head Monitor in ICU
[2018-09-14] MEDS: NEOSPORIN OD SCH (22:01)
[2018-09-15] MEDS: Fosphenytoin 100 mg/2 ml Inj IV SCH ×3 (01:35→16:37)
[2018-09-15] MEDS: NEOSPORIN OD SCH ×4 (03:34→22:35)
[2018-09-15] MEDS ORDERED: Dextrose 50% SYRINGE Inj (50 ml) IVP ONE ×2 (04:10→04:19)
[2018-09-15 06:58] LABS: BASO # 0.1 K/uL (0.0-0.2); BASO % 0.7 % (0.0-2.0); EOS # 0.2 K/uL (0.0-0.7); EOS % 2.4 % (0.0-4.0); HEMOGLOBIN 11.6 g/dL (12.0-16.0); LYMPH # 0.9 K/uL (1.0-4.3); LYMPH % 12.6 % (20.0-40.0); MEAN CELL VOLUME 96.6 fl (81.0-99.0); MEAN CORPUSCULAR HEMOGLOBIN 31.7 pg (27.0-31.0); MEAN CORPUSCULAR HGB CONC 32.8 g/dL (33.0-37.0); MEAN PLATELET VOLUME 7.8 fl (7.2-11.7); MONO # 0.5 K/uL (0.0-0.8); MONO % 6.8 % (0.0-10.0); NEUT # 5.6 K/uL (1.8-7.0); NEUT % 77.5 % (50.0-75.0); RBC 3.65 Mil/uL (3.80-5.20); RED CELL DISTRIBUTION WIDTH 15.2 % (11.5-14.5); WHITE BLOOD COUNT 7.2 K/uL (4.8-10.8)
--- NOTE | 2018-09-15 07:12 | CP.CCUPN ---
<Cheryl Kemp - Last Filed: 09/15/18 12:03> CCU Subjective - Physician Review Events Since Last Encounter (Free Text): 48 YO female with ETOH abuse was admitted after seizure episode in retirement. No acute overnight events, since admission to the ICU, pt had not had any seizure-like episode. Neurology on board, low Dilantin level, was started on med per Neuro Pt is seen and examined by bedside this AM, no acute overnight events Pt is noted to be sleeping, looks comfortable. Awake and alert. Following some commands, but remains sleepy. CCU Objective - Vital Signs / Intake & Output Vital Signs (Last 4 hours): Vital Signs Temp Pulse Resp BP Pulse Ox 09/15/18 06:00 88 25 H 104/64 95 09/15/18 04:00 98.8 F 75 21 101/60 98 Intake and Output (Last 8hrs): Intake & Output 09/14/18 09/15/18 09/15/18 22:59 06:59 14:59 Intake Total 900 900 Output Total 2000 800 Balance -1100 100 Weight 61.965 kg Intake: IV 850 900 Intake, Piggyback 50 Output: Urine 2000 800 Urine, Voided 2000 800 Other: # Bowel Movements 0 - Physical Exam Head: Positive for: Atraumatic, Normocephalic, Other (swelling noted in the R eye, small lac noted in the R eyebrow) Pupils: Positive for: PERRL Conjunctiva: Positive for: Other (crusting noted on eye b/l, no conjunctiva ) Mouth: Positive for: Moist Mucous Membranes Pharnyx: Positive for: Normal Nose (External): Positive for: Atraumatic Respiratory/Chest: Positive for: Clear to Auscultation Cardiovascular: Positive for: Regular Rate and Rhythm Abdomen: Negative for: Tenderness, Distention Upper Extremity: Positive for: Normal Inspection Lower Extremity: Positive for: Normal Inspection Neurological: Positive for: GCS=15 Psychiatric: Positive for: Alert - Medications Active Medications: Active Medications Generic Name Dose Route Start Last Admin Trade Name Freq PRN Reason Stop Dose Admin Acetaminophen 650 mg 09/13/18 14:04 Tylenol 325mg Tab PO Q6 PRN Temperature Enoxaparin Sodium 40 mg 09/13/18 14:00 09/14/18 09:04 Lovenox SC 40 mg DAILY [facility] Administration Protocol Fosphenytoin Sodium 100 mg 09/13/18 17:00 09/15/18 01:35 Cerebyx IV 100 mg Q8 [facility] Administration Levofloxacin/Dextrose 500 mg in 100 mls @ 100 mls/hr 09/15/18 09:00 Levaquin 500mg IVPB DAILY [facility] Protocol Vancomycin HCl 1 gm/ Sodium 250 mls @ 166.667 mls/hr 09/15/18 09:00 Chloride IVPB DAILY [facility] Protocol Lorazepam 1 mg 09/14/18 09:47 09/15/18 00:10 Ativan IVP 1 mg Q4H PRN Administration Symptoms of alcohol withdrawl Neomycin/Polymyxin/Gramicidin 1 drop 09/14/18 22:00 09/15/18 03:34 Neosporin Opht Susan OD 1 drop Q6 [facility] Administration - Patient Studies Lab Studies: Microbiology Studies 09/13/18 09:20 Blood Culture - Preliminary Blood-Venous NO GROWTH AFTER 24 HOURS 09/13/18 09:30 Blood Culture - Preliminary Blood-Venous NO GROWTH AFTER 24 HOURS Fingerstick Blood Sugar Results: 111 Critical Care Progress Note - Nutrition Nutrition: Nutrition Category Date Time Status NPO Diet [DIET] Diets 09/15/18 Breakfast Active Assessment/Plan - Assessment and Plan (Free Text) Assessment: A/P: 48 YO Female with Hx of ETOH abuse is admitted for seizures, fever and ETOH abuse. AMS/Seizure -likely 2/2 to medicine non-compliance and ETOH abuse -Dilantin level <3, ETOH 165 (09/10) -CT head no acute findings -Neurology on board; c/w with meds as per neuro -will consider advancing diet if pt is more awake -cont NPO for now Fever of unknown origin -likely 2/2 to seizures -Infectious etiology less likely given WBC and resolution of the fever -CXR neg on admission -Bcx neg thus far -ID on board -c/w with abx as per recs, consider switching levofloxacin given fluoroquinolones lower seizure threshold -will repeat CXR today -consider d/c abx Rhabdomyolysis -likely 2/2 to seizure -TCK 213 -c/w IVFs ETOH abuse -chronic -cont to monitor for withdrawal symptoms -CIWA protocol -Ativan PRN DVT -Lovenox SC <Nima Dockery - Last Filed: 09/15/18 12:23> CCU Subjective - Physician Review Subjective (Free Text): Attestation: Patient seen and examined at the bedside with Resident Dr. Irene Kemp, and I agree with her outline of plans and management documented above, reflecting my review of all applicable clinical data and participation in the care of the patient throughout the day in ICU; today, September 15, 2018.
[2018-09-15 07:53] LABS: ALBUMIN 3.2 g/dL (3.5-5.0); ALT/SGPT 32 U/L (9-52); AST/SGOT 23 U/L (14-36); BLOOD UREA NITROGEN 4 mg/dl (7-17); CALCIUM 8.3 mg/dL (8.4-10.2); GFR NON-AFRICAN AMERICAN > 60
[2018-09-15] MEDS: Enoxaparin 40 mg Syringe SC SCH (08:28)
[2018-09-15] MEDS: levoFLOXacin 500 mg in D5W 500 MG/100 ML BAG IVPB SCH (09:15)
[2018-09-15] MEDS: Potassium Ch 20mEq in D5-1/2NS 1,000 ML IV SCH ×2 (10:22→23:28)
--- NOTE | 2018-09-15 11:38 | CP.PCM.PN ---
<Rose Clarke - Last Filed: 09/15/18 13:27> Subjective - Date & Time of Evaluation Date of Evaluation: 09/15/18 Time of Evaluation: 11:38 - Subjective Subjective: Neurology Follow-Up Note: Mrs. Riggins was evaluated this morning in the ICU. No acute overnight events. ROS limited as pt is lethargic. Does not follow all commands. Objective - Vital Signs/Intake and Output Vital Signs (last 24 hours): Temp Pulse Resp BP Pulse Ox 97.4 F L 82 17 100/64 94 L 09/15/18 08:00 09/15/18 10:00 09/15/18 10:00 09/15/18 10:00 09/15/18 10:00 Intake and Output: 09/15/18 09/15/18 06:59 18:59 Intake Total 900 100 Output Total 800 Balance 100 100 - Medications Medications: Current Medications Acetaminophen (Tylenol 325mg Tab) 650 mg PO Q6 PRN PRN Reason: Temperature Enoxaparin Sodium (Lovenox) 40 mg SC DAILY [facility]; Protocol Last Admin: 09/15/18 08:28 Dose: 40 mg Fosphenytoin Sodium (Cerebyx) 100 mg IV Q8 [facility] Last Admin: 09/15/18 08:28 Dose: 100 mg Levofloxacin/Dextrose (Levaquin 500mg) 500 mg in 100 mls @ 100 mls/hr IVPB DAILY [facility]; Protocol Last Admin: 09/15/18 09:15 Dose: 100 mls/hr Vancomycin HCl 1 gm/ Sodium (Chloride) 250 mls @ 166.667 mls/hr IVPB DAILY [facility]; Protocol Last Admin: 09/15/18 10:19 Dose: 166.667 mls/hr Potassium Chloride/Dextrose/Sod Cl (Potassium Chl 20 Meq In D5-1/2ns) 1,000 mls @ 110 mls/hr IV .Q9H6M [facility] Stop: 09/16/18 09:37 Last Admin: 09/15/18 10:22 Dose: 110 mls/hr Lorazepam (Ativan) 1 mg IVP Q4H PRN PRN Reason: Symptoms of alcohol withdrawl Last Admin: 09/15/18 00:10 Dose: 1 mg Neomycin/Polymyxin/Gramicidin (Neosporin Opht Susan) 1 drop OD Q6 [facility] Last Admin: 09/15/18 10:20 Dose: 1 drop - Labs Labs: 09/15/18 06:28 09/15/18 06:28 - Constitutional Appears: No Acute Distress, Other (unkempt) - Head Exam Head Exam: NORMOCEPHALIC - Eye Exam Eye Exam: PERRL Pupil Exam: PERRL Additional comments: follows commands to open eyes - ENT Exam ENT Exam: Mucous Membranes Moist - Neck Exam Neck Exam: Normal Inspection - Respiratory Exam Respiratory Exam: NORMAL BREATHING PATTERN - Cardiovascular Exam Cardiovascular Exam: REGULAR RHYTHM - Extremities Exam Extremities Exam: absent: Calf Tenderness, Full ROM, Pedal Edema Additional comments: cannot follow commands to test strength to BLE - Neurological Exam Neurological Exam: Altered, Reflexes Normal. absent: Alert, Awake, Oriented x3 Additional comments: strength, fine motor, sensation could not be assessed 2/2 pt unable to follows commands no tremors noted, no clonus; toes downgoing reflexes brisk - Psychiatric Exam Additional comments: lethargic - Skin Skin Exam: Normal Color Assessment and Plan (1) Seizure disorder Assessment & Plan: Imaging reviewed: -CT Head (09/13/18): No acute intracranial abnormality. 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 Mrs. Riggins is admitted for a witnessed seizure that is likely 2/2 a subtherapeutic Phenytoin level and ETOH withdrawal. She remains lethargic today. -VEEG x24 hours re-ordered; was originally ordered on 09/13 however it was cancelled in [facility]. -MRI Brain as soon as pt can tolerate the exam. -Continue seizure precautions. -Pending Phenytoin level that was ordered/drawn 09/14. -Currently on Fosphenytoin 100mg IV Q8 hours--continue for now. -Notify neuro team of acute changes in pt's condition. Case discussed with Dr. Figueroa. Status: Acute <Flora Figueroa - Last Filed: 09/19/18 13:46> Objective - Vital Signs/Intake and Output Vital Signs (last 24 hours): Temp Pulse Resp BP Pulse Ox 97.6 F 74 18 96/57 L 97 09/19/18 09:34 09/19/18 09:34 09/19/18 09:34 09/19/18 09:34 09/19/18 09:34 - Medications Medications: Current Medications Acetaminophen (Tylenol 325mg Tab) 650 mg PO Q6 PRN PRN Reason: Temperature Enoxaparin Sodium (Lovenox) 40 mg SC DAILY [facility]; Protocol Last Admin: 09/19/18 08:40 Dose: 40 mg Folic Acid (Folic Acid) 1 mg PO DAILY [facility] Last Admin: 09/19/18 08:40 Dose: 1 mg Haloperidol Lactate (Haldol) 2 mg IM Q6 PRN PRN Reason: Agitation Last Admin: 09/18/18 17:57 Dose: 2 mg Lorazepam (Ativan) 1 mg IVP Q4H PRN PRN Reason: Symptoms of alcohol withdrawl Last Admin: 09/18/18 15:53 Dose: 1 mg Phenytoin Sodium (Dilantin) 400 mg PO HS [facility] Last Admin: 09/18/18 21:43 Dose: 400 mg Thiamine HCl (Vitamin B1 Tab) 100 mg PO DAILY [facility] Last Admin: 09/19/18 08:40 Dose: 100 mg - Labs Labs: 09/17/18 04:31 09/17/18 04:31 Assessment and Plan - Assessment and Plan (Free Text) Assessment: I examined the patient independently and agree with the assessment and plan. Dr. figueroa
--- NOTE | 2018-09-15 13:48 | CP.PCM.PN ---
Subjective - Date & Time of Evaluation Date of Evaluation: 09/15/18 Time of Evaluation: 13:47 - Subjective Subjective: ID note- Pt. seen and examined today in ICU. pt. is less agitated today. he right preorbital redness and swelling is much less today. Objective - Vital Signs/Intake and Output Vital Signs (last 24 hours): Temp Pulse Resp BP Pulse Ox 98.5 F 80 26 H 101/59 L 94 L 09/15/18 12:00 09/15/18 12:00 09/15/18 12:00 09/15/18 12:00 09/15/18 12:00 Intake and Output: 09/15/18 09/15/18 06:59 18:59 Intake Total 900 100 Output Total 800 Balance 100 100 - Medications Medications: Current Medications Acetaminophen (Tylenol 325mg Tab) 650 mg PO Q6 PRN PRN Reason: Temperature Enoxaparin Sodium (Lovenox) 40 mg SC DAILY COLETTE; Protocol Last Admin: 09/15/18 08:28 Dose: 40 mg Fosphenytoin Sodium (Cerebyx) 100 mg IV Q8 COLETTE Last Admin: 09/15/18 08:28 Dose: 100 mg Levofloxacin/Dextrose (Levaquin 500mg) 500 mg in 100 mls @ 100 mls/hr IVPB DAILY COLETTE; Protocol Last Admin: 09/15/18 09:15 Dose: 100 mls/hr Vancomycin HCl 1 gm/ Sodium (Chloride) 250 mls @ 166.667 mls/hr IVPB DAILY COLETTE; Protocol Last Admin: 09/15/18 10:19 Dose: 166.667 mls/hr Potassium Chloride/Dextrose/Sod Cl (Potassium Chl 20 Meq In D5-1/2ns) 1,000 mls @ 110 mls/hr IV .Q9H6M COLETTE Stop: 09/16/18 09:37 Last Admin: 09/15/18 10:22 Dose: 110 mls/hr Lorazepam (Ativan) 1 mg IVP Q4H PRN PRN Reason: Symptoms of alcohol withdrawl Last Admin: 09/15/18 00:10 Dose: 1 mg Neomycin/Polymyxin/Gramicidin (Neosporin Opht Susan) 1 drop OD Q6 COLETTE Last Admin: 09/15/18 10:20 Dose: 1 drop - Labs Labs: - Additional Findings Additional findings: - Constitutional Appears: No Acute Distress, Unkempt, less agitated - Eye Exam Additional comments: right perirobital swelling and erythema is much reduced today - Neck Exam Neck exam: Positive for: Full Rom - Respiratory Exam Respiratory Exam: NORMAL BREATHING PATTERN Additional comments: - Cardiovascular Exam Cardiovascular Exam: RRR, +S1, +S2 - GI/Abdominal Exam GI & Abdominal Exam: Normal Bowel Sounds, Soft Additional comments: NT, ND - Extremities Exam Additional comments: no edema - Neurological Exam Neurological exam: less agitated Laboratory Results - last 72 hr 09/13/18 09/13/18 09/13/18 00:04 00:04 00:04 WBC 11.0 H RBC 3.77 L Hgb 12.0 D Hct 36.8 MCV 97.6 MCH 31.8 H MCHC 32.6 L RDW 14.8 H Plt Count 360 MPV 8.3 Neut % (Auto) 91.4 H Lymph % (Auto) 3.0 L [place] % (Auto) 4.5 Eos % (Auto) 0.8 Baso % (Auto) 0.3 Neut # (Auto) 10.1 H Lymph # (Auto) 0.3 L [place] # (Auto) 0.5 Eos # (Auto) 0.1 Baso # (Auto) 0.0 Neutrophils % (Manual) 89 H Lymphocytes % (Manual) 6 L Monocytes % (Manual) 4 Eosinophils % (Manual) 1 Platelet Estimate Normal Anisocytosis (manual) Slight pO2 VBG pH VBG pCO2 VBG HCO3 VBG Total CO2 VBG O2 Sat (Calc) VBG Base Excess VBG Potassium Glucose Lactate FiO2 Sodium 132 Potassium 4.5 Chloride 97 L Carbon Dioxide 26 Anion Gap 14 BUN 13 Creatinine 0.8 Est GFR ( Amer) > 60 Est GFR (Non-Af Amer) > 60 POC Glucose (mg/dL) Random Glucose 96 Lactic Acid Calcium 9.2 Phosphorus 3.4 Magnesium 1.7 Total Bilirubin 0.7 AST 40 H D ALT 18 Alkaline Phosphatase 66 Total Creatine Kinase Total Protein 7.8 Albumin 4.3 Globulin 3.5 Albumin/Globulin Ratio 1.3 Venous Blood Potassium Urine Opiates Screen Urine Methadone Screen Ur Barbiturates Screen Phenytoin < 3.0 L Ur Phencyclidine Scrn Ur Amphetamines Screen U Benzodiazepines Scrn U Oth Cocaine Metabols U Cannabinoids Screen Alcohol, Quantitative < 10 Influenza Typ A,B (EIA) 09/13/18 09/13/18 09/13/18 07:59 09:30 09:30 WBC 6.0 RBC 3.48 L Hgb 11.1 L Hct 34.1 MCV 97.9 MCH 31.8 H MCHC 32.5 L RDW 14.8 H Plt Count 301 MPV 7.9 Neut % (Auto) 81.9 H Lymph % (Auto) 8.2 L [place] % (Auto) 7.7 Eos % (Auto) 1.6 Baso % (Auto) 0.6 Neut # (Auto) 4.9 Lymph # (Auto) 0.5 L [place] # (Auto) 0.5 Eos # (Auto) 0.1 Baso # (Auto) 0.0 Neutrophils % (Manual) Lymphocytes % (Manual) Monocytes % (Manual) Eosinophils % (Manual) Platelet Estimate Anisocytosis (manual) pO2 VBG pH VBG pCO2 VBG HCO3 VBG Total CO2 VBG O2 Sat (Calc) VBG Base Excess VBG Potassium Glucose Lactate FiO2 Sodium 135 Potassium 3.7 Chloride 105 Carbon Dioxide 25 Anion Gap 9 L BUN 10 Creatinine 0.7 Est GFR ( Amer) > 60 Est GFR (Non-Af Amer) > 60 POC Glucose (mg/dL) Random Glucose 94 Lactic Acid Calcium 8.0 L Phosphorus Magnesium Total Bilirubin AST ALT Alkaline Phosphatase Total Creatine Kinase Total Protein Albumin Globulin Albumin/Globulin Ratio Venous Blood Potassium Urine Opiates Screen Urine Methadone Screen Ur Barbiturates Screen Phenytoin Ur Phencyclidine Scrn Ur Amphetamines Screen U Benzodiazepines Scrn U Oth Cocaine Metabols U Cannabinoids Screen Alcohol, Quantitative Influenza Typ A,B (EIA) Negative for flu a/b 09/13/18 09/13/18 09/14/18 09:30 09:54 00:46 WBC RBC Hgb Hct MCV MCH MCHC RDW Plt Count MPV Neut % (Auto) Lymph % (Auto) [place] % (Auto) Eos % (Auto) Baso % (Auto) Neut # (Auto) Lymph # (Auto) [place] # (Auto) Eos # (Auto) Baso # (Auto) Neutrophils % (Manual) Lymphocytes % (Manual) Monocytes % (Manual) Eosinophils % (Manual) Platelet Estimate Anisocytosis (manual) pO2 40 VBG pH 7.41 VBG pCO2 44 VBG HCO3 26.4 VBG Total CO2 29.3 H VBG O2 Sat (Calc) 78.8 H VBG Base Excess 2.7 H VBG Potassium 3.7 Glucose 90 Lactate 0.8 FiO2 21.0 Sodium 135.0 Potassium Chloride 106.0 Carbon Dioxide Anion Gap BUN Creatinine Est GFR ( Amer) Est GFR (Non-Af Amer) POC Glucose (mg/dL) 107 Random Glucose Lactic Acid Calcium Phosphorus Magnesium Total Bilirubin AST ALT Alkaline Phosphatase Total Creatine Kinase Total Protein Albumin Globulin Albumin/Globulin Ratio Venous Blood Potassium 3.7 Urine Opiates Screen Negative Urine Methadone Screen Negative Ur Barbiturates Screen Negative Phenytoin Ur Phencyclidine Scrn Negative Ur Amphetamines Screen Negative U Benzodiazepines Scrn Negative U Oth Cocaine Metabols Negative U Cannabinoids Screen Negative Alcohol, Quantitative Influenza Typ A,B (EIA) 09/14/18 09/14/18 09/14/18 05:13 05:13 05:13 WBC 4.8 RBC 3.50 L Hgb 11.3 L Hct 34.0 MCV 97.1 MCH 32.3 H MCHC 33.2 RDW 15.2 H Plt Count 264 MPV 8.1 Neut % (Auto) 65.2 Lymph % (Auto) 22.6 [place] % (Auto) 7.8 Eos % (Auto) 3.1 Baso % (Auto) 1.3 Neut # (Auto) 3.1 Lymph # (Auto) 1.1 [place] # (Auto) 0.4 Eos # (Auto) 0.1 Baso # (Auto) 0.1 Neutrophils % (Manual) Lymphocytes % (Manual) Monocytes % (Manual) Eosinophils % (Manual) Platelet Estimate Anisocytosis (manual) pO2 VBG pH VBG pCO2 VBG HCO3 VBG Total CO2 VBG O2 Sat (Calc) VBG Base Excess VBG Potassium Glucose Lactate FiO2 Sodium 136 Potassium 4.8 Chloride 111 H Carbon Dioxide 19 L Anion Gap 11 BUN 6 L Creatinine 0.6 L Est GFR ( Amer) > 60 Est GFR (Non-Af Amer) > 60 POC Glucose (mg/dL) Random Glucose 79 Lactic Acid 1.4 Calcium 7.9 L Phosphorus 3.7 Magnesium 2.0 Total Bilirubin 0.6 AST 42 H ALT 24 Alkaline Phosphatase 37 L D Total Creatine Kinase 213 H Total Protein 6.1 L Albumin 3.0 L D Globulin 3.1 Albumin/Globulin Ratio 1.0 Venous Blood Potassium Urine Opiates Screen Urine Methadone Screen Ur Barbiturates Screen Phenytoin Ur Phencyclidine Scrn Ur Amphetamines Screen U Benzodiazepines Scrn U Oth Cocaine Metabols U Cannabinoids Screen Alcohol, Quantitative Influenza Typ A,B (EIA) 09/15/18 09/15/18 09/15/18 04:07 06:28 06:28 WBC 7.2 RBC 3.65 L Hgb 11.6 L Hct 35.3 MCV 96.6 MCH 31.7 H MCHC 32.8 L RDW 15.2 H Plt Count 278 MPV 7.8 Neut % (Auto) 77.5 H Lymph % (Auto) 12.6 L [place] % (Auto) 6.8 Eos % (Auto) 2.4 Baso % (Auto) 0.7 Neut # (Auto) 5.6 Lymph # (Auto) 0.9 L [place] # (Auto) 0.5 Eos # (Auto) 0.2 Baso # (Auto) 0.1 Neutrophils % (Manual) Lymphocytes % (Manual) Monocytes % (Manual) Eosinophils % (Manual) Platelet Estimate Anisocytosis (manual) pO2 VBG pH VBG pCO2 VBG HCO3 VBG Total CO2 VBG O2 Sat (Calc) VBG Base Excess VBG Potassium Glucose Lactate FiO2 Sodium 139 Potassium 3.6 Chloride 106 Carbon Dioxide 25 Anion Gap 12 BUN 4 L Creatinine 0.6 L Est GFR ( Amer) > 60 Est GFR (Non-Af Amer) > 60 POC Glucose (mg/dL) 78 Random Glucose 110 H Lactic Acid Calcium 8.3 L Phosphorus Magnesium Total Bilirubin 0.3 AST 23 ALT 32 Alkaline Phosphatase 49 Total Creatine Kinase Total Protein 6.2 L Albumin 3.2 L Globulin 3.0 Albumin/Globulin Ratio 1.0 Venous Blood Potassium Urine Opiates Screen Urine Methadone Screen Ur Barbiturates Screen Phenytoin Ur Phencyclidine Scrn Ur Amphetamines Screen U Benzodiazepines Scrn U Oth Cocaine Metabols U Cannabinoids Screen Alcohol, Quantitative Influenza Typ A,B (EIA) Microbiology 09/13/18 08:04 Nose MRSA Culture (Admit) - Final MRSA NOT DETECTED 09/13/18 09:20 Blood-Venous Blood Culture - Preliminary NO GROWTH AFTER 48 HOURS 09/13/18 09:30 Blood-Venous Blood Culture - Preliminary NO GROWTH AFTER 48 HOURS Assessment and Plan (1) Altered mental state Status: Acute (2) Witnessed seizure Status: Acute (3) Alcohol use disorder Status: Acute - Assessment and Plan (Free Text) Assessment: A/P- 48 ovi old female with h/o epilepsuy and alcoholism and frequent ED visit with etoh intoxication who was sent from detention for seizure. has remained afebrile normal wbc count blood cx- neg x 2 plan- advise to continue with empiric levaquin for ? asp pneumonitis. day #2 f/u repeat cxr. monitor aspiration precautions. advise to ontinue with vanco for Right facial preorbital ?cellulits. day #2 keep vanco trough <15. Neuro f/u for seizure management. All above d/w ICU team. Critical care time spent 40 minutes.
--- NOTE | 2018-09-15 15:47 | RAD ---
Date of service: 09/15/2018 HISTORY: fevers COMPARISON: 09/15/2018 FINDINGS: LUNGS: The lungs are well inflated. There is airspace disease in the right lower lobe PLEURA: No pleural effusions or pneumothorax. CARDIOVASCULAR: The heart is normal in size. There are aortic atherosclerotic calcifications present. OSSEOUS STRUCTURES: Within normal limits for the patient's age. VISUALIZED UPPER ABDOMEN: Normal. OTHER FINDINGS: None. IMPRESSION: Suspect developing right lower lobe pneumonia. Follow-up after medical management is recommended to ensure complete resolution.
[2018-09-16] MEDS: Fosphenytoin 100 mg/2 ml Inj IV SCH (01:03)
--- NOTE | 2018-09-16 01:42 | CP.PCM.PN ---
Subjective - Date & Time of Evaluation Date of Evaluation: 09/15/18 Time of Evaluation: 15:00 - Subjective Subjective: Seen and examined at the bed side. Continue to be Altered butopens eyes when spoken to. Does not give history. Objective - Vital Signs/Intake and Output Vital Signs (last 24 hours): Temp Pulse Resp BP Pulse Ox 98.4 F 78 29 H 108/68 99 09/16/18 00:00 09/16/18 00:00 09/16/18 00:00 09/16/18 00:00 09/16/18 00:00 Intake and Output: 09/15/18 09/16/18 18:59 06:59 Intake Total 100 Balance 100 - Medications Medications: Current Medications Acetaminophen (Tylenol 325mg Tab) 650 mg PO Q6 PRN PRN Reason: Temperature Enoxaparin Sodium (Lovenox) 40 mg SC DAILY COLETTE; Protocol Last Admin: 09/15/18 08:28 Dose: 40 mg Folic Acid (Folic Acid) 1 mg PO DAILY COLETTE Fosphenytoin Sodium (Cerebyx) 100 mg IV Q8 COLETTE Last Admin: 09/15/18 16:37 Dose: 100 mg Levofloxacin/Dextrose (Levaquin 500mg) 500 mg in 100 mls @ 100 mls/hr IVPB DAILY COLETTE; Protocol Last Admin: 09/15/18 09:15 Dose: 100 mls/hr Vancomycin HCl 1 gm/ Sodium (Chloride) 250 mls @ 166.667 mls/hr IVPB DAILY COLETTE; Protocol Last Admin: 09/15/18 10:19 Dose: 166.667 mls/hr Potassium Chloride/Dextrose/Sod Cl (Potassium Chl 20 Meq In D5-1/2ns) 1,000 mls @ 110 mls/hr IV .Q9H6M COLETTE Stop: 09/16/18 09:37 Last Admin: 09/15/18 23:28 Dose: 110 mls/hr Lorazepam (Ativan) 1 mg IVP Q4H PRN PRN Reason: Symptoms of alcohol withdrawl Last Admin: 09/15/18 21:35 Dose: 1 mg Neomycin/Polymyxin/Gramicidin (Neosporin Opht Susan) 1 drop OD Q6 COLETTE Last Admin: 09/15/18 22:35 Dose: 1 drop Thiamine HCl (Vitamin B1 Tab) 100 mg PO DAILY COLETTE - Labs Labs: 09/15/18 06:28 09/15/18 06:28 Assessment and Plan (1) Altered mental state Status: Acute (2) Fever Status: Acute (3) Witnessed seizure Status: Acute (4) Alcohol abuse Status: Acute (5) Recurrent seizures Status: Acute - Assessment and Plan (Free Text) Plan: Continue Current Care
[2018-09-16] MEDS: NEOSPORIN OD SCH ×4 (04:52→21:30)
[2018-09-16 05:39] LABS: BASO % 0.6 % (0.0-2.0); EOS # 0.2 K/uL (0.0-0.7); EOS % 5.1 % (0.0-4.0); HEMOGLOBIN 10.9 g/dL (12.0-16.0); LYMPH # 0.9 K/uL (1.0-4.3); MEAN CORPUSCULAR HEMOGLOBIN 31.3 pg (27.0-31.0); MEAN CORPUSCULAR HGB CONC 32.3 g/dL (33.0-37.0); MONO # 0.5 K/uL (0.0-0.8); NEUT # 2.6 K/uL (1.8-7.0); NEUT % 61.3 % (50.0-75.0); RBC 3.47 Mil/uL (3.80-5.20); RED CELL DISTRIBUTION WIDTH 15.1 % (11.5-14.5); WHITE BLOOD COUNT 4.2 K/uL (4.8-10.8)
[2018-09-16 05:55] LABS: BLOOD UREA NITROGEN 4 mg/dl (7-17); CALCIUM 8.3 mg/dL (8.4-10.2); GFR NON-AFRICAN AMERICAN > 60
--- NOTE | 2018-09-16 07:26 | CP.CCUPN ---
<Cheryl Kemp - Last Filed: 09/16/18 12:20> CCU Subjective - Physician Review Events Since Last Encounter (Free Text): 48 YO female with ETOH abuse was admitted after witnessed seizure episode in long term. No acute overnight events, pt had not had any seizure-like episode since admis jenn. Pt was noted to have low dilantin levels on admission, and was subsequently started on med per Neuro. Pt is seen and examined by bedside this AM, no acute overnight events Pt is awake, alert, oriented to name and place. Pt states that she is hungry and would like to eat this morning. No longer agitated, smiling. CCU Objective - Vital Signs / Intake & Output Vital Signs (Last 4 hours): Vital Signs Temp Pulse Resp BP Pulse Ox 09/16/18 06:00 77 21 112/67 93 L 09/16/18 04:00 98.4 F 73 26 H 97/63 L 92 L Intake and Output (Last 8hrs): Intake & Output 09/15/18 09/16/18 09/16/18 22:59 06:59 14:59 Intake Total 1320 Output Total 750 Balance 570 Weight 62.278 kg Intake: IV 1320 Output: Urine 750 Urine, Voided 750 - Physical Exam Head: Positive for: Atraumatic, Normocephalic, Other (swelling improved in the R eye, small lac noted in the R eyebrow healing ) Pupils: Positive for: PERRL Conjunctiva: Positive for: Other (crusting noted on eye b/l, no conjunctiva ) Ears: Positive for: Normal Mouth: Positive for: Moist Mucous Membranes Pharnyx: Positive for: Normal Nose (External): Positive for: Atraumatic Respiratory/Chest: Positive for: Clear to Auscultation Cardiovascular: Positive for: Regular Rate and Rhythm Abdomen: Negative for: Tenderness, Distention Upper Extremity: Positive for: Normal Inspection Lower Extremity: Positive for: Normal Inspection Psychiatric: Positive for: Alert - Medications Active Medications: Active Medications Generic Name Dose Route Start Last Admin Trade Name Freq PRN Reason Stop Dose Admin Acetaminophen 650 mg 09/13/18 14:04 Tylenol 325mg Tab PO Q6 PRN Temperature Enoxaparin Sodium 40 mg 09/13/18 14:00 09/15/18 08:28 Lovenox SC 40 mg DAILY COLE[facility]E Administration Protocol Folic Acid 1 mg 09/16/18 09:00 Folic Acid PO DAILY [facility] Fosphenytoin Sodium 100 mg 09/13/18 17:00 09/16/18 01:03 Cerebyx IV 100 mg Q8 COLETTE Administration Levofloxacin/Dextrose 500 mg in 100 mls @ 100 mls/hr 09/15/18 09:00 09/15/18 09:15 Levaquin 500mg IVPB 100 mls/hr DAILY COLETTE Administration Protocol Vancomycin HCl 1 gm/ Sodium 250 mls @ 166.667 mls/hr 09/15/18 09:00 09/15/18 10:19 Chloride IVPB 166.667 mls/hr DAILY COLETTE Administration Protocol Potassium Chloride/Dextrose/Sod Cl 1,000 mls @ 110 mls/hr 09/15/18 09:45 09/15/18 23:28 Potassium Chl 20 Meq In D5-1/2ns IV 09/16/18 09:37 110 mls/hr .[id number] COLETTE Administration Lorazepam 1 mg 09/14/18 09:47 09/15/18 21:35 Ativan IVP 1 mg Q4H PRN Administration Symptoms of alcohol withdrawl Neomycin/Polymyxin/Gramicidin 1 drop 09/14/18 22:00 09/16/18 04:52 Neosporin Opht Susan OD 1 drop Q6 COLETTE Administration Thiamine HCl 100 mg 09/16/18 09:00 Vitamin B1 Tab PO DAILY [facility] - Patient Studies Lab Studies: Microbiology Studies 09/13/18 08:04 MRSA Culture (Admit) - Final Nose MRSA NOT DETECTED 09/13/18 09:20 Blood Culture - Preliminary Blood-Venous NO GROWTH AFTER 48 HOURS 09/13/18 09:30 Blood Culture - Preliminary Blood-Venous NO GROWTH AFTER 48 HOURS Lab Studies 09/16/18 09/16/18 09/16/18 Range/Units 05:47 05:35 04:18 WBC 4.2 L (4.8-10.8) K/uL RBC 3.47 L (3.80-5.20) Mil/uL Hgb 10.9 L (12.0-16.0) g/dL Hct 33.6 L (34.0-47.0) % MCV 97.0 (81.0-99.0) fl MCH 31.3 H (27.0-31.0) pg MCHC 32.3 L (33.0-37.0) g/dL RDW 15.1 H (11.5-14.5) % Plt Count 275 (130-400) K/uL MPV 8.0 (7.2-11.7) fl Neut % (Auto) 61.3 (50.0-75.0) % Lymph % (Auto) 22.0 (20.0-40.0) % Ashley % (Auto) 11.0 H (0.0-10.0) % Eos % (Auto) 5.1 H (0.0-4.0) % Baso % (Auto) 0.6 (0.0-2.0) % Neut # (Auto) 2.6 (1.8-7.0) K/uL Lymph # (Auto) 0.9 L (1.0-4.3) K/uL Ashley # (Auto) 0.5 (0.0-0.8) K/uL Eos # (Auto) 0.2 (0.0-0.7) K/uL Baso # (Auto) 0.0 (0.0-0.2) K/uL Sodium 140 (132-148) mmol/l Potassium 3.7 (3.6-5.0) MMOL/L Chloride 109 H (98-107) mmol/L Carbon Dioxide 27 (22-30) mmol/L Anion Gap 8 L (10-20) BUN 4 L (7-17) mg/dl Creatinine 0.6 L (0.7-1.2) mg/dl Est GFR ( Amer) > 60 Est GFR (Non-Af Amer) > 60 POC Glucose (mg/dL) 96 (65-110) mg/dL Random Glucose 88 (65-105) mg/dL Calcium 8.3 L (8.4-10.2) mg/dL Total Bilirubin (0.2-1.3) mg/dl AST (14-36) U/L ALT (9-52) U/L Alkaline Phosphatase (38-126) U/L Total Creatine Kinase 58 (30-135) U/L Total Protein (6.3-8.2) G/DL Albumin (3.5-5.0) g/dL Globulin (2.2-3.9) gm/dL Albumin/Globulin Ratio (1.0-2.1) 09/15/18 09/15/18 09/15/18 Range/Units 21:33 06:28 06:28 WBC 7.2 (4.8-10.8) K/uL RBC 3.65 L (3.80-5.20) Mil/uL Hgb 11.6 L (12.0-16.0) g/dL Hct 35.3 (34.0-47.0) % MCV 96.6 (81.0-99.0) fl MCH 31.7 H (27.0-31.0) pg MCHC 32.8 L (33.0-37.0) g/dL RDW 15.2 H (11.5-14.5) % Plt Count 278 (130-400) K/uL MPV 7.8 (7.2-11.7) fl Neut % (Auto) 77.5 H (50.0-75.0) % Lymph % (Auto) 12.6 L (20.0-40.0) % Ashley % (Auto) 6.8 (0.0-10.0) % Eos % (Auto) 2.4 (0.0-4.0) % Baso % (Auto) 0.7 (0.0-2.0) % Neut # (Auto) 5.6 (1.8-7.0) K/uL Lymph # (Auto) 0.9 L (1.0-4.3) K/uL Ashley # (Auto) 0.5 (0.0-0.8) K/uL Eos # (Auto) 0.2 (0.0-0.7) K/uL Baso # (Auto) 0.1 (0.0-0.2) K/uL Sodium 139 (132-148) mmol/l Potassium 3.6 (3.6-5.0) MMOL/L Chloride 106 (98-107) mmol/L Carbon Dioxide 25 (22-30) mmol/L Anion Gap 12 (10-20) BUN 4 L (7-17) mg/dl Creatinine 0.6 L (0.7-1.2) mg/dl Est GFR ( Amer) > 60 Est GFR (Non-Af Amer) > 60 POC Glucose (mg/dL) 86 (65-110) mg/dL Random Glucose 110 H (65-105) mg/dL Calcium 8.3 L (8.4-10.2) mg/dL Total Bilirubin 0.3 (0.2-1.3) mg/dl AST 23 (14-36) U/L ALT 32 (9-52) U/L Alkaline Phosphatase 49 (38-126) U/L Total Creatine Kinase (30-135) U/L Total Protein 6.2 L (6.3-8.2) G/DL Albumin 3.2 L (3.5-5.0) g/dL Globulin 3.0 (2.2-3.9) gm/dL Albumin/Globulin Ratio 1.0 (1.0-2.1) 09/15/18 Range/Units 04:07 WBC (4.8-10.8) K/uL RBC (3.80-5.20) Mil/uL Hgb (12.0-16.0) g/dL Hct (34.0-47.0) % MCV (81.0-99.0) fl MCH (27.0-31.0) pg MCHC (33.0-37.0) g/dL RDW (11.5-14.5) % Plt Count (130-400) K/uL MPV (7.2-11.7) fl Neut % (Auto) (50.0-75.0) % Lymph % (Auto) (20.0-40.0) % Ashley % (Auto) (0.0-10.0) % Eos % (Auto) (0.0-4.0) % Baso % (Auto) (0.0-2.0) % Neut # (Auto) (1.8-7.0) K/uL Lymph # (Auto) (1.0-4.3) K/uL Ashley # (Auto) (0.0-0.8) K/uL Eos # (Auto) (0.0-0.7) K/uL Baso # (Auto) (0.0-0.2) K/uL Sodium (132-148) mmol/l Potassium (3.6-5.0) MMOL/L Chloride (98-107) mmol/L Carbon Dioxide (22-30) mmol/L Anion Gap (10-20) BUN (7-17) mg/dl Creatinine (0.7-1.2) mg/dl Est GFR ( Amer) Est GFR (Non-Af Amer) POC Glucose (mg/dL) 78 (65-110) mg/dL Random Glucose (65-105) mg/dL Calcium (8.4-10.2) mg/dL Total Bilirubin (0.2-1.3) mg/dl AST (14-36) U/L ALT (9-52) U/L Alkaline Phosphatase (38-126) U/L Total Creatine Kinase (30-135) U/L Total Protein (6.3-8.2) G/DL Albumin (3.5-5.0) g/dL Globulin (2.2-3.9) gm/dL Albumin/Globulin Ratio (1.0-2.1) Laboratory Results - last 24 hr 09/15/18 09/15/18 09/15/18 04:07 06:28 06:28 WBC 7.2 RBC 3.65 L Hgb 11.6 L Hct 35.3 MCV 96.6 MCH 31.7 H MCHC 32.8 L RDW 15.2 H Plt Count 278 MPV 7.8 Neut % (Auto) 77.5 H Lymph % (Auto) 12.6 L Ashley % (Auto) 6.8 Eos % (Auto) 2.4 Baso % (Auto) 0.7 Neut # (Auto) 5.6 Lymph # (Auto) 0.9 L Ashley # (Auto) 0.5 Eos # (Auto) 0.2 Baso # (Auto) 0.1 Sodium 139 Potassium 3.6 Chloride 106 Carbon Dioxide 25 Anion Gap 12 BUN 4 L Creatinine 0.6 L Est GFR ( Amer) > 60 Est GFR (Non-Af Amer) > 60 POC Glucose (mg/dL) 78 Random Glucose 110 H Calcium 8.3 L Total Bilirubin 0.3 AST 23 ALT 32 Alkaline Phosphatase 49 Total Creatine Kinase Total Protein 6.2 L Albumin 3.2 L Globulin 3.0 Albumin/Globulin Ratio 1.0 09/15/18 09/16/18 09/16/18 21:33 04:18 05:35 WBC 4.2 L RBC 3.47 L Hgb 10.9 L Hct 33.6 L MCV 97.0 MCH 31.3 H MCHC 32.3 L RDW 15.1 H Plt Count 275 MPV 8.0 Neut % (Auto) 61.3 Lymph % (Auto) 22.0 Ashley % (Auto) 11.0 H Eos % (Auto) 5.1 H Baso % (Auto) 0.6 Neut # (Auto) 2.6 Lymph # (Auto) 0.9 L Ashley # (Auto) 0.5 Eos # (Auto) 0.2 Baso # (Auto) 0.0 Sodium Potassium Chloride Carbon Dioxide Anion Gap BUN Creatinine Est GFR ( Amer) Est GFR (Non-Af Amer) POC Glucose (mg/dL) 86 96 Random Glucose Calcium Total Bilirubin AST ALT Alkaline Phosphatase Total Creatine Kinase Total Protein Albumin Globulin Albumin/Globulin Ratio 09/16/18 05:47 WBC RBC Hgb Hct MCV MCH MCHC RDW Plt Count MPV Neut % (Auto) Lymph % (Auto) Ashley % (Auto) Eos % (Auto) Baso % (Auto) Neut # (Auto) Lymph # (Auto) Ashley # (Auto) Eos # (Auto) Baso # (Auto) Sodium 140 Potassium 3.7 Chloride 109 H Carbon Dioxide 27 Anion Gap 8 L BUN 4 L Creatinine 0.6 L Est GFR ( Amer) > 60 Est GFR (Non-Af Amer) > 60 POC Glucose (mg/dL) Random Glucose 88 Calcium 8.3 L Total Bilirubin AST ALT Alkaline Phosphatase Total Creatine Kinase 58 Total Protein Albumin Globulin Albumin/Globulin Ratio Radiology Impressions: Radiology Impressions Chest X-Ray 09/15/18 09:44 IMPRESSION: Suspect developing right lower lobe pneumonia. Follow-up after medical management is recommended to ensure complete resolution. Fingerstick Blood Sugar Results: 100 Critical Care Progress Note - Nutrition Nutrition: Nutrition Category Date Time Status NPO Diet [DIET] Diets 09/15/18 Breakfast Active Assessment/Plan - Assessment and Plan (Free Text) Assessment: A/P: 48 YO Female with Hx of ETOH abuse is admitted for seizures, fever and ETOH abuse. AMS/Seizure -improving -acute on chronic -likely 2/2 to medicine non-compliance and ETOH abuse -Dilantin level <3 (09/14), repeat pending -CT head no acute findings -Neurology on board; c/w with meds as per neuro -Ct head per neuro pending today -per neuro, fosphenotonin IV switched to ER 400mg PO -psych consulted -PT consulted Fever of unknown origin -resolved -likely 2/2 to seizures -Infectious etiology less likely given WBC and resolution of the fever -will d/c abx at this time Rhabdomyolysis -resolved -likely 2/2 to seizure ETOH abuse -chronic -cont to monitor for withdrawal symptoms -[facility] protocol -Ativan PRN DVT -Lovenox SC <Brian Solorzano - Last Filed: 09/16/18 15:21> CCU Objective - Vital Signs / Intake & Output Vital Signs (Last 4 hours): Vital Signs Temp Pulse Resp BP Pulse Ox 09/16/18 12:00 99 F 92 H 23 96/62 L 94 L Intake and Output (Last 8hrs): Intake & Output 09/16/18 09/16/18 09/16/18 06:59 14:59 22:59 Intake Total 320 Balance 320 Weight 137 lb 4.8 oz Intake: IV 220 Intake, Piggyback 100 - Medications Active Medications: Active Medications Generic Name Dose Route Start Last Admin Trade Name Freq PRN Reason Stop Dose Admin Acetaminophen 650 mg 09/13/18 14:04 Tylenol 325mg Tab PO Q6 PRN Temperature Enoxaparin Sodium 40 mg 09/13/18 14:00 09/16/18 09:45 Lovenox SC 40 mg DAILY COLETTE Administration Protocol Folic Acid 1 mg 09/16/18 09:00 09/16/18 12:35 Folic Acid PO 1 mg DAILY COLETTE Administration Lorazepam 1 mg 09/14/18 09:47 09/16/18 09:41 Ativan IVP 1 mg Q4H PRN Administration Symptoms of alcohol withdrawl Neomycin/Polymyxin/Gramicidin 1 drop 09/14/18 22:00 09/16/18 09:49 Neosporin Opht Susan OD 1 drop Q6 COLETTE Administration Phenytoin Sodium 400 mg 09/16/18 22:00 Dilantin PO HS COLETTE Thiamine HCl 100 mg 09/16/18 09:00 09/16/18 12:35 Vitamin B1 Tab PO 100 mg DAILY COLETTE Administration - Patient Studies Lab Studies: Microbiology Studies 09/13/18 09:20 Blood Culture - Preliminary Blood-Venous NO GROWTH AFTER 3 DAYS 09/13/18 09:30 Blood Culture - Preliminary Blood-Venous NO GROWTH AFTER 3 DAYS 09/13/18 08:04 MRSA Culture (Admit) - Final Nose MRSA NOT DETECTED Lab Studies 09/16/18 09/16/18 09/16/18 Range/Units 05:47 05:35 04:18 WBC 4.2 L (4.8-10.8) K/uL RBC 3.47 L (3.80-5.20) Mil/uL Hgb 10.9 L (12.0-16.0) g/dL Hct 33.6 L (34.0-47.0) % MCV 97.0 (81.0-99.0) fl MCH 31.3 H (27.0-31.0) pg MCHC 32.3 L (33.0-37.0) g/dL RDW 15.1 H (11.5-14.5) % Plt Count 275 (130-400) K/uL MPV 8.0 (7.2-11.7) fl Neut % (Auto) 61.3 (50.0-75.0) % Lymph % (Auto) 22.0 (20.0-40.0) % Ashley % (Auto) 11.0 H (0.0-10.0) % Eos % (Auto) 5.1 H (0.0-4.0) % Baso % (Auto) 0.6 (0.0-2.0) % Neut # (Auto) 2.6 (1.8-7.0) K/uL Lymph # (Auto) 0.9 L (1.0-4.3) K/uL Ashley # (Auto) 0.5 (0.0-0.8) K/uL Eos # (Auto) 0.2 (0.0-0.7) K/uL Baso # (Auto) 0.0 (0.0-0.2) K/uL Sodium 140 (132-148) mmol/l Potassium 3.7 (3.6-5.0) MMOL/L Chloride 109 H (98-107) mmol/L Carbon Dioxide 27 (22-30) mmol/L Anion Gap 8 L (10-20) BUN 4 L (7-17) mg/dl Creatinine 0.6 L (0.7-1.2) mg/dl Est GFR ( Amer) > 60 Est GFR (Non-Af Amer) > 60 POC Glucose (mg/dL) 96 (65-110) mg/dL Random Glucose 88 (65-105) mg/dL Calcium 8.3 L (8.4-10.2) mg/dL Total Creatine Kinase 58 (30-135) U/L Free Phenytoin (1.0-2.0) mg/L 09/15/18 09/14/18 Range/Units 21:33 05:13 WBC (4.8-10.8) K/uL RBC (3.80-5.20) Mil/uL Hgb (12.0-16.0) g/dL Hct (34.0-47.0) % MCV (81.0-99.0) fl MCH (27.0-31.0) pg MCHC (33.0-37.0) g/dL RDW (11.5-14.5) % Plt Count (130-400) K/uL MPV (7.2-11.7) fl Neut % (Auto) (50.0-75.0) % Lymph % (Auto) (20.0-40.0) % Ashley % (Auto) (0.0-10.0) % Eos % (Auto) (0.0-4.0) % Baso % (Auto) (0.0-2.0) % Neut # (Auto) (1.8-7.0) K/uL Lymph # (Auto) (1.0-4.3) K/uL Ashley # (Auto) (0.0-0.8) K/uL Eos # (Auto) (0.0-0.7) K/uL Baso # (Auto) (0.0-0.2) K/uL Sodium (132-148) mmol/l Potassium (3.6-5.0) MMOL/L Chloride (98-107) mmol/L Carbon Dioxide (22-30) mmol/L Anion Gap (10-20) BUN (7-17) mg/dl Creatinine (0.7-1.2) mg/dl Est GFR ( Amer) Est GFR (Non-Af Amer) POC Glucose (mg/dL) 86 (65-110) mg/dL Random Glucose (65-105) mg/dL Calcium (8.4-10.2) mg/dL Total Creatine Kinase (30-135) U/L Free Phenytoin 1.8 (1.0-2.0) mg/L Laboratory Results - last 24 hr 09/14/18 09/15/18 09/16/18 05:13 21:33 04:18 WBC 4.2 L RBC 3.47 L Hgb 10.9 L Hct 33.6 L MCV 97.0 MCH 31.3 H MCHC 32.3 L RDW 15.1 H Plt Count 275 MPV 8.0 Neut % (Auto) 61.3 Lymph % (Auto) 22.0 Ashley % (Auto) 11.0 H Eos % (Auto) 5.1 H Baso % (Auto) 0.6 Neut # (Auto) 2.6 Lymph # (Auto) 0.9 L Ashley # (Auto) 0.5 Eos # (Auto) 0.2 Baso # (Auto) 0.0 Sodium Potassium Chloride Carbon Dioxide Anion Gap BUN Creatinine Est GFR ( Amer) Est GFR (Non-Af Amer) POC Glucose (mg/dL) 86 Random Glucose Calcium Total Creatine Kinase Free Phenytoin 1.8 09/16/18 09/16/18 05:35 05:47 WBC RBC Hgb Hct MCV MCH MCHC RDW Plt Count MPV Neut % (Auto) Lymph % (Auto) Ashley % (Auto) Eos % (Auto) Baso % (Auto) Neut # (Auto) Lymph # (Auto) Ashley # (Auto) Eos # (Auto) Baso # (Auto) Sodium 140 Potassium 3.7 Chloride 109 H Carbon Dioxide 27 Anion Gap 8 L BUN 4 L Creatinine 0.6 L Est GFR ( Amer) > 60 Est GFR (Non-Af Amer) > 60 POC Glucose (mg/dL) 96 Random Glucose 88 Calcium 8.3 L Total Creatine Kinase 58 Free Phenytoin Radiology Impressions: Radiology Impressions Chest X-Ray 09/15/18 09:44 IMPRESSION: Suspect developing right lower lobe pneumonia. Follow-up after medical management is recommended to ensure complete resolution. Head CT 09/16/18 07:49 IMPRESSION: No acute intracranial abnormality. 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 Critical Care Progress Note - Nutrition Nutrition: Nutrition Category Date Time Status Regular Diet [DIET] Diets 09/16/18 Breakfast Active Assessment/Plan (1) Altered mental state Current Visit: Yes Status: Acute Priority: High Attending/Attestation - Attestation I have personally seen and examined this patient.: Yes I have fully participated in the care of the patient.: Yes I have reviewed all pertinent clinical information: Yes Notes (Text): 09/16/18 15:17 I have seen and examined the patient. Medical records, lab studies, and imaging were reviewed by me and a management plan was formulated on multidisciplinary rounds with resident Dr. Kemp. I agree with their above documented assessment and plan. Patient was going through alcohol withdrawal with violent reactions. Today she is much calmer with a low CIWA score. We have put her on extended release Dilantin, for hopeful terminologist compliance. Critical Care Time 35 minutes. Multi-disciplinary rounds were performed with house staff, nursing, speech therapy, respiratory therapy, pharmacy and nutrition with integrated input from the primary team/attending and other consulting services. The documented time is cumulative and includes review of patient data/exams/labs/chart review and examination of the patient on rounds and throughout the day; time is exclusive of any procedures or teaching time. 09/16/18 15:18
[2018-09-16] MEDS: levoFLOXacin 500 mg in D5W 500 MG/100 ML BAG IVPB SCH (09:43)
[2018-09-16] MEDS: Potassium Ch 20mEq in D5-1/2NS 1,000 ML IV SCH (09:44)
[2018-09-16] MEDS: Enoxaparin 40 mg Syringe SC SCH (09:45)
--- NOTE | 2018-09-16 11:12 | CP.PCM.PN ---
<Rose Clarke - Last Filed: 09/16/18 12:18> Subjective - Date & Time of Evaluation Date of Evaluation: 09/16/18 Time of Evaluation: 11:12 - Subjective Subjective: Neurology Follow-Up Note: Mrs. Riggins was evaluated this morning in the ICU. Per chart review, pt has periods of agitation and tries to pull of tubing/lines. Today pt is awake, alert and follows commands. She states that she feels "fine" and is eager to be d/c home. She currently denies h/a, dizziness, visual changes, chest pain, sob, n/v/d. Objective - Vital Signs/Intake and Output Vital Signs (last 24 hours): Temp Pulse Resp BP Pulse Ox 98.1 F 79 26 H 113/68 95 09/16/18 08:00 09/16/18 08:00 09/16/18 08:00 09/16/18 08:00 09/16/18 08:00 Intake and Output: 09/16/18 09/16/18 06:59 18:59 Intake Total 1320 Output Total 750 Balance 570 - Medications Medications: Current Medications Acetaminophen (Tylenol 325mg Tab) 650 mg PO Q6 PRN PRN Reason: Temperature Enoxaparin Sodium (Lovenox) 40 mg SC DAILY [facility]; Protocol Last Admin: 09/16/18 09:45 Dose: 40 mg Folic Acid (Folic Acid) 1 mg PO DAILY [facility]E Last Admin: 09/16/18 09:53 Dose: Not Given Levofloxacin/Dextrose (Levaquin 500mg) 500 mg in 100 mls @ 100 mls/hr IVPB DAILY [facility]; Protocol Last Admin: 09/16/18 09:43 Dose: 100 mls/hr Vancomycin HCl 1 gm/ Sodium (Chloride) 250 mls @ 166.667 mls/hr IVPB DAILY [facility]; Protocol Last Admin: 09/16/18 09:52 Dose: 166.667 mls/hr Lorazepam (Ativan) 1 mg IVP Q4H PRN PRN Reason: Symptoms of alcohol withdrawl Last Admin: 09/16/18 09:41 Dose: 1 mg Neomycin/Polymyxin/Gramicidin (Neosporin Opht Susan) 1 drop OD Q6 [facility]LETTE Last Admin: 09/16/18 09:49 Dose: 1 drop Phenytoin Sodium (Dilantin) 400 mg PO ONCE [facility] Thiamine HCl (Vitamin B1 Tab) 100 mg PO DAILY [facility] Last Admin: 09/16/18 09:53 Dose: Not Given - Labs Labs: 09/16/18 04:18 09/16/18 05:47 - Constitutional Appears: No Acute Distress, Other (unkempt) - Head Exam Head Exam: NORMOCEPHALIC - Eye Exam Eye Exam: EOMI Pupil Exam: NORMAL ACCOMODATION, PERRL - ENT Exam ENT Exam: Mucous Membranes Moist - Neck Exam Neck Exam: Full ROM - Respiratory Exam Respiratory Exam: NORMAL BREATHING PATTERN - Cardiovascular Exam Cardiovascular Exam: REGULAR RHYTHM - Extremities Exam Extremities Exam: Full ROM. absent: Calf Tenderness, Pedal Edema - Back Exam Back Exam: Full ROM - Neurological Exam Neurological Exam: Alert, Awake. absent: Oriented x3 Neuro motor strength exam: Left Upper Extremity: 4, Right Upper Extremity: 4, Left Lower Extremity: 4, Right Lower Extremity: 4 Additional comments: Awake, alert; disoriented x3 Speech clear FROM to BUE and BLE Strength BUE and BLE equal Sensation intact Reflexes brisk No tremors noted; no clonus - Psychiatric Exam Additional comments: cooperative; follows commands; calm - Skin Skin Exam: Normal Color Assessment and Plan (1) Seizure disorder Assessment & Plan: Imaging reviewed: -CT Head (09/16/18): pending results. -CT Head (09/13/18): No acute intracranial abnormality. 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 Mrs. Riggins is admitted for a witnessed seizure that is likely 2/2 a subtherapeutic Phenytoin level and ETOH withdrawal. She remains lethargic t shon. -F/U with CT Head done this morning. -VEEG x24 hours unable to be done 2/2 pt refusal--no need to complete VEEG at this time per Dr. Madsen. We will reconsider need for it prn. -MRI Brain unable to be done. -Continue seizure precautions. -Pending Phenytoin level that was ordered/drawn 09/14 and 09/16. -Pt was loaded this morning with Phenytoin 400mg PO x1 dose by ICU team. -We recommend to continue Phenytoin at 300mg PO QHS in hospital and upon discharge. We will sign off at this time. Reconsult prn. Notify us for acute changes or abnormal repeat head ct. Case discussed with Dr. Madsen. Status: Acute <CaleFlora - Last Filed: 09/16/18 12:41> Objective - Vital Signs/Intake and Output Vital Signs (last 24 hours): Temp Pulse Resp BP Pulse Ox 99 F 92 H 23 96/62 L 94 L 09/16/18 12:00 09/16/18 12:00 09/16/18 12:00 09/16/18 12:00 09/16/18 12:00 Intake and Output: 09/16/18 09/16/18 06:59 18:59 Intake Total 1320 Output Total 750 Balance 570 - Medications Medications: Current Medications Acetaminophen (Tylenol 325mg Tab) 650 mg PO Q6 PRN PRN Reason: Temperature Enoxaparin Sodium (Lovenox) 40 mg SC DAILY [facility]; Protocol Last Admin: 09/16/18 09:45 Dose: 40 mg Folic Acid (Folic Acid) 1 mg PO DAILY [facility] Last Admin: 09/16/18 12:35 Dose: 1 mg Lorazepam (Ativan) 1 mg IVP Q4H PRN PRN Reason: Symptoms of alcohol withdrawl Last Admin: 09/16/18 09:41 Dose: 1 mg Neomycin/Polymyxin/Gramicidin (Neosporin Opht Susan) 1 drop OD Q6 [facility] Last Admin: 09/16/18 09:49 Dose: 1 drop Phenytoin Sodium (Dilantin) 400 mg PO HS [facility] Thiamine HCl (Vitamin B1 Tab) 100 mg PO DAILY [facility] Last Admin: 09/16/18 12:35 Dose: 100 mg - Labs Labs: 09/16/18 04:18 09/16/18 05:47 Assessment and Plan - Assessment and Plan (Free Text) Assessment: All medical record entries made by the Nurse practitioner were at my direction and personally dictated by me. I have reviewed the chart and agree that the record accurately reflects my personal performance of the history, physical ex am, medical decision making, and the department course for this patient. I have also personally directed, reviewed, and agree with the discharge instructions and disposition. Thank you Dr Madsen
--- NOTE | 2018-09-16 12:40 | CT ---
Date of service: 09/16/2018 PROCEDURE: CT HEAD WITHOUT CONTRAST. HISTORY: Follow up for AMS, and unable to do MRI Brain COMPARISON: 09/13/2018. TECHNIQUE: Axial computed tomography images were obtained through the head/brain without intravenous contrast. Radiation dose: Total exam DLP = 871.07 mGy-cm. This CT exam was performed using one or more of the following dose reduction techniques: Automated exposure control, adjustment of the mA and/or kV according to patient size, and/or use of iterative reconstruction technique. FINDINGS: HEMORRHAGE: No intracranial hemorrhage. BRAIN: Johnson-white matter differentiation is preserved. There is no mass, mass effect or abnormal extra-axial fluid collection. There is no territorial infarction. The midline sagittal structures are normal. VENTRICLES: The ventricles are normal in size, shape and configuration. There is moderate age advanced cerebellar volume loss with proportionate enlargement of the 4th ventricle and cerebellar folia. CALVARIUM: There is no calvarial fracture or extracranial soft tissue swelling. PARANASAL SINUSES: Predominantly clear. MASTOID AIR CELLS: Predominantly clear. OTHER FINDINGS: None. IMPRESSION: No acute intracranial abnormality. 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
--- NOTE | 2018-09-16 13:27 | CP.PCM.CON ---
History of Present Illness - History of Present Illness History of Present Illness: consult requested for altered mental status A 48 F with H/O chronic alcoholic, Seizure, pneumonia, & Homeless arrived in dis heveled and unkempt appearance with dried urine and feces on clothes. Admitted for recurrent witnessed seizure activity, pt on evaluation, irritable and uncooperative with the interview, poor eye con tact, denied any previous psychiatric hospitalization or treatment , reported mood is tired , affect irritable and edgy , speech under productive and not goal directed, thought process tangential, denied any perceptual disturbances, denied suicidal or homicidal ideations, a;ert awake, oriented to person only stating she is in the cris and that the is july poor insight and judgment Past Patient History - Past Medical History & Family History Past Medical History?: Yes - Past Social History Smoking Status: Current Some Days Smoker Alcohol: > 2 Drinks/Day Home Situation {Lives}: Homeless - CARDIAC Hx Cardiac Disorders: No Hx Hypertension: No - PULMONARY Hx Respiratory Disorders: Yes Hx Pneumonia: Yes - NEUROLOGICAL Hx Neurological Disorder: Yes Hx Seizures: Yes Hx Syncope: Yes - HEENT Hx HEENT Problems: No - RENAL Hx Chronic Kidney Disease: No - ENDOCRINE/METABOLIC Hx Endocrine Disorders: No - HEMATOLOGICAL/ONCOLOGICAL Hx Blood Disorders: No - INTEGUMENTARY Hx Dermatological Problems: No - MUSCULOSKELETAL/RHEUMATOLOGICAL Hx Musculoskeletal Disorders: No Hx Falls: Yes - GASTROINTESTINAL Hx Gastrointestinal Disorders: No - GENITOURINARY/GYNECOLOGICAL Hx Sexually Transmitted Disorders: No - PSYCHIATRIC Hx Psychophysiologic Disorder: No Hx Substance Use: Yes (unable to assess) - SURGICAL HISTORY Hx Surgeries: Yes - ANESTHESIA Hx Anesthesia: Yes (unable to assess) Hx Anesthesia Reactions: (unable to assess) Hx Malignant Hyperthermia: (unable to assess) Has any member of the family had a problem w/ anesthesia?: (unable to assess) Meds Allergies/Adverse Reactions: Allergies Allergy/AdvReac Type Severity Reaction Status Date / Time No Known Allergies Allergy Verified 09/10/18 22:15 - Medications Medications: Current Medications Acetaminophen (Tylenol 325mg Tab) 650 mg PO Q6 PRN PRN Reason: Temperature Enoxaparin Sodium (Lovenox) 40 mg SC DAILY [facility]; Protocol Last Admin: 09/16/18 09:45 Dose: 40 mg Folic Acid (Folic Acid) 1 mg PO DAILY [facility] Last Admin: 09/16/18 09:53 Dose: Not Given Lorazepam (Ativan) 1 mg IVP Q4H PRN PRN Reason: Symptoms of alcohol withdrawl Last Admin: 09/16/18 09:41 Dose: 1 mg Neomycin/Polymyxin/Gramicidin (Neosporin Opht Susan) 1 drop OD Q6 [facility] Last Admin: 09/16/18 09:49 Dose: 1 drop Phenytoin Sodium (Dilantin) 400 mg PO ONCE [facility] Thiamine HCl (Vitamin B1 Tab) 100 mg PO DAILY [facility] Last Admin: 09/16/18 09:53 Dose: Not Given Results - Vital Signs Recent Vital Signs: Last Vital Signs Temp 98.1 F 09/16/18 08:00 Pulse 79 09/16/18 08:00 Resp 26 H 09/16/18 08:00 BP 113/68 09/16/18 08:00 Pulse Ox 95 09/16/18 08:00 - Labs Result Diagrams: 09/16/18 04:18 09/16/18 05:47 Labs: Laboratory Results - last 24 hr 09/15/18 09/15/18 09/16/18 04:07 21:33 04:18 WBC 4.2 L RBC 3.47 L Hgb 10.9 L Hct 33.6 L MCV 97.0 MCH 31.3 H MCHC 32.3 L RDW 15.1 H Plt Count 275 MPV 8.0 Neut % (Auto) 61.3 Lymph % (Auto) 22.0 [place] % (Auto) 11.0 H Eos % (Auto) 5.1 H Baso % (Auto) 0.6 Neut # (Auto) 2.6 Lymph # (Auto) 0.9 L [place] # (Auto) 0.5 Eos # (Auto) 0.2 Baso # (Auto) 0.0 Sodium Potassium Chloride Carbon Dioxide Anion Gap BUN Creatinine Est GFR ( Amer) Est GFR (Non-Af Amer) POC Glucose (mg/dL) 78 86 Random Glucose Calcium Total Creatine Kinase 09/16/18 09/16/18 05:35 05:47 WBC RBC Hgb Hct MCV MCH MCHC RDW Plt Count MPV Neut % (Auto) Lymph % (Auto) [place] % (Auto) Eos % (Auto) Baso % (Auto) Neut # (Auto) Lymph # (Auto) [place] # (Auto) Eos # (Auto) Baso # (Auto) Sodium 140 Potassium 3.7 Chloride 109 H Carbon Dioxide 27 Anion Gap 8 L BUN 4 L Creatinine 0.6 L Est GFR ( Amer) > 60 Est GFR (Non-Af Amer) > 60 POC Glucose (mg/dL) 96 Random Glucose 88 Calcium 8.3 L Total Creatine Kinase 58 Assessment & Plan - Assessment and Plan (Free Text) Assessment: delirium hyperactive rule out major neurocognitive disorder Plan: recommend starting ativan 1mg po tid start neurontin 100mg tid for anxiety and irritability
[2018-09-16 14:15] LABS: PHENYTOIN,FREE 1.8 mg/L (1.0-2.0)
[2018-09-16] MEDS ORDERED: Potassium Ch 20mEq in D5-1/2NS 1,000 ML IV SCH (21:30)
[2018-09-17 05:11] LABS: BASO % 0.7 % (0.0-2.0); EOS # 0.2 K/uL (0.0-0.7); EOS % 4.1 % (0.0-4.0); LYMPH # 1.4 K/uL (1.0-4.3); LYMPH % 30.6 % (20.0-40.0); MEAN CELL VOLUME 96.2 fl (81.0-99.0); MEAN CORPUSCULAR HEMOGLOBIN 30.8 pg (27.0-31.0); MEAN CORPUSCULAR HGB CONC 32.1 g/dL (33.0-37.0); MEAN PLATELET VOLUME 7.5 fl (7.2-11.7); MONO # 0.5 K/uL (0.0-0.8); MONO % 10.7 % (0.0-10.0); NEUT # 2.5 K/uL (1.8-7.0); NEUT % 53.9 % (50.0-75.0); NRBC % 0.1 % (0.0-0.0); RBC 3.56 Mil/uL (3.80-5.20); RED CELL DISTRIBUTION WIDTH 15.2 % (11.5-14.5); WHITE BLOOD COUNT 4.7 K/uL (4.8-10.8)
[2018-09-17 05:32] LABS: ALB/GLOB RATIO 1.1 (1.0-2.1); ALBUMIN 3.3 g/dL (3.5-5.0); ALT/SGPT 49 U/L (9-52); AST/SGOT 39 U/L (14-36); BLOOD UREA NITROGEN 8 mg/dl (7-17); CALCIUM 8.6 mg/dL (8.4-10.2); GFR NON-AFRICAN AMERICAN > 60
[2018-09-17] MEDS: Enoxaparin 40 mg Syringe SC SCH (09:49)
[2018-09-17] MEDS: NEOSPORIN OD SCH (09:51)
[2018-09-17] MEDS ORDERED: Influenza Vaccine (5 YR UP)/PF 60 MCG/0.5 ML SYR IM ONE (10:08)
--- NOTE | 2018-09-17 10:10 | CP.PCM.PN ---
Subjective - Date & Time of Evaluation Date of Evaluation: 09/17/18 Time of Evaluation: 10:09 - Subjective Subjective: ID Note- pt. seen and examined today in ICU. patient awake and alert and much better clinically. she denies any HORTON, denies any fever or chills. her facial and pre-orbital cellulitis has resolved. Objective - Vital Signs/Intake and Output Vital Signs (last 24 hours): Temp Pulse Resp BP Pulse Ox 98.5 F 80 21 113/63 100 09/17/18 04:00 09/17/18 06:00 09/17/18 06:00 09/17/18 04:00 09/17/18 06:00 Intake and Output: 09/17/18 09/17/18 06:59 18:59 Intake Total 1110 Balance 1110 - Medications Medications: Current Medications Acetaminophen (Tylenol 325mg Tab) 650 mg PO Q6 PRN PRN Reason: Temperature Enoxaparin Sodium (Lovenox) 40 mg SC DAILY [facility]; Protocol Last Admin: 09/17/18 09:49 Dose: 40 mg Folic Acid (Folic Acid) 1 mg PO DAILY [facility] Last Admin: 09/17/18 09:50 Dose: 1 mg Lorazepam (Ativan) 1 mg IVP Q4H PRN PRN Reason: Symptoms of alcohol withdrawl Last Admin: 09/16/18 16:43 Dose: 1 mg Neomycin/Polymyxin/Gramicidin (Neosporin Opht Susan) 1 drop OD Q6 [facility] Last Admin: 09/17/18 09:51 Dose: 1 drop Phenytoin Sodium (Dilantin) 400 mg PO HS [facility] Last Admin: 09/16/18 21:29 Dose: 400 mg Thiamine HCl (Vitamin B1 Tab) 100 mg PO DAILY [facility] Last Admin: 09/17/18 09:51 Dose: 100 mg - Labs Labs: - Additional Findings Additional findings: - Constitutional Appears: No Acute Distress, Unkempt, less agitated - Eye Exam Additional comments: right periorbital erythema and facial erythema completely resolved right conjunctivitis is also resolved - Neck Exam Neck exam: Positive for: Full Rom - Respiratory Exam Respiratory Exam: NORMAL BREATHING PATTERN Additional comments: - Cardiovascular Exam Cardiovascular Exam: RRR, +S1, +S2 - GI/Abdominal Exam GI & Abdominal Exam: Normal Bowel Sounds, Soft Additional comments: NT, ND - Extremities Exam Additional comments: no edema - Neurological Exam Neurological exam: awake , alert and in good spirits Laboratory Results - last 72 hr 09/14/18 09/15/18 09/15/18 05:13 04:07 06:28 WBC 7.2 RBC 3.65 L Hgb 11.6 L Hct 35.3 MCV 96.6 MCH 31.7 H MCHC 32.8 L RDW 15.2 H Plt Count 278 MPV 7.8 Neut % (Auto) 77.5 H Lymph % (Auto) 12.6 L [place] % (Auto) 6.8 Eos % (Auto) 2.4 Baso % (Auto) 0.7 Neut # (Auto) 5.6 Lymph # (Auto) 0.9 L [place] # (Auto) 0.5 Eos # (Auto) 0.2 Baso # (Auto) 0.1 Sodium Potassium Chloride Carbon Dioxide Anion Gap BUN Creatinine Est GFR ( Amer) Est GFR (Non-Af Amer) POC Glucose (mg/dL) 78 Random Glucose Calcium Phosphorus Magnesium Total Bilirubin AST ALT Alkaline Phosphatase Total Creatine Kinase Total Protein Albumin Globulin Albumin/Globulin Ratio Free Phenytoin 1.8 09/15/18 09/15/18 09/16/18 06:28 21:33 04:18 WBC 4.2 L RBC 3.47 L Hgb 10.9 L Hct 33.6 L MCV 97.0 MCH 31.3 H MCHC 32.3 L RDW 15.1 H Plt Count 275 MPV 8.0 Neut % (Auto) 61.3 Lymph % (Auto) 22.0 [place] % (Auto) 11.0 H Eos % (Auto) 5.1 H Baso % (Auto) 0.6 Neut # (Auto) 2.6 Lymph # (Auto) 0.9 L [place] # (Auto) 0.5 Eos # (Auto) 0.2 Baso # (Auto) 0.0 Sodium 139 Potassium 3.6 Chloride 106 Carbon Dioxide 25 Anion Gap 12 BUN 4 L Creatinine 0.6 L Est GFR ( Amer) > 60 Est GFR (Non-Af Amer) > 60 POC Glucose (mg/dL) 86 Random Glucose 110 H Calcium 8.3 L Phosphorus Magnesium Total Bilirubin 0.3 AST 23 ALT 32 Alkaline Phosphatase 49 Total Creatine Kinase Total Protein 6.2 L Albumin 3.2 L Globulin 3.0 Albumin/Globulin Ratio 1.0 Free Phenytoin 09/16/18 09/16/18 09/17/18 05:35 05:47 04:27 WBC RBC Hgb Hct MCV MCH MCHC RDW Plt Count MPV Neut % (Auto) Lymph % (Auto) [place] % (Auto) Eos % (Auto) Baso % (Auto) Neut # (Auto) Lymph # (Auto) [place] # (Auto) Eos # (Auto) Baso # (Auto) Sodium 140 Potassium 3.7 Chloride 109 H Carbon Dioxide 27 Anion Gap 8 L BUN 4 L Creatinine 0.6 L Est GFR ( Amer) > 60 Est GFR (Non-Af Amer) > 60 POC Glucose (mg/dL) 96 93 Random Glucose 88 Calcium 8.3 L Phosphorus Magnesium Total Bilirubin AST ALT Alkaline Phosphatase Total Creatine Kinase 58 Total Protein Albumin Globulin Albumin/Globulin Ratio Free Phenytoin 09/17/18 09/17/18 04:31 04:31 WBC 4.7 L RBC 3.56 L Hgb 11.0 L Hct 34.2 MCV 96.2 MCH 30.8 MCHC 32.1 L RDW 15.2 H Plt Count 321 MPV 7.5 Neut % (Auto) 53.9 Lymph % (Auto) 30.6 [place] % (Auto) 10.7 H Eos % (Auto) 4.1 H Baso % (Auto) 0.7 Neut # (Auto) 2.5 Lymph # (Auto) 1.4 [place] # (Auto) 0.5 Eos # (Auto) 0.2 Baso # (Auto) 0.0 Sodium 141 Potassium 4.1 Chloride 109 H Carbon Dioxide 26 Anion Gap 10 BUN 8 Creatinine 0.6 L Est GFR ( Amer) > 60 Est GFR (Non-Af Amer) > 60 POC Glucose (mg/dL) Random Glucose 95 Calcium 8.6 Phosphorus 4.3 Magnesium 1.7 Total Bilirubin 0.1 L AST 39 H D ALT 49 Alkaline Phosphatase 71 Total Creatine Kinase Total Protein 6.3 Albumin 3.3 L Globulin 3.0 Albumin/Globulin Ratio 1.1 Free Phenytoin Microbiology 09/13/18 09:20 Blood-Venous Blood Culture - Preliminary NO GROWTH AFTER 4 DAYS 09/13/18 09:30 Blood-Venous Blood Culture - Preliminary NO GROWTH AFTER 4 DAYS 09/13/18 08:04 Nose MRSA Culture (Admit) - Final MRSA NOT DETECTED Assessment and Plan (1) Altered mental state Status: Acute (2) Witnessed seizure Status: Acute (3) Alcohol use disorder Status: Acute - Assessment and Plan (Free Text) Assessment: A/P- 48 ovi old female with h/o epilepsuy and alcoholism and frequent ED visit with etoh intoxication who was sent from senior living for seizure. clinically much improved. has remained afebrile normal wbc count blood cx- neg x 2 plan- has completed 4 days of IV levaquin. advise to d/c it tomm. monitor aspiration precautions. has completed 4 days of IV vancomycin for facial /preorbital cellulit swhich has resoolved. d/c vanco now. Neuro f/u for seizure management. Critical care time spent 40 minutes.
[2018-09-18] MEDS: Enoxaparin 40 mg Syringe SC SCH (12:23)
[2018-09-18 14:31] LABS: PHENYTOIN,FREE 1.9 mg/L (1.0-2.0)
--- NOTE | 2018-09-18 23:33 | CP.PCM.PN ---
Subjective - Date & Time of Evaluation Date of Evaluation: 09/16/18 Time of Evaluation: 17:20 Objective - Vital Signs/Intake and Output Vital Signs (last 24 hours): Temp Pulse Resp BP Pulse Ox 98.7 F 79 20 104/70 98 09/18/18 16:57 09/18/18 16:57 09/18/18 16:57 09/18/18 16:57 09/18/18 16:57 - Medications Medications: Current Medications Acetaminophen (Tylenol 325mg Tab) 650 mg PO Q6 PRN PRN Reason: Temperature Enoxaparin Sodium (Lovenox) 40 mg SC DAILY [facility]; Protocol Last Admin: 09/18/18 12:23 Dose: 40 mg Folic Acid (Folic Acid) 1 mg PO DAILY [facility] Last Admin: 09/18/18 12:23 Dose: 1 mg Haloperidol Lactate (Haldol) 2 mg IM Q6 PRN PRN Reason: Agitation Last Admin: 09/18/18 17:57 Dose: 2 mg Lorazepam (Ativan) 1 mg IVP Q4H PRN PRN Reason: Symptoms of alcohol withdrawl Last Admin: 09/18/18 15:53 Dose: 1 mg Phenytoin Sodium (Dilantin) 400 mg PO HS [facility] Last Admin: 09/18/18 21:43 Dose: 400 mg Thiamine HCl (Vitamin B1 Tab) 100 mg PO DAILY [facility] Last Admin: 09/18/18 12:40 Dose: 100 mg - Labs Labs: 09/17/18 04:31 09/17/18 04:31 Assessment and Plan (1) Altered mental state Status: Acute (2) Fever Status: Acute (3) Witnessed seizure Status: Acute
--- NOTE | 2018-09-18 23:33 | CP.PCM.PN ---
Subjective - Date & Time of Evaluation Date of Evaluation: 09/17/18 Time of Evaluation: 17:05 Objective - Vital Signs/Intake and Output Vital Signs (last 24 hours): Temp Pulse Resp BP Pulse Ox 98.7 F 79 20 104/70 98 09/18/18 16:57 09/18/18 16:57 09/18/18 16:57 09/18/18 16:57 09/18/18 16:57 - Medications Medications: Current Medications Acetaminophen (Tylenol 325mg Tab) 650 mg PO Q6 PRN PRN Reason: Temperature Enoxaparin Sodium (Lovenox) 40 mg SC DAILY [facility]; Protocol Last Admin: 09/18/18 12:23 Dose: 40 mg Folic Acid (Folic Acid) 1 mg PO DAILY [facility] Last Admin: 09/18/18 12:23 Dose: 1 mg Haloperidol Lactate (Haldol) 2 mg IM Q6 PRN PRN Reason: Agitation Last Admin: 09/18/18 17:57 Dose: 2 mg Lorazepam (Ativan) 1 mg IVP Q4H PRN PRN Reason: Symptoms of alcohol withdrawl Last Admin: 09/18/18 15:53 Dose: 1 mg Phenytoin Sodium (Dilantin) 400 mg PO HS [facility] Last Admin: 09/18/18 21:43 Dose: 400 mg Thiamine HCl (Vitamin B1 Tab) 100 mg PO DAILY [facility] Last Admin: 09/18/18 12:40 Dose: 100 mg - Labs Labs: 09/17/18 04:31 09/17/18 04:31 Assessment and Plan (1) Altered mental state Status: Acute (2) Fever Status: Acute (3) Witnessed seizure Status: Acute
--- NOTE | 2018-09-18 23:34 | CP.PCM.PN ---
Subjective - Date & Time of Evaluation Date of Evaluation: 09/18/18 Time of Evaluation: 18:20 Objective - Vital Signs/Intake and Output Vital Signs (last 24 hours): Temp Pulse Resp BP Pulse Ox 98.7 F 79 20 104/70 98 09/18/18 16:57 09/18/18 16:57 09/18/18 16:57 09/18/18 16:57 09/18/18 16:57 - Medications Medications: Current Medications Acetaminophen (Tylenol 325mg Tab) 650 mg PO Q6 PRN PRN Reason: Temperature Enoxaparin Sodium (Lovenox) 40 mg SC DAILY [facility]; Protocol Last Admin: 09/18/18 12:23 Dose: 40 mg Folic Acid (Folic Acid) 1 mg PO DAILY [facility] Last Admin: 09/18/18 12:23 Dose: 1 mg Haloperidol Lactate (Haldol) 2 mg IM Q6 PRN PRN Reason: Agitation Last Admin: 09/18/18 17:57 Dose: 2 mg Lorazepam (Ativan) 1 mg IVP Q4H PRN PRN Reason: Symptoms of alcohol withdrawl Last Admin: 09/18/18 15:53 Dose: 1 mg Phenytoin Sodium (Dilantin) 400 mg PO HS [facility] Last Admin: 09/18/18 21:43 Dose: 400 mg Thiamine HCl (Vitamin B1 Tab) 100 mg PO DAILY [facility] Last Admin: 09/18/18 12:40 Dose: 100 mg - Labs Labs: 09/17/18 04:31 09/17/18 04:31 Assessment and Plan (1) Altered mental state Status: Acute (2) Fever Status: Acute (3) Witnessed seizure Status: Acute
[2018-09-19] MEDS: Enoxaparin 40 mg Syringe SC SCH (08:40)
[2018-09-20] MEDS: Enoxaparin 40 mg Syringe SC SCH (08:49)
--- NOTE | 2018-09-20 15:04 | PQF ---
PROVIDER RESPONSE TEXT: CAP Vs Aspiration Pneumonia REVIEWER QUERY TEXT: Clarification of Clinical Diagnostic Findings Please clarify if Aspiration Pneumonia should be coded versus Aspiration Pneumonia ruled out? 09/15 CXR Impression: Suspect developing right lower lobe pneumonia. Follow-up after medical management is recommended to ensure complete resolution. 09/13 Critical Care progress note: dxs. include: 4.Acute resp insuff 2?Aspiration pneumonia 09/14 ID note: advise to place on empiric levaquin for ?asp pneumonitis.monitor aspiration precaution s; ALso advise to start vanco for Right facial preorbital ?cellulits advise to start antibacterial ey e drops for right eye conjunctivitis. 09/17 ID progress note: has completed 4 days of IV levaquin.advise to d/c it tomm.monitor aspiration precautions has completed 4 days of [facility]all antibiotics discontinued The patient's Clinical Indicators include: -- Query created by: Evelin Segal on 09/20/2018 10:09 AM Electronically signed by: Carolin Noble MD 09/20/2018 3:02 PM
--- NOTE | 2018-09-21 01:31 | CP.PCM.PN ---
Subjective - Date & Time of Evaluation Date of Evaluation: 09/19/18 Objective - Vital Signs/Intake and Output Vital Signs (last 24 hours): Temp Pulse Resp BP Pulse Ox 97.8 F 72 18 118/73 95 09/20/18 23:39 09/20/18 23:39 09/20/18 23:39 09/20/18 23:39 09/20/18 23:39 - Medications Medications: Current Medications Acetaminophen (Tylenol 325mg Tab) 650 mg PO Q6 PRN PRN Reason: Temperature Enoxaparin Sodium (Lovenox) 40 mg SC DAILY [facility]; Protocol Last Admin: 09/20/18 08:49 Dose: 40 mg Folic Acid (Folic Acid) 1 mg PO DAILY [facility] Last Admin: 09/20/18 08:49 Dose: 1 mg Haloperidol Lactate (Haldol) 2 mg IM Q6 PRN PRN Reason: Agitation Last Admin: 09/19/18 23:30 Dose: 2 mg Lorazepam (Ativan) 1 mg IVP Q4H PRN PRN Reason: Symptoms of alcohol withdrawl Last Admin: 09/18/18 15:53 Dose: 1 mg Phenytoin Sodium (Dilantin) 400 mg PO HS [facility] Last Admin: 09/20/18 21:06 Dose: 400 mg Thiamine HCl (Vitamin B1 Tab) 100 mg PO DAILY [facility] Last Admin: 09/20/18 08:49 Dose: 100 mg - Labs Labs: 09/17/18 04:31 09/17/18 04:31 Assessment and Plan (1) Altered mental state Status: Acute (2) Fever Status: Acute (3) Witnessed seizure Status: Acute
--- NOTE | 2018-09-21 01:32 | CP.PCM.PN ---
Subjective - Date & Time of Evaluation Date of Evaluation: 09/20/18 Objective - Vital Signs/Intake and Output Vital Signs (last 24 hours): Temp Pulse Resp BP Pulse Ox 97.8 F 72 18 118/73 95 09/20/18 23:39 09/20/18 23:39 09/20/18 23:39 09/20/18 23:39 09/20/18 23:39 - Medications Medications: Current Medications Acetaminophen (Tylenol 325mg Tab) 650 mg PO Q6 PRN PRN Reason: Temperature Enoxaparin Sodium (Lovenox) 40 mg SC DAILY [facility]; Protocol Last Admin: 09/20/18 08:49 Dose: 40 mg Folic Acid (Folic Acid) 1 mg PO DAILY [facility] Last Admin: 09/20/18 08:49 Dose: 1 mg Haloperidol Lactate (Haldol) 2 mg IM Q6 PRN PRN Reason: Agitation Last Admin: 09/19/18 23:30 Dose: 2 mg Lorazepam (Ativan) 1 mg IVP Q4H PRN PRN Reason: Symptoms of alcohol withdrawl Last Admin: 09/18/18 15:53 Dose: 1 mg Phenytoin Sodium (Dilantin) 400 mg PO HS [facility] Last Admin: 09/20/18 21:06 Dose: 400 mg Thiamine HCl (Vitamin B1 Tab) 100 mg PO DAILY [facility] Last Admin: 09/20/18 08:49 Dose: 100 mg - Labs Labs: 09/17/18 04:31 09/17/18 04:31 Assessment and Plan (1) Altered mental state Status: Acute (2) Fever Status: Acute (3) Witnessed seizure Status: Acute
[2018-09-21] MEDS: Enoxaparin 40 mg Syringe SC SCH (08:27)
--- NOTE | 2018-09-21 11:39 | CP.PCM.PN ---
Subjective - Date & Time of Evaluation Date of Evaluation: 09/21/18 Time of Evaluation: 10:45 Objective - Vital Signs/Intake and Output Vital Signs (last 24 hours): Temp Pulse Resp BP Pulse Ox 98.1 F 74 18 114/66 96 09/21/18 08:07 09/21/18 08:07 09/21/18 08:07 09/21/18 08:07 09/21/18 08:07 - Medications Medications: Current Medications Acetaminophen (Tylenol 325mg Tab) 650 mg PO Q6 PRN PRN Reason: Temperature Enoxaparin Sodium (Lovenox) 40 mg SC DAILY [facility]; Protocol Last Admin: 09/21/18 08:27 Dose: 40 mg Folic Acid (Folic Acid) 1 mg PO DAILY [facility] Last Admin: 09/21/18 08:27 Dose: 1 mg Haloperidol Lactate (Haldol) 2 mg IM Q6 PRN PRN Reason: Agitation Last Admin: 09/19/18 23:30 Dose: 2 mg Lorazepam (Ativan) 1 mg IVP Q4H PRN PRN Reason: Symptoms of alcohol withdrawl Last Admin: 09/18/18 15:53 Dose: 1 mg Phenytoin Sodium (Dilantin) 400 mg PO HS [facility] Last Admin: 09/20/18 21:06 Dose: 400 mg Thiamine HCl (Vitamin B1 Tab) 100 mg PO DAILY [facility] Last Admin: 09/21/18 08:27 Dose: 100 mg - Labs Labs: 09/17/18 04:31 09/17/18 04:31 Assessment and Plan (1) Altered mental state Status: Acute (2) Fever Status: Acute (3) Witnessed seizure Status: Acute
--- NOTE | 2018-09-21 12:28 | CP.PCM.CON ---
History of Present Illness - History of Present Illness History of Present Illness: follow up consult 48 F with H/O chronic alcoholic, Seizure, pneumonia, & Homeless arrived in disheveled and unkempt appearance with dried urine and feces on clothes. Admitted for recurrent witnessed seizure activity, pt on evaluation, irritable and uncooperative with the interview, poor eye contact, denied any previous psychiatric hospitalization or treatment , irritable, agitated as per staff trying to elope , angry mood and affect, speech loud and not goal directed , thought process tangential with loose associatiion, denied any current suicidal or homicidal ideation denied command hallucinations, alert awake oriented to person only poor insight and judgment Past Patient History - Past Medical History & Family History Past Medical History?: Yes - Past Social History Smoking Status: Current Some Days Smoker Alcohol: > 2 Drinks/Day Home Situation {Lives}: Homeless - CARDIAC Hx Cardiac Disorders: No Hx Hypertension: No - PULMONARY Hx Respiratory Disorders: Yes Hx Pneumonia: Yes - NEUROLOGICAL Hx Neurological Disorder: Yes Hx Seizures: Yes Hx Syncope: Yes - HEENT Hx HEENT Problems: No - RENAL Hx Chronic Kidney Disease: No - ENDOCRINE/METABOLIC Hx Endocrine Disorders: No - HEMATOLOGICAL/ONCOLOGICAL Hx Blood Disorders: No - INTEGUMENTARY Hx Dermatological Problems: No - MUSCULOSKELETAL/RHEUMATOLOGICAL Hx Musculoskeletal Disorders: No Hx Falls: Yes - GASTROINTESTINAL Hx Gastrointestinal Disorders: No - GENITOURINARY/GYNECOLOGICAL Hx Sexually Transmitted Disorders: No - PSYCHIATRIC Hx Psychophysiologic Disorder: No Hx Substance Use: Yes (unable to assess) - SURGICAL HISTORY Hx Surgeries: Yes - ANESTHESIA Hx Anesthesia: Yes (unable to assess) Hx Anesthesia Reactions: (unable to assess) Hx Malignant Hyperthermia: (unable to assess) Has any member of the family had a problem w/ anesthesia?: (unable to assess) Meds Allergies/Adverse Reactions: Allergies Allergy/AdvReac Type Severity Reaction Status Date / Time No Known Allergies Allergy Verified 09/10/18 22:15 - Medications Medications: Current Medications Acetaminophen (Tylenol 325mg Tab) 650 mg PO Q6 PRN PRN Reason: Temperature Enoxaparin Sodium (Lovenox) 40 mg SC DAILY [facility]; Protocol Last Admin: 09/21/18 08:27 Dose: 40 mg Folic Acid (Folic Acid) 1 mg PO DAILY [facility] Last Admin: 09/21/18 08:27 Dose: 1 mg Gabapentin (Neurontin) 100 mg PO TID [facility] Haloperidol Lactate (Haldol) 2 mg IM Q6 PRN PRN Reason: Agitation Last Admin: 09/21/18 11:59 Dose: 2 mg Lorazepam (Ativan) 1 mg IVP Q4H PRN PRN Reason: Symptoms of alcohol withdrawl Last Admin: 09/21/18 12:00 Dose: 1 mg Lorazepam (Ativan) 1 mg PO Q8 [facility] Phenytoin Sodium (Dilantin) 400 mg PO HS [facility] Last Admin: 09/20/18 21:06 Dose: 400 mg Thiamine HCl (Vitamin B1 Tab) 100 mg PO DAILY [facility] Last Admin: 09/21/18 08:27 Dose: 100 mg Results - Vital Signs Recent Vital Signs: Last Vital Signs Temp 98.1 F 09/21/18 08:07 Pulse 74 09/21/18 08:07 Resp 18 09/21/18 08:07 BP 114/66 09/21/18 08:07 Pulse Ox 96 09/21/18 08:07 - Labs Result Diagrams: 09/17/18 04:31 09/17/18 04:31 Assessment & Plan - Assessment and Plan (Free Text) Assessment: major neurocognitive disorder with behavioral disturbances Plan: continue 1:1 as pt is elopment risk continue with ativan discontnue neurontin start depakote 250mg potid, for agitation and behavioral disturbances also recommend haldol 2mg po q8 prn for agitation
[2018-09-21] MEDS ORDERED: Haloperidol Lactate 2 mg/ml Liquid PO PRN (16:45)
[2018-09-21] MEDS: Divalproex 125 mg Sprinkle Capsule PO SCH (17:31)
[2018-09-22 08:32] VITALS: BP 93/56; RESP 19; TEMP 98
[2018-09-22] MEDS: Divalproex 125 mg Sprinkle Capsule PO SCH ×3 (08:57→17:26)
[2018-09-22] MEDS: Enoxaparin 40 mg Syringe SC SCH (08:58)
[2018-09-22 12:26] VITALS: PULSE 86
[2018-09-22 20:39] VITALS: O2SAT 95
[2018-09-23 06:37] LABS: BLOOD UREA NITROGEN 20 mg/dl (7-17); CALCIUM 9.2 mg/dL (8.4-10.2); GFR NON-AFRICAN AMERICAN > 60
[2018-09-23 06:43] LABS: HEMOGLOBIN 12.4 g/dL (12.0-16.0); MEAN CELL VOLUME 98.1 fl (81.0-99.0); MEAN CORPUSCULAR HEMOGLOBIN 31.3 pg (27.0-31.0); MEAN CORPUSCULAR HGB CONC 31.9 g/dL (33.0-37.0); RBC 3.96 Mil/uL (3.80-5.20); WHITE BLOOD COUNT 4.8 K/uL (4.8-10.8)
[2018-09-23] MEDS: Divalproex 125 mg Sprinkle Capsule PO SCH ×2 (08:47→12:01)
[2018-09-23] MEDS: Enoxaparin 40 mg Syringe SC SCH (08:50)
--- NOTE | 2018-09-23 11:23 | CP.PCM.CON ---
History of Present Illness - History of Present Illness History of Present Illness: Psychiatry follow-up note CC: AMS, now resolved; patient currently at her baseline of functioning without psychiatric complaint HPI: 48 yo female w/ h/o alcohol abuse, seizure disorder, presented w/ witnessed seizure activity. During this admission, patient had periods of confusion or irritability, which have resolved. Patient currently A + O x 3, calm, and cooperative. She understands she is in the hospital because she had seizures. Psychoeducation provided on the importance of compliance with treatment and medications. She denies depression/anxiety/AH/VH/SI/HI. She denies acute psychiatric complaints. No current aggression or behavioral issues. Patient is currently focused on housing issues. Impression: 48 yo female w/ h/o seizures disorder, had periods of delirium, which have now resolved. -Patient is psychiatrically stable for discharge at this time -No acute psychiatric medications indicated at this time -No 1:1 indicated for psychiatric reasons Past Patient History - Past Medical History & Family History Past Medical History?: Yes - Past Social History Alcohol: Other (Daily) Drugs: Denies - CARDIAC Hx Hypertension: No - PULMONARY Hx Pneumonia: Yes - NEUROLOGICAL Hx Seizures: Yes - HEENT Hx HEENT Problems: No - RENAL Hx Chronic Kidney Disease: No - ENDOCRINE/METABOLIC Hx Endocrine Disorders: No - HEMATOLOGICAL/ONCOLOGICAL Hx Human Immunodeficiency Virus (HIV): No - INTEGUMENTARY Hx Dermatological Problems: No - MUSCULOSKELETAL/RHEUMATOLOGICAL Hx Musculoskeletal Disorders: No Hx Falls: Yes - GASTROINTESTINAL Hx Gastrointestinal Disorders: No - GENITOURINARY/GYNECOLOGICAL Hx Sexually Transmitted Disorders: No - PSYCHIATRIC Hx Psychophysiologic Disorder: No Hx Substance Use: Yes (unable to assess) - SURGICAL HISTORY Hx Surgeries: Yes - ANESTHESIA Hx Anesthesia: Yes (unable to assess) Hx Anesthesia Reactions: (unable to assess) Hx Malignant Hyperthermia: (unable to assess) Has any member of the family had a problem w/ anesthesia?: (unable to assess) Meds Home Medications: Home Medication List Medication Instructions Recorded Confirmed Type Folic Acid 1 mg PO DAILY #0 tab 09/23/18 Rx Phenytoin, Extended [Dilantin] 400 mg PO HS #30 cer 09/23/18 Rx Thiamine [Vitamin B1 Tab] 100 mg PO DAILY tab 09/23/18 Rx Allergies/Adverse Reactions: Allergies Allergy/AdvReac Type Severity Reaction Status Date / Time No Known Allergies Allergy Verified 09/10/18 22:15 - Medications Medications: Current Medications Acetaminophen (Tylenol 325mg Tab) 650 mg PO Q6 PRN PRN Reason: Temperature Divalproex Sodium (Depakote Sprinkles) 250 mg PO TID [facility] Last Admin: 09/23/18 08:47 Dose: 250 mg Enoxaparin Sodium (Lovenox) 40 mg SC DAILY [facility]; Protocol Last Admin: 09/23/18 08:50 Dose: 40 mg Folic Acid (Folic Acid) 1 mg PO DAILY [facility] Last Admin: 09/23/18 08:47 Dose: 1 mg Haloperidol Lactate (Haldol) 2 mg IM Q6 PRN PRN Reason: Agitation Last Admin: 09/22/18 11:20 Dose: 2 mg Haloperidol Lactate (Haldol) 2 mg PO Q8 PRN PRN Reason: Agitation Last Admin: 09/21/18 21:03 Dose: 2 mg Lorazepam (Ativan) 1 mg IVP Q4H PRN PRN Reason: Symptoms of alcohol withdrawl Last Admin: 09/21/18 12:00 Dose: 1 mg Lorazepam (Ativan) 1 mg PO Q8 [facility] Last Admin: 09/23/18 08:53 Dose: 1 mg Phenytoin Sodium (Dilantin) 400 mg PO HS [facility] Last Admin: 09/21/18 20:59 Dose: 400 mg Thiamine HCl (Vitamin B1 Tab) 100 mg PO DAILY [facility] Last Admin: 09/23/18 08:47 Dose: 100 mg Results - Vital Signs Recent Vital Signs: Last Vital Signs Temp 98 F 09/22/18 08:30 Pulse 86 09/22/18 11:45 Resp 19 09/22/18 08:30 BP 93/56 L 09/22/18 08:30 Pulse Ox 95 09/22/18 20:38 - Labs Result Diagrams: 09/23/18 05:55 09/23/18 05:55 Labs: Laboratory Results - last 24 hr 09/23/18 09/23/18 05:55 05:55 WBC 4.8 RBC 3.96 Hgb 12.4 Hct 38.8 MCV 98.1 MCH 31.3 H MCHC 31.9 L RDW 15.0 H Plt Count 495 H D Sodium 139 Potassium 4.5 Chloride 102 Carbon Dioxide 27 Anion Gap 15 BUN 20 H Creatinine 0.7 Est GFR ( Amer) > 60 Est GFR (Non-Af Amer) > 60 Random Glucose 80 Calcium 9.2
--- NOTE | 2018-09-23 12:49 | CP.PCM.PCO ---
Assessment/Plan - Assessment/Plan Assessment (Free Text): Pt stable, aaox3, wants to go home. Pt seen by psych and cleared for discharge. Patient cleared by all consultants, per neuro, pt to be discharged on Dilantin. Rx given, to filled out in pharmacy before d/c as patient is homeless. PT cleared pt for d/c with walker. Free walker given to patient by CM. Pt's /boy friend at bedside to take patient with him. Patient seen and cleared for discharge by Dr. Noble. - Consults Consult Orders: Consultations
--- NOTE | 2018-09-23 23:21 | CP.PCM.PN ---
Subjective - Date & Time of Evaluation Date of Evaluation: 09/22/18 Objective - Vital Signs/Intake and Output Vital Signs (last 24 hours): Temp Pulse Resp BP Pulse Ox 98 F 86 19 93/56 L 95 09/22/18 08:30 09/22/18 11:45 09/22/18 08:30 09/22/18 08:30 09/22/18 20:38 - Labs Labs: 09/23/18 05:55 09/23/18 05:55 Assessment and Plan (1) Altered mental state Status: Acute (2) Fever Status: Acute (3) Witnessed seizure Status: Acute
--- NOTE | 2018-09-23 23:23 | CP.PCM.DIS ---
Provider - Provider Date of Admission: 09/13/18 13:03 Attending physician: Carolin Noble MD Consults: 09/13/18 13:10 Critical Care Consult Stat Comment: Consulting Provider: Nima Dockery Consulting Physician: Nima Dockery Reason for Consult: AMS< fever 09/13/18 14:29 Infectious Disease Consult Stat Comment: Consulting Provider: Blayne Hall Consulting Physician: Blayne Hall Reason for Consult: fever, AMS 09/13/18 14:39 Neurology Consult Routine Comment: Consulting Provider: Flora Madsen Consulting Physician: Flora Madsen Reason for Consult: seizures 09/13/18 15:12 Nursing Referral for Wound Care Routine Comment: Physician Instructions: Reason For Exam: protocol 09/16/18 10:24 Psychiatry Consult Routine Comment: Consulting Provider: Na Cazares Consulting Physician: Na Cazares Reason for Consult: pt with seizure disorder, and ETOH abuse, agitation Time Spent in preparation of Discharge (in minutes): 30 Diagnosis - Discharge Diagnosis (1) Altered mental state Status: Acute Priority: High (2) Fever Status: Acute Priority: High (3) Witnessed seizure Status: Acute Priority: High (4) Gait abnormality Status: Acute Priority: Medium (5) Alcohol abuse Status: Acute Priority: High Hospital Course - Lab Results Lab Results: Micro Results 09/17/18 18:50 Nose MRSA Culture (Admit) - Final MRSA NOT DETECTED 09/13/18 09:20 Blood-Venous Blood Culture - Final NO GROWTH AFTER 5 DAYS 09/13/18 09:30 Blood-Venous Blood Culture - Final NO GROWTH AFTER 5 DAYS 09/13/18 09:30 Blood-Venous Gram Stain - Final TEST NOT PERFORMED 09/13/18 08:04 Nose MRSA Culture (Admit) - Final MRSA NOT DETECTED Most Recent Lab Values WBC 4.8 K/uL (4.8-10.8) 09/23/18 05:55 RBC 3.96 Mil/uL (3.80-5.20) 09/23/18 05:55 Hgb 12.4 g/dL (12.0-16.0) 09/23/18 05:55 Hct 38.8 % (34.0-47.0) 09/23/18 05:55 MCV 98.1 fl (81.0-99.0) 09/23/18 05:55 MCH 31.3 pg (27.0-31.0) H 09/23/18 05:55 MCHC 31.9 g/dL (33.0-37.0) L 09/23/18 05:55 RDW 15.0 % (11.5-14.5) H 09/23/18 05:55 Plt Count 495 K/uL (130-400) H D 09/23/18 05:55 MPV 7.5 fl (7.2-11.7) 09/17/18 04:31 Neut % (Auto) 53.9 % (50.0-75.0) 09/17/18 04:31 Lymph % (Auto) 30.6 % (20.0-40.0) 09/17/18 04:31 [place] % (Auto) 10.7 % (0.0-10.0) H 09/17/18 04:31 Eos % (Auto) 4.1 % (0.0-4.0) H 09/17/18 04:31 Baso % (Auto) 0.7 % (0.0-2.0) 09/17/18 04:31 Neut # (Auto) 2.5 K/uL (1.8-7.0) 09/17/18 04:31 Lymph # (Auto) 1.4 K/uL (1.0-4.3) 09/17/18 04:31 [place] # (Auto) 0.5 K/uL (0.0-0.8) 09/17/18 04:31 Eos # (Auto) 0.2 K/uL (0.0-0.7) 09/17/18 04:31 Baso # (Auto) 0.0 K/uL (0.0-0.2) 09/17/18 04:31 Neutrophils % (Manual) 89 % (42-75) H 09/13/18 00:04 Lymphocytes % (Manual) 6 % (20-50) L 09/13/18 00:04 Monocytes % (Manual) 4 % (0-10) 09/13/18 00:04 Eosinophils % (Manual) 1 % (0-7) 09/13/18 00:04 Platelet Estimate Normal (NORMAL) 09/13/18 00:04 Anisocytosis (manual) Slight 09/13/18 00:04 pO2 40 mm/Hg (30-55) 09/13/18 09:30 VBG pH 7.41 (7.32-7.43) 09/13/18 09:30 VBG pCO2 44 mmHg (40-60) 09/13/18 09:30 VBG HCO3 26.4 mmol/L 09/13/18 09:30 VBG Total CO2 29.3 mmol/L (22-28) H 09/13/18 09:30 VBG O2 Sat (Calc) 78.8 % (40-65) H 09/13/18 09:30 VBG Base Excess 2.7 mmol/L (0.0-2.0) H 09/13/18 09:30 VBG Potassium 3.7 mmol/L (3.6-5.2) 09/13/18 09:30 Sodium 135.0 mmol/L (132-148) 09/13/18 09:30 Chloride 106.0 mmol/L (98-107) 09/13/18 09:30 Glucose 90 mg/dL (65-105) 09/13/18 09:30 Lactate 0.8 mmol/L (0.7-2.1) 09/13/18 09:30 FiO2 21.0 % 09/13/18 09:30 Sodium 139 mmol/l (132-148) 09/23/18 05:55 Potassium 4.5 MMOL/L (3.6-5.0) 09/23/18 05:55 Chloride 102 mmol/L (98-107) 09/23/18 05:55 Carbon Dioxide 27 mmol/L (22-30) 09/23/18 05:55 Anion Gap 15 (10-20) 09/23/18 05:55 BUN 20 mg/dl (7-17) H 09/23/18 05:55 Creatinine 0.7 mg/dl (0.7-1.2) 09/23/18 05:55 Est GFR ( Amer) > 60 09/23/18 05:55 Est GFR (Non-Af Amer) > 60 09/23/18 05:55 POC Glucose (mg/dL) 93 mg/dL (65-110) 09/17/18 04:27 Random Glucose 80 mg/dL (65-105) 09/23/18 05:55 Lactic Acid 1.4 MMOL/L (0.7-2.1) 09/14/18 05:13 Calcium 9.2 mg/dL (8.4-10.2) 09/23/18 05:55 Phosphorus 4.3 mg/dl (2.5-4.5) 09/17/18 04:31 Magnesium 1.7 MG/DL (1.6-2.3) 09/17/18 04:31 Total Bilirubin 0.1 mg/dl (0.2-1.3) L 09/17/18 04:31 AST 39 U/L (14-36) H D 09/17/18 04:31 ALT 49 U/L (9-52) 09/17/18 04:31 Alkaline Phosphatase 71 U/L (38-126) 09/17/18 04:31 Total Creatine Kinase 58 U/L (30-135) 09/16/18 05:47 Total Protein 6.3 G/DL (6.3-8.2) 09/17/18 04:31 Albumin 3.3 g/dL (3.5-5.0) L 09/17/18 04:31 Globulin 3.0 gm/dL (2.2-3.9) 09/17/18 04:31 Albumin/Globulin Ratio 1.1 (1.0-2.1) 09/17/18 04:31 Venous Blood Potassium 3.7 mmol/L (3.6-5.2) 09/13/18 09:30 Urine Opiates Screen Negative (NEGATIVE) 09/13/18 09:54 Urine Methadone Screen Negative (NEGATIVE) 09/13/18 09:54 Ur Barbiturates Screen Negative (NEGATIVE) 09/13/18 09:54 Phenytoin < 3.0 ug/ML (10-20) L 09/13/18 00:04 Free Phenytoin 1.9 mg/L (1.0-2.0) 09/16/18 04:18 Ur Phencyclidine Scrn Negative (NEGATIVE) 09/13/18 09:54 Ur Amphetamines Screen Negative (NEGATIVE) 09/13/18 09:54 U Benzodiazepines Scrn Negative (NEGATIVE) 09/13/18 09:54 U Oth Cocaine Metabols Negative (NEGATIVE) 09/13/18 09:54 U Cannabinoids Screen Negative (NEGATIVE) 09/13/18 09:54 Alcohol, Quantitative < 10 mg/dl (0-10) 09/13/18 00:04 Influenza Typ A,B (EIA) Negative for flu a/b (NEGATIVE) 09/13/18 07:59 Discharge Exam - Head Exam Head Exam: ATRAUMATIC, NORMOCEPHALIC Discharge Plan - Discharge Medications Prescriptions: Phenytoin, Extended [Dilantin] 400 mg PO HS #30 cer - Follow Up Plan Condition: GUARDED Disposition: HOME/ ROUTINE Instructions: Seizures, Adult (DC) Additional Instructions: referred to Baby Formula Mixer and Physical Therapist - patient sent home with walker. Referrals: Blayne Hall MD [Staff Provider] - Na Cazares MD [Medical Doctor] - Flora Madsen MD [Medical Doctor] -
== END 2018-09-23 13:50 | disposition home or self-care (01) | DRG 100 ==
LOC: H.ER 23:11 → H.ERHOLD 09-13 13:03 → H.ICU/CCU 09-13 14:30 → H.MEDSURG1 09-17 18:05
PROVIDERS: ADMIT Internal Medicine; ATTEND Internal Medicine
PROC: 009U3ZX Drainage of Spinal Canal, Percutaneous Approach, Diagnostic (ICD-10-PCS; principal; 2018-09-13)
PROC: B01B1ZZ Fluoroscopy of Spinal Cord using Low Osmolar Contrast (ICD-10-PCS; 2018-09-13)
PROC: 3E0234Z Introduction of Serum, Toxoid and Vaccine into Muscle, Percutaneous Approach (ICD-10-PCS; 2018-09-17)
DX: G40.909 Epilepsy, unspecified, not intractable, without status epilepticus (principal); J69.0 Pneumonitis due to inhalation of food and vomit; F10.239 Alcohol dependence with withdrawal, unspecified; M62.82 Rhabdomyolysis; F01.51 Vascular dementia, unspecified severity, with behavioral disturbance; G40.89 Other seizures; D63.8 Anemia in other chronic diseases classified elsewhere; F10.229 Alcohol dependence with intoxication, unspecified; H10.9 Unspecified conjunctivitis; Z91.14 Patient's other noncompliance with medication regimen; Z23 Encounter for immunization; F17.210 Nicotine dependence, cigarettes, uncomplicated; Z59.0 Homelessness; R06.89 Other abnormalities of breathing; Y90.6 Blood alcohol level of 120-199 mg/100 ml

== ENCOUNTER 2018-09-29 10:01 | Emergency (ER) | payer MEDICAID, OTHER ==
[2018-09-29 10:06] VITALS: BMI 23.6
--- NOTE | 2018-09-29 10:45 | ED PDOC ---
Lower Extremity Pain/Injury Time Seen by Provider: 09/29/18 10:16 Chief Complaint (Nursing): Lower Extremity Problem/Injury Chief Complaint (Provider): left leg pain History Per: Patient, EMS Additional Complaint(s): 48 y/o female with history of alcohol abuse and seizures presents with left leg pain. Patient states pain has been ongoing for the past several weeks. She denies any recent fall or trauma. Patient is able to walk but has pain when doing so. Patient was discharged from this hospital on 09/23/18 and was given a walker but she states she misplaced it. Patient did not take any meds for pain relief. PMD: none Past Medical History Reviewed: Historical Data, Nursing Documentation, Vital Signs Vital Signs: Last Vital Signs Temp 98.5 F 09/29/18 10:05 Pulse 91 H 09/29/18 10:05 Resp 20 09/29/18 10:05 BP 142/82 09/29/18 10:05 Pulse Ox 97 09/29/18 10:05 - Medical History PMH: Seizures - Family History Family History: States: Unknown Family Hx - Living Arrangements Living Arrangements: With Family - Social History Current smoker - smoking cessation education provided: No Alcohol: Other (h/o of etoh abuse) Drugs: Denies - Immunization History Hx Tetanus Toxoid Vaccination: No Hx Influenza Vaccination: No Hx Pneumococcal Vaccination: No - Home Medications Home Medications: Ambulatory Orders Medication Instructions Recorded Ibuprofen [Motrin Tab] 600 mg PO Q6 #30 tab 01/26/17 Folic Acid 1 mg PO DAILY #0 tab 09/23/18 Phenytoin, Extended [Dilantin] 400 mg PO HS #30 cer 09/23/18 Thiamine [Vitamin B1 Tab] 100 mg PO DAILY tab 09/23/18 Ibuprofen [Motrin Tab] 800 mg PO Q8 PRN #20 tab 09/29/18 - Allergies Allergies/Adverse Reactions: Allergies Allergy/AdvReac Type Severity Reaction Status Date / Time No Known Allergies Allergy Verified 09/29/18 10:30 Wells Criteria for PE - Wells Criteria for Pulmonary Embolism Clinical Signs and Symptoms of DVT: No P.E is #1 Diagnosis, or Equally Likely: No Heart Rate >100: No Immobilization at least 3 days;Surgery previous 4 weeks: No Previous, objectively diagnosed PE or DVT: No Hemoptysis: No Malignancy w/treatment within 6 months, or palliative: No Total Score: 0 Review of Systems ROS Statement: Except As Marked, All Systems Reviewed And Found Negative Constitutional: Negative for: Fever Cardiovascular: Negative for: Chest Pain Respiratory: Negative for: Cough Gastrointestinal: Negative for: Nausea, Vomiting Musculoskeletal: Positive for: Leg Pain (chronic left leg pain) Physical Exam - Reviewed Nursing Documentation Reviewed: Yes Vital Signs Reviewed: Yes - Physical Exam Appears: Positive for: Well, Non-toxic, No Acute Distress Head Exam: Positive for: ATRAUMATIC, NORMAL INSPECTION Skin: Positive for: Normal Color. Negative for: Rash Eye Exam: Positive for: Normal appearance Cardiovascular/Chest: Positive for: Regular Rate, Rhythm Respiratory: Positive for: Normal Breath Sounds. Negative for: Respiratory Distress Extremity: Positive for: Other (full range of motion of left hip, knee and ankle, no swelling or ecchymosis noted to left lower extremity, pain elicited with movement of left knee and weight bearing, no bony deformity noted, no calf swelling or tenderness ). Negative for: Calf Tenderness Neurologic/Psych: Positive for: Alert, Oriented - ECG O2 Sat by Pulse Oximetry: 97 Pulse Ox Interpretation: Normal - Other Rad Left knee x-ray X-Ray: Interpreted by Me, Viewed By Me X-Ray Interpretation: no fx, no dis Medical Decision Making Medical Decision Makin48 year old with chronic left leg pain Plan: IM toradol PO tylenol X-ray left knee Patient is aware of diagnostic testing results. All questions answered. Ariela pittman states she lost her walker. She was offered crutches but declined these. Rx motrin provided. Patient has paperwork from her previous discharge with rx for dilantin that she did not yet fill. I stressed to patient the importance of taking dilantin as prescribed. Patient states she has not had any seizure activity recently. Patient was noted to be ambulatory with steady gait while leaving ED. Disposition - Clinical Impression Clinical Impression: Chronic pain of left lower extremity - Patient ED Disposition Is Patient to be Admitted: No Counseled Patient/Family Regarding: Studies Performed, Diagnosis, Need For Followup, Rx Given - Disposition Referrals: [facility] [Outside] Disposition: Routine/Home Disposition Time: 13:05 Condition: STABLE Additional Instructions: TAKE RX MEDS DIRECTED. FOLLOW UP WITH CLINIC. Prescriptions: Ibuprofen [Motrin Tab] 800 mg PO Q8 PRN #20 tab PRN Reason: Pain, Moderate (4-7) Instructions: Lower Extremity Muscle Strain (DC) Forms: [facility] [employer] (Czech) Print Language: CHINESE
[2018-09-29 13:33] VITALS: BP 129/70; PULSE 84; RESP 18; TEMP 98.4
[2018-09-29 13:36] VITALS: O2SAT 97
--- NOTE | 2018-09-29 16:16 | RAD ---
Date of service: 09/29/2018 PROCEDURE: Left Knee Radiographs. HISTORY: Pain. COMPARISON: None. FINDINGS: BONES: Normal. No fracture. JOINTS: Normal. No osteoarthritis. JOINT EFFUSION: None. OTHER FINDINGS: Probable cyst trace lateral patellar tilt. IMPRESSION: No fracture or lytic lesion. Interval trace lateral patellar tilt. No subluxation seen
== END 2018-09-29 13:32 | disposition home or self-care (01) ==
LOC: H.ER 10:01
DX: G89.29 Other chronic pain (principal); M25.562 Pain in left knee
CPT/HCPCS: 73562; 96372; 99284; J1885

== ENCOUNTER 2018-10-02 08:02 | Emergency (ER) | payer MEDICAID, OTHER ==
[2018-10-02 08:02] VITALS: BMI 23.6
[2018-10-02 08:07] VITALS: BP 131/84; PULSE 91; RESP 18; TEMP 98.3; O2SAT 97
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
--- NOTE | 2018-10-02 09:38 | RAD ---
Date of service: 10/02/2018 PROCEDURE: Right Knee Radiographs. HISTORY: trauma COMPARISON: None. FINDINGS: BONES: No acute fracture or destructive bony lesion identified. JOINTS: Mild joint space narrowing seen at the medial femorotibial compartment with degenerative joint disease. Remaining joint compartments are unremarkable appearing. JOINT EFFUSION: None. OTHER FINDINGS: None. IMPRESSION: No acute fracture or dislocation. Degenerative changes are seen at the medial femorotibial compartment.
== END 2018-10-02 09:20 | disposition home or self-care (01) ==
LOC: H.ER 08:02
DX: S80.01XA Contusion of right knee, initial encounter (principal); Y04.0XXA Assault by unarmed brawl or fight, initial encounter; Y92.89 Other specified places as the place of occurrence of the external cause

== ENCOUNTER 2018-10-10 16:21 | Emergency (ER) | payer MEDICAID, OTHER ==
[2018-10-10 16:21] VITALS: BMI 23.6
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
[2018-10-10 18:19] LABS: BASO # 0.1 K/uL (0.0-0.2); BASO % 0.8 % (0.0-2.0); EOS % 0.7 % (0.0-4.0); HEMOGLOBIN 12.3 g/dL (12.0-16.0); LYMPH # 0.9 K/uL (1.0-4.3); LYMPH % 13.1 % (20.0-40.0); MEAN CELL VOLUME 94.7 fl (81.0-99.0); MEAN CORPUSCULAR HGB CONC 32.7 g/dL (33.0-37.0); MEAN PLATELET VOLUME 7.9 fl (7.2-11.7); MONO # 0.6 K/uL (0.0-0.8); MONO % 8.8 % (0.0-10.0); NEUT # 5.2 K/uL (1.8-7.0); NEUT % 76.6 % (50.0-75.0); RBC 3.97 Mil/uL (3.80-5.20); RED CELL DISTRIBUTION WIDTH 15.9 % (11.5-14.5); WHITE BLOOD COUNT 6.8 K/uL (4.8-10.8)
[2018-10-10 18:30] LABS: BLOOD UREA NITROGEN 22 mg/dl (7-17); CALCIUM 9.3 mg/dL (8.4-10.2); GFR NON-AFRICAN AMERICAN 59
[2018-10-10 19:44] LABS: BARBITURATES, UR NEGATIVE (NEGATIVE)
--- NOTE | 2018-10-10 19:44 | ED PDOC ---
- Laboratory Results Result Diagrams: 10/10/18 17:55 10/10/18 17:55 Medical Decision Making Medical Decision Making: Time: 1899 --Patient signed out to this provider by Dr. Tucker, pending crisis evaluation. Scribe Attestation: Documented by Zahida Enrique, acting as a scribe for Melvin Caruso MD. Provider Scribe Attestation: All medical record entries made by the Scribe were at my direction and pers onally dictated by me. I have reviewed the chart and agree that the record accurately reflects my personal performance of the history, physical exam, medical decision making, and the department course for this patient. I have also personally directed, reviewed, and agree with the discharge instructions and disposition. Time: 335 -- Patient evaluated by crisis who state patient is stable for discharge home with a diagnosis of depression. Scribe Attestation: Documented by Seferino Bird, acting as a scribe for Melvin Caruso MD. Provider Scribe Attestation: All medical record entries made by the Scribe were at my direction and personally dictated by me. I have reviewed the chart and agree that the record accurately reflects my personal performance of the history, physical exam, medical decision making, and the department course for this patient. I have also personally directed, reviewed, and agree with the discharge instructions and disposition. Disposition Counseled Patient/Family Regarding: Studies Performed, Diagnosis - Clinical Impression Clinical Impression: Depression - POA Present On Arrival: None - Disposition Disposition: Routine/Home Disposition Time: 03:37 Condition: STABLE Instructions: Depression Forms: [facility] ([place])
[2018-10-10 19:45] LABS: BENZODIAZEPINES, UR NEGATIVE (NEGATIVE); OPIATES, UR NEGATIVE (NEGATIVE); PHENCYCLIDINE, UR NEGATIVE (NEGATIVE)
[2018-10-10 21:09] VITALS: RESP 18
[2018-10-11 06:52] VITALS: BP 115/75; PULSE 70; O2SAT 99
== END 2018-10-11 06:30 | disposition home or self-care (01) ==
LOC: H.ER 16:21
DX: F32.9 Major depressive disorder, single episode, unspecified (principal); Z00.8 Encounter for other general examination
CPT/HCPCS: 80048; 81025; 85025; 96372; 99284; G0480; J2060